=== PATIENT | male | born 1945 | race Caucasian/White ===

== ENCOUNTER 2021-05-13 10:54 | Outpatient (CLI) | payer MEDICARE, MEDICAID, SELFPAY ==
[2021-05-13 11:22] LABS: Absolute Lymphocyte Count 0.83 X10^3/uL (0.83-4.51); Absolute Neutrophil Count 7.2 X10^3/uL (2.0-7.7); Basophil# 0.13 X10^3/uL; Basophil% 1.4 % (0-1); Eosinophil# 0.44 X10^3/uL; Eosinophils% 4.8 % (0-5); Hematocrit 35.8 % (40-54); Hemoglobin 12.2 g/dL (13.0-16.5); Lymphocyte # 0.83 X10^3/ul (0.83-4.51); Lymphocyte % 9.1 % (19-41); Mean Corp Hgb Conc 34.1 g/dL (32-36); Mean Corpuscular Hgb 32.4 pg (27.0-32.0); Mean Corpuscular Volume 95.2 fL (80-94); Mean Platelet Vol. 9.3 fl (6.2-12.0); Monocyte# 0.55 X10^3/uL; NRBC Flagged by Analyzer 0 % (0-5); Neutrophil # 7.17 X10^3/uL (2.7-7.7); Neutrophil % 78.3 % (47-70); Platelet Count 393 K/mm3 (150-450); RBC Distribution Width CV 13.8 % (11.6-14.6); RBC Distribution Width SD 48.6 fl (35.1-43.9); Red Blood Count 3.76 M/mm3 (4.6-6.2); White Blood Count 9.2 K/mm3 (4.4-11.0)
[2021-05-13 11:25] LABS: Erythrocyte Sedimentation Rate 75 mm/hr (0-20)
[2021-05-13 11:39] LABS: ALB/GLOB Ratio 0.5 RATIO (0.9-2.4); AST(SGOT) 52 U/L (15-37); Alanine Aminotransfer ALT/SGPT 23 U/L (16-61); Albumin, Serum 2.3 g/dL (3.2-5.0); Alkaline Phosphatase 366 U/L (45-117); Anion Gap 6 (5-15); BUN 7 mg/dL (7-18); BUN/Creat Ratio 8.3 RATIO (10-20); Calcium,Total 8.5 mg/dL (8.5-10.1); Chloride 106 mmol/L (98-107); Creatinine, Serum 0.84 mg/dL (0.70-1.30); EST Glomerular Filtration Rate 94 mL/min (>60); Est Glom Filt Rate - Afr Amer 114 mL/min (>60); Globulin 5.1 g/dL (2.2-4.2); Glucose 119 mg/dL (74-106); LDH 198 U/L (87-241); Protein, Total 7.4 g/dL (6.4-8.2); Sodium Level 139 mmol/L (136-145)
[2021-05-13 11:52] LABS: D-Dimer Quantitative (DVT/PE) 0.65 FEU/ug/m (0.27-0.49)
[2021-05-13 12:13] LABS: Ammonia < 10.0 umol/L (11-32)
[2021-05-14 16:09] LABS: Anti-Centromere B Ab <0.2 AI (0.0-0.9); Anti-Chromatin <0.2 AI (0.0-0.9); Anti-Jo <0.2 AI (0.0-0.9); Anti-Scleroderma-70 AB <0.2 AI (0.0-0.9); RNP Ab 0.3 AI (0.0-0.9); SJOGREN'S Anti-SS-A test < 0.2 AI (0.0-0.9); SJOGREN'S Anti-SS-B test < 0.2 AI (0.0-0.9); Smith Ab <0.2 AI (0.0-0.9)
[2021-05-15 09:38] LABS: Anti-Mitochondrial AB <20.0 Units (0.0-20.0); Anti-dsDNA Ab <1 IU/mL (0-9)
[2021-05-19 10:09] LABS: Angiotensin Convert Enzyme 76 U/L (14-82); Ceruloplasmin 35.4 mg/dL (16.0-31.0); Endomysial Antibody IgA Negative (Negative); Immunoglobulin A 424 mg/dL (61-437); Immunoglobulin E 1362 IU/mL (6-495); Immunoglobulin G 1622 mg/dL (603-1613)
[2021-05-19 18:30] LABS: AFP, Tumor Marker 2.4 ng/mL (0.0-8.4); Anti-Smooth Muscle ABS 6 Units (0-19); Carbohydrate Ag 19-9 2261 40 U/mL (0-35); Immunoglobulin M 82 mg/dL (15-143); t-Transglutaminase IgA <2 U/mL (0-3)
== END 2021-05-13 23:59 | disposition home or self-care (01) ==
LOC: LAB 10:59
PROVIDERS: Visit Provider Internal Medicine Gastroenterology
DX: K76.0 Fatty (change of) liver, not elsewhere classified (principal); R06.02 Shortness of breath
CPT/HCPCS: 36415; 80053; 82105; 82140; 82164; 82390; 82784; 82785; 83516; 83615; 85025; 85379; 85652; 86140; 86225; 86235; 86255; 86301

== ENCOUNTER 2021-05-13 11:26 | Inpatient (IN) | payer MEDICARE, MEDICAID, SELFPAY ==
[2021-05-13] VITALS (13 sets, daily range): BP systolic 88–139; BP diastolic 56–84; PULSE 57–87; RESP 16–23; TEMP 36.5–36.9; O2SAT 94–100; BMI 26.7; BMI 27.4; BMI 25.0
--- NOTE | 2021-05-13 11:32 | EKG12_ITS ---
Test Reason : UNRESPONSIVE/SIZING SPRAYER Blood Pressure : / mmHG Vent. Rate : 070 BPM Atrial Rate : 070 BPM P-R Int : 192 ms QRS Dur : 120 ms QT Int : 424 ms P-R-T Axes : 000 -62 048 degrees QTc Int : 457 ms Normal sinus rhythm Left axis deviation Right bundle branch block Abnormal ECG Confirmed by RAMILA MONROY, ROSMERY ([id number]), scientific editor KRISH FRITZ ([id number]) on 05/17/2021 11:02:45 AM Referred By: ROBEL Confirmed By:ROSMERY MCGRATH MD
--- NOTE | 2021-05-13 11:37 | CT_ITS ---
STUDY: CT BRAIN WITHOUT CONTRAST REASON FOR EXAM: Male, 75 years old. Altered mental status RADIATION DOSAGE (If Supplied By Facility): CTDIvol = ( 44.99 ) mGy, DLP = ( 796.11 ) mGycm TECHNIQUE: Transaxial CT imaging of the brain was performed without administration of intravenous contrast material. Individualized dose optimization techniques were used for this CT. COMPARISON: No relevant priors. FINDINGS: Normal soft tissue structures. Normal calvarium. There is mild cerebral atrophy with widening of the extra-axial spaces and ventricular dilatation. There are areas of decreased attenuation within the white matter tracts of the supratentorial brain, consistent with microvascular disease changes. Normal basal ganglia and thalami. Normal brainstem. Normal cerebellum. There is no intracranial hemorrhage. There are no findings of an acute ischemic infarction. Atherosclerotic calcification of the cavernous portions of the internal carotid arteries. Normal visualized paranasal sinuses. CT/Brain/Head without Contrast IMPRESSION: Chronic involutional changes of the brain. Electronically Signed: Kong Nieves MD at 12:53 EDT ,
--- NOTE | 2021-05-13 11:38 | EDS_ITS ---
HPI History of Present Illness Chief Complaint: Neuro S/Sx Informant: family Onset/Context/Timing Onset: Today Context: Sudden Onset Timing: - (Improving) Quality: Weakness, aphasia Location: Generalized Worsened by: Nothing Relieved by: Nothing Narrative Narrative: Patient presents with unresponsive episode that occurred today. Patient was getting labs drawn when he became unresponsive. Family was with him and noted that he was unable to speak. Family noted the patient was drooling from his mouth as well. Patient was brought to the emergency department. Currently, patient is able to speak. Patient is able to handle secretions. Patient is confused still. Patient denies any pain or headaches. [facility] Medical History (Updated 05/13/21 @ 16:11 by Estella Simeon) Atherosclerotic heart disease of [place] coronary artery without angina pectoris BMI 29.0-29.9,adult Chronic kidney disease, stage 2 (mild) Exertional dyspnea Fatty liver Generalized pruritus Hypertension Hypokalemia Low vitamin B12 level Lymphoma Mixed hyperlipidemia Stroke/cerebrovascular accident Home Medications amlodipine 5 mg tablet 5 mg PO DAILY 05/11/21 [History Last Taken 05/13/21] omega-3 fatty acids 1,000 mg capsule 1,000 mg PO BID 05/11/21 [History Last Taken 05/13/21] cholecalciferol (vitamin D3) 1,250 mcg PO MO 05/13/21 [History Last Taken ] cyanocobalamin (vitamin B-12) 1,000 mcg IM QMONTH 05/13/21 [History Last Taken 04/28/21] hydroxyzine HCl 10 mg PO TID 05/13/21 [History Last Taken 05/13/21] Allergy/AdvReac Type Severity Reaction Status Date / Time allopurinol Allergy Intermediate UNK Verified 05/13/21 11:28 Family History (Updated 05/11/21 @ 09:41 by Henny Fried) Father Emphysema of lung Mother Cancer Surgical History History of cholecystectomy Social History Smoking Status: Never smoker alcohol intake: never substance use type: does not use ROS ROS ED Constitutional Constitutional ED: Denies chills or fever(s) Eyes Eyes: Denies blurry vision or change in vision ENT ENT ED: Denies rhinorrhea or sore throat Cardiovascular Cardiovascular: Denies chest pain or palpitations Respiratory/Chest Respiratory/Chest: Denies cough or dyspnea Gastrointestinal Gastrointestinal: Reports abdominal pain; Denies nausea or vomiting Genitourinary Genitourinary ED: Denies dysuria or hematuria Musculoskeletal Musculoskeletal: Denies back pain or neck pain Integumentary Denies abscess or rash Neurologic Neurologic: Denies headache(s) or weakness Allergic/Immunologic Allergic/Immunologic ED: Denies mouth swelling or urticaria EXAM Physical Exam Const Vital Signs: 05/13/21 11:28 05/13/21 11:50 05/13/21 12:40 Temperature 98.0 F Temperature Source Temporal Pulse Rate 69 64 57 L Respiratory Rate 17 18 23 H Blood Pressure 88/56 L 111/57 L 117/66 Blood Pressure Mean 66 75 83 Pulse Ox 97 100 95 Oxygen Delivery Method Room Air Room Air Room Air 05/13/21 13:48 Temperature Temperature Source Pulse Rate 64 Respiratory Rate 20 H Blood Pressure 139/84 H Blood Pressure Mean 102 Pulse Ox Oxygen Delivery Method Room Air Positive well nourished and well developed General Appearance ED: well developed and NAD HEENT Reports moist mucous membranes Eyes General Eye ED: Yes scleral icterus Neck supple and no JVD Resp normal respiratory effort and clear to auscultation bilaterally Cardio regular rate and regular rhythm GI non-tender Palpation: soft Neuro CN's II-XII intact bilaterally and no sensory deficits noted Sensorium / Orientation: alert Motor Exam: strength 5/5 throughout MDM MDM MDM Narrative Medical decision making narrative: Stroke alert was not called because the patient symptoms were resolving rapidly while in triage. CBC was within normal limits. PT was INR and PTT were within normal limits. Basic metabolic profile showed slightly elevated glucose of 146. High-sensitivity troponin was less than 3. Lactic acid was slightly elevated at 2.2. Liver profile was ordered and showed an elevated total bilirubin of 5.4 and a direct bilirubin of 4.44. Alk phos was elevated at 343. AST and ALT were basically within normal limits. CT scan of the brain was obtained. There is no acute intracranial abnormality. There are some chronic involutional changes. This was interpreted by the radiologist and reviewed by myself. Portable chest x-ray was obtained. There is 1 view. On my interpretation, there is a left lower lobe pulmonary nodule. There is no acute infiltrate. There is no cardiomegaly. Bony thorax is normal. Radiologist also interpreted the x-ray and measured it at 2.8 x 2.0 cm. He recommended obtaining a CT scan. CT scan of the chest abdomen pelvis was ordered. There is a 3 cm x 1.6 cm nodule in the medial segment of the left lower lobe. There are dilated intrahepatic biliary ducts and common bile duct suggestive of choledocholithiasis in the distal segment of the common bile duct. This was interpreted by the radiologist and reviewed by myself. On reevaluation, patient is now awake, alert, and oriented x3. Patient was advised of his findings. Case was discussed with the hospitalist. She will admit the patient to the hospital. Patient and family understood and were agreeable with the plan. All questions were answered. Lab Data Attestation: I reviewed the patient's lab results. Labs: Laboratory Results - last 24 hr 05/13/21 05/13/21 05/13/21 11:35 11:35 11:35 WBC 10.3 RBC 3.72 L Hgb 11.8 L Hct 36.4 L MCV 97.8 H MCH 31.7 MCHC 32.4 RDW Std Deviation 50.4 H RDW Coeff of Sekou 13.9 Plt Count 441 MPV 9.5 Immature Gran % (Auto) 0.500 Neut % (Auto) 77.5 H Lymph % (Auto) 10.2 L [place] % (Auto) 6.8 Eos % (Auto) 3.8 Baso % (Auto) 1.2 H Absolute Neuts (auto) 8.0 H Absolute Lymphs (auto) 1.05 Nucleated RBC % 0 PT 14.1 INR 1.2 APTT 30.5 Sodium 140 Potassium 3.2 L Chloride 107 Carbon Dioxide 28.0 Anion Gap 5 BUN 7 Creatinine 0.92 Estim Creat Clear Calc 66.09 Est GFR (MDRD) Af Amer 103 Est GFR (MDRD) Non-Af 85 BUN/Creatinine Ratio 7.6 L Glucose 146 H Lactic Acid Calcium 8.6 Total Bilirubin Direct Bilirubin AST ALT Alkaline Phosphatase Troponin I High Sens < 3 L Total Protein Albumin Globulin Urine Color Urine Clarity Urine pH Ur Specific [place] Urine Protein Urine Glucose (UA) Urine Ketones Urine Occult Blood Urine Nitrite Urine Bilirubin Urine Urobilinogen Ur Leukocyte Esterase Urine RBC Urine WBC Ur Squamous Epith Cells Urine Bacteria Urine Mucus 05/13/21 05/13/21 05/13/21 11:35 11:55 14:30 WBC RBC Hgb Hct MCV MCH MCHC RDW Std Deviation RDW Coeff of [place]kou Plt Count MPV Immature Gran % (Auto) Neut % (Auto) Lymph % (Auto) [place] % (Auto) Eos % (Auto) Baso % (Auto) Absolute Neuts (auto) Absolute Lymphs (auto) Nucleated RBC % PT INR APTT Sodium Potassium Chloride Carbon Dioxide Anion Gap BUN Creatinine Estim Creat Clear Calc Est GFR (MDRD) Af Amer Est GFR (MDRD) Non-Af BUN/Creatinine Ratio Glucose Lactic Acid 2.2 H* Calcium Total Bilirubin 5.40 H Direct Bilirubin 4.44 H AST 54 H ALT 23 Alkaline Phosphatase 343 H Troponin I High Sens Total Protein 7.0 Albumin 2.2 L Globulin 4.8 H Urine Color Yellow Urine Clarity Clear Urine pH 7.0 Ur Specific [place] 1.010 Urine Protein 15 H Urine Glucose (UA) Normal Urine Ketones Negative Urine Occult Blood 10 H Urine Nitrite Negative Urine Bilirubin 3 H Urine Urobilinogen 8 H Ur Leukocyte Esterase 25 H Urine RBC 0 SEEN Urine WBC 0-5 SEEN Ur Squamous Epith Cells 0-5 SEEN Urine Bacteria 1+ Urine Mucus 0 SEEN Radiography Diagnostic Testing: Clinical Impression(s) from Imaging Studies Brain CT 05/13/21 11:37 IMPRESSION: Chronic involutional changes of the brain. Electronically Signed: Kong Nieves MD at 12:53 EDT , Chest X-Ray 05/13/21 12:10 IMPRESSION: 2.8 cm x 2 cm nodule in the posterior medial segment of the left lower lobe. CT scan recommended. Electronically Signed: Kong Nieves MD at 12:57 EDT , Chest/Abdomen/Pelvis CT 05/13/21 13:14 IMPRESSION: 3 cm x 1.6 cm heterogeneous nodule in the posterior medial segment of the left lower lobe. Correlation with the biopsy or PET scan recommended. Dilated intrahepatic biliary ducts and common bile duct. Findings suggestive of choledocholithiasis in the distal portion of the common bile duct. The patient is status post cholecystectomy. Electronically Signed: Kong Nieves MD at 13:50 EDT , EKG Initial EKG: Interpretation: Sinus Rhythm (70), No Acute Injury Pattern, RBBB and - (Left axis deviation at -62) Prior EKG tracings: not available for review Discharge Plan Dx/Rx/DC Orders Clinical Impression: Brain TIA, Choledocholithiasis Disposition Disposition: Acute Care Hospital [facility] Discharge Date/Time: 05/13/21 16:11
[2021-05-13] MEDS: 0.9% Normal Saline 1,000 ML 50 ML IV (11:56)
[2021-05-13 11:59] LABS: Absolute Lymphocyte Count 1.05 X10^3/uL (0.83-4.51); Basophil# 0.12 X10^3/uL; Basophil% 1.2 % (0-1); Eosinophil# 0.39 X10^3/uL; Eosinophils% 3.8 % (0-5); Hematocrit 36.4 % (40-54); Hemoglobin 11.8 g/dL (13.0-16.5); Lymphocyte # 1.05 X10^3/ul (0.83-4.51); Lymphocyte % 10.2 % (19-41); Mean Corp Hgb Conc 32.4 g/dL (32-36); Mean Corpuscular Hgb 31.7 pg (27.0-32.0); Mean Corpuscular Volume 97.8 fL (80-94); Mean Platelet Vol. 9.5 fl (6.2-12.0); Monocyte% 6.8 % (0-10); NRBC Flagged by Analyzer 0 % (0-5); Neutrophil # 8.01 X10^3/uL (2.7-7.7); Neutrophil % 77.5 % (47-70); Platelet Count 441 K/mm3 (150-450); RBC Distribution Width CV 13.9 % (11.6-14.6); RBC Distribution Width SD 50.4 fl (35.1-43.9); Red Blood Count 3.72 M/mm3 (4.6-6.2); White Blood Count 10.3 K/mm3 (4.4-11.0)
[2021-05-13 12:04] LABS: International Normalized Ratio 1.2; Prothrombin Time (Protime)PT. 14.1 SECONDS (11.7-14.9)
[2021-05-13 12:05] LABS: Partial Thromboplast Time 30.5 Seconds (24.1-36.2)
[2021-05-13 12:08] LABS: Anion Gap 5 (5-15); BUN 7 mg/dL (7-18); BUN/Creat Ratio 7.6 RATIO (10-20); Calcium,Total 8.6 mg/dL (8.5-10.1); Chloride 107 mmol/L (98-107); Creatinine, Serum 0.92 mg/dL (0.70-1.30); EST Glomerular Filtration Rate 85 mL/min (>60); Est Glom Filt Rate - Afr Amer 103 mL/min (>60); Estimated Creatinine Clearance 66.09 ml/min; Glucose 146 mg/dL (74-106); Potassium 3.2 mmol/L (3.5-5.1); Sodium Level 140 mmol/L (136-145); Troponin-I HS < 3 pg/mL (3.0-78.0)
--- NOTE | 2021-05-13 12:10 | RAD_ITS ---
STUDY: X-RAY CHEST REASON FOR EXAM: Male, 75 years old. Stroke TECHNIQUE: Single AP portable view of the chest. COMPARISON: None. FINDINGS: EKG electrodes are seen. There is a 2 cm x 2.8 cm nodule in the posterior medial segment of the left lower lobe. There is no demonstrated pleural abnormality. Normal size heart. Normal mediastinum and hernandez. Normal visualized pulmonary arteries. There is atherosclerotic tortuosity of the aortic arch and descending thoracic aorta. There are diffuse degenerative changes of the visualized thoracic spine. Dextroscoliosis. Healed fracture of the right fifth rib. There is no demonstrated abnormality of the visualized soft tissue structures of the upper abdomen. RAD/Chest 1 View (Portable) IMPRESSION: 2.8 cm x 2 cm nodule in the posterior medial segment of the left lower lobe. CT scan recommended. Electronically Signed: Kong Nieves MD at 12:57 EDT ,
[2021-05-13 12:27] LABS: Lactic Acid 2.2 mmol/L (0.4-1.9)
--- NOTE | 2021-05-13 13:14 | CT_ITS ---
STUDY: CT CHEST, ABDOMEN T PELVIS WITH CONTRAST REASON FOR EXAM: Male, 75 years old. Pulmonary nodule and jaundice. RADIATION DOSAGE (If Supplied By Facility): CTDIvol = ( 14.69 ) mGy, DLP = ( 1343.65 ) mGycm TECHNIQUE: Transaxial imaging was performed following intravenous administration of IV 100mL [id number]-300. Individualized dose optimization techniques were used for this CT. COMPARISON: Comparison made with prior chest radiograph done earlier today. FINDINGS: CHEST There is a 3 cm x 1.6 cm nodular density in the posterior medial segment of the left lower lobe. This has a heterogeneous appearance. Correlation with a PET scan or possible tissue diagnosis is recommended. There is no demonstrated pleural abnormality. There are calcifications of the coronary arteries. Normal mediastinum. Normal hilar regions. Normal unenhanced pulmonary arteries. Normal aorta arch and descending thoracic aorta. There are multi-level degenerative changes of the thoracic spine. Moderate sized hiatal hernia. ABDOMEN There is evidence of central intrahepatic biliary ductal dilatation. Dilated common bile duct proximally measuring 2.2 cm. In its distal portion, there appears to be 3 stones. This is suggestive of choledocholithiasis. There are surgical clips in the gallbladder fossa consistent with a prior cholecystectomy. Normal spleen. There is diffuse atrophy of the pancreas. Normal bilateral adrenal glands. Normal right kidney. Normal left kidney. Normal visualized stomach. Normal small intestine. There are multiple colonic diverticula consistent with diverticulosis. The appendix is visualized and appears normal. There is diffuse atherosclerotic calcification of the abdominal aorta, without a demonstrated aneurysm. Normal inferior vena cava. Normal retroperitoneum. Normal abdominal wall. There are diffuse degenerative changes of the visualized lumbar spine. PELVIS Normal urinary bladder. Prostatic enlargement. Prostatic calcification. Normal visualized small intestine. Normal visualized colon. There is no pelvic fluid. There is no pelvic lymphadenopathy or mass lesion. There is diffuse atherosclerotic calcification of the pelvic arteries. CT/CT Chest, Abd, Pel w/Contrast IMPRESSION: 3 cm x 1.6 cm heterogeneous nodule in the posterior medial segment of the left lower lobe. Correlation with the biopsy or PET scan recommended. Dilated intrahepatic biliary ducts and common bile duct. Findings suggestive of choledocholithiasis in the distal portion of the common bile duct. The patient is status post cholecystectomy. Electronically Signed: Kong Nieves MD at 13:50 EDT ,
[2021-05-13 14:15] LABS: AST(SGOT) 54 U/L (15-37); Alanine Aminotransfer ALT/SGPT 23 U/L (16-61); Albumin, Serum 2.2 g/dL (3.2-5.0); Alkaline Phosphatase 343 U/L (45-117); Bilirubin, Direct 4.44 mg/dL (0.00-0.30); Globulin 4.8 g/dL (2.2-4.2)
--- NOTE | 2021-05-13 14:33 | HP.PCM.HOS_ITS ---
HPI - General General Date of Admission: 05/13/21 HPI Narrative JERRICA ARGUTEA, is a 75 M with a PMH as outlined who presents via the ED after there was a rapid response called when he was getting outpatient blood work. He was noted to have a brief episode of inability to speak and drooling also. Symptoms had resolved by the time he got to the ED. He had been scheduled to have the labs done on outpatient basis for abnormal liver enzymes. Vitals in the ED were 139/84, VA of 64, RR of 20 and he was saturating at 95% on room air. CBC showed hemoglobin of 11.8 with WBC of 10.3 and platelets of 441. D-dimer was 0.65 which corrected for his age of 75, was actually within normal limits. INR was 1.2. Chemistry was significant for sodium of 140 and potassium of 3.2 as well as lactic acid of 2.2. Total bilirubin was 5.4 indirect globin was 4.44 with AST of 54 and ALP of 343. Ammonia level was less than 10. CT of the chest, abdomen and pelvis with contrast showed a 3 cm x 1.6 cm heterogeneous nodule in the posterior medial segment of the left lower lobe and dilated intrahepatic biliary ducts and common bile duct suggestive of choledocholithiasis in the distal portion of the common bile duct. Patient is s/p cholecystectomy. He has been admitted to be managed for syncope, concerning for TIA and abnormal liver enzymes. [facility] Medical History (Updated 05/13/21 @ 16:11 by Estella Simeon) Atherosclerotic heart disease of [place] coronary artery without angina pectoris BMI 29.0-29.9,adult Chronic kidney disease, stage 2 (mild) Exertional dyspnea Fatty liver Generalized pruritus Hypertension Hypokalemia Low vitamin B12 level Lymphoma Mixed hyperlipidemia Stroke/cerebrovascular accident Home Medications amlodipine 5 mg tablet 5 mg PO DAILY 05/11/21 [History Last Taken 05/13/21] omega-3 fatty acids 1,000 mg capsule 1,000 mg PO BID 05/11/21 [History Last Taken 05/13/21] cholecalciferol (vitamin D3) 1,250 mcg PO MO 05/13/21 [History Last Taken 05/09/21] cyanocobalamin (vitamin B-12) 1,000 mcg IM QMONTH 05/13/21 [History Last Taken 04/28/21] hydroxyzine HCl 10 mg PO TID 05/13/21 [History Last Taken 05/13/21] Allergy/AdvReac Type Severity Reaction Status Date / Time allopurinol Allergy Intermediate UNK Verified 05/13/21 11:28 Family History (Updated 05/11/21 @ 09:41 by Henny Fried) Father Emphysema of lung Mother Cancer Surgical History History of cholecystectomy Social History Smoking Status: Never smoker alcohol intake: never substance use type: does not use ROS Constitutional Constitutional: Denies fatigue, fever(s), malaise or weakness Eyes Eyes: Denies change in vision ENT HEENT: Reports nasal congestion; Denies dysphagia or headache(s) Cardiovascular Cardiovascular: Reports syncope; Denies chest pain, dyspnea on exertion, edema, lightheadedness, orthopnea, palpitations, paroxysmal nocturnal dyspnea or rapid heart rate Respiratory/Chest Respiratory/Chest: Denies cough, dyspnea, productive cough, shortness of breath at rest or shortness of breath with exertion Gastrointestinal Gastrointestinal: Denies abdominal pain, diarrhea, dyspepsia, nausea or vomiting Genitourinary Genitourinary: Denies burning urination, dysuria, hematuria, nocturia or urinary frequency Musculoskeletal Musculoskeletal: Denies back pain or joint pain Neurologic Neurologic: Denies confusion, dizziness, focal weakness, headache(s), seizures or syncope Psychiatric Psychiatric: Reports anxiety Hematologic/Lymphatic Hematologic/Lymphatic: Denies anemia Vital Signs Vital Signs Vital Signs: 05/13/21 11:28 05/13/21 11:50 05/13/21 12:40 Temperature 98.0 F Temperature Source Temporal Pulse Rate 69 64 57 L Respiratory Rate 17 18 23 H Blood Pressure 88/56 L 111/57 L 117/66 Blood Pressure Mean 66 75 83 Pulse Ox 97 100 95 Oxygen Delivery Method Room Air Room Air Room Air 05/13/21 13:48 Temperature Temperature Source Pulse Rate 64 Respiratory Rate 20 H Blood Pressure 139/84 H Blood Pressure Mean 102 Pulse Ox Oxygen Delivery Method Room Air Weight Weight: 176 lb Body Mass Index (BMI) 26.7 Physical Exam Const alert, oriented x3 and no apparent distress General Appearance: cooperative HEENT normocephalic, head/scalp atraumatic, hearing grossly normal bilaterally and moist oral mucous membranes Eyes PERRL, EOMs intact bilaterally and conjunctivae normal Neck no lymphadenopathy and supple Resp normal respiratory effort, no retractions, no use of accessory muscles and clear to auscultation bilaterally Cardio regular rate, regular rhythm, S1 normal heart sound, S2 normal heart sound and no murmurs GI normal to inspection, nondistended, normoactive bowel sounds, soft to palpation, non-tender and non-distended Extremity normal to inspection, full ROM and no clubbing, cyanosis or edema Peripheral Pulses: Yes pulses 2+ throughout Skin no rashes or lesions noted Neuro oriented x3 and CN's II-XII intact bilaterally Sensorium / Orientation: awake and alert Psych Psych Narrative: flat affect Results Lab / Micro Data Result Diagrams: 05/13/21 11:35 05/13/21 11:35 Labs: Laboratory Results - last 24 hr 05/13/21 11:35: WBC 10.3, RBC 3.72 L, Hgb 11.8 L, Hct 36.4 L, MCV 97.8 H, MCH 31.7, MCHC 32.4, RDW Std Deviation 50.4 H, RDW Coeff of Sekou 13.9, Plt Count 441, MPV 9.5, Immature Gran % (Auto) 0.500, Neut % (Auto) 77.5 H, Lymph % (Auto) 10.2 L, [place] % (Auto) 6.8, Eos % (Auto) 3.8, Baso % (Auto) 1.2 H, Absolute Neuts (auto) 8.0 H, Absolute Lymphs (auto) 1.05, Nucleated RBC % 0 05/13/21 11:35: PT 14.1, INR 1.2, APTT 30.5 05/13/21 11:35: Sodium 140, Potassium 3.2 L, Chloride 107, Carbon Dioxide 28.0, Anion Gap 5, BUN 7, Creatinine 0.92, Estim Creat Clear Calc 66.09, Est GFR (MDRD) Af Amer 103, Est GFR (MDRD) Non-Af 85, BUN/Creatinine Ratio 7.6 L, Glucose 146 H, Calcium 8.6, Troponin I High Sens < 3 L 05/13/21 11:35: Total Bilirubin 5.40 H, Direct Bilirubin 4.44 H, AST 54 H, ALT 23, Alkaline Phosphatase 343 H, Total Protein 7.0, Albumin 2.2 L, Globulin 4.8 H 05/13/21 11:55: Lactic Acid 2.2 H* Radiology Impression Brain CT 05/13/21 11:37 IMPRESSION: Chronic involutional changes of the brain. Electronically Signed: Kong Nieves MD at 12:53 EDT , Chest X-Ray 05/13/21 12:10 IMPRESSION: 2.8 cm x 2 cm nodule in the posterior medial segment of the left lower lobe. CT scan recommended. Electronically Signed: Kong Nieves MD at 12:57 EDT , Chest/Abdomen/Pelvis CT 05/13/21 13:14 IMPRESSION: 3 cm x 1.6 cm heterogeneous nodule in the posterior medial segment of the left lower lobe. Correlation with the biopsy or PET scan recommended. Dilated intrahepatic biliary ducts and common bile duct. Findings suggestive of choledocholithiasis in the distal portion of the common bile duct. The patient is status post cholecystectomy. Electronically Signed: Kong Nieves MD at 13:50 EDT , Assessment & Plan Assessment/Plan (1) Brain TIA: (2) Choledocholithiasis: PLAN: #Syncope, concerning for TIA * admit to pcu with telemetry * CT of the brain showed no acute intracranial pathology. * Check MRI of the brain. Patient states he is very claustrophobic so would want a medication to help calm him down before he has the MRI. * 2D echo. P.o. aspirin 81 mg daily. * Check orthostatics. PT OT consult. Fall precautions. * Hold off on giving statins for now on account of impaired liver enzymes. * #Hyperbilirubinemia * Bilirubin is elevated at 5.44. * Had CT of the abdomen done which showed dilated intrahepatic biliary ducts and common bile duct suggestive of possible choledocholithiasis in the distal portion of the common bile duct. Patient is s/p cholecystectomy. He also had a 3 cm x 1.6 cm heterogeneous nodule in the posterior medial segment of the left lower lobe of the lung. * Follows with gastroenterology. Per GI, will need ERCP while stroke has been ruled out. * #Hypertension: On amlodipine. DVT prophylaxis: SCDs. CODE STATUS: Full code * Patient and daughter counseled extensively about different types of CODE STATUS including full code, DNR CCA and DNR CCA. Patient elects to be full code. * Total [id number] time 16 minutes. Charges/Coding Visit Charges OBSV E&M: 36611 Initial observation care L3 Procedures Hospitalists Procedures: 12314 Advncd Care Plan 30 Min
[2021-05-13 14:36] LABS: Mucous, Urine 0 SEEN /hpf (<or=2+); Red Blood Cells-Urine 0 SEEN /hpf (0-5)
[2021-05-13 14:43] LABS: Color, Urine Yellow (Yellow); Glucose, Dipstick Normal (Normal); Ketone-Dipstick Negative (Negative); Leukocyte Esterase-Dipstick 25 /ul (Negative); Nitrite-Dipstick Negative (Negative); Occult Blood-Urine 10 /ul (Negative); Protein-Dipstick 15 mg/dl (Negative); Urine Clarity Clear (Clear); Urine Urobilinogen 8 mg/dl (Normal)
[2021-05-13 14:48] LABS: Urine Bilirubin Dipstick 3 mg/dL (Negative)
[2021-05-13 15:09] LABS: Bacteria 1+ /hpf (None Seen); Squamous Epithelial Cells - UA 0-5 SEEN /hpf (0-5); White Blood Cells 0-5 SEEN /hpf (0-5)
[2021-05-13 15:59] LABS: Reflex Lactate? Y
[2021-05-13 16:56] LABS: Lactic Acid 1.9 mmol/L (0.4-1.9)
[2021-05-13 17:14] LABS: Troponin-I HS < 3 pg/mL (3.0-78.0)
--- NOTE | 2021-05-13 18:15 | CON.PCM.GI_ITS ---
HPI Consult Data Date of Consult: 05/13/21 HPI Narrative HPI Narrative: JERRICA ARGUETA, is a 75 M who presented to the office today for Initial consultation for fatty liver disease. He is a resident of [facility]. He was noted to be jaundice during his admission with daughter reporting that he was previously diagnosed with fatty liver during hospit alization with [facility]. He was admitted to [facility] 11.. for in acute rhabdomyolysis without renal failure as a result of being on the ground for approximately three days secondary to weakness and fever. He was also found to have MRSA in his blood likely secondary to severe BLE cellulitis infection r/t scratching and bedbug infection and a complicated UTI. Reports SOB with exertion since discharge. 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 He presents here for evaluation of an fatty liver. His daughter who is with him has noticed he become more yellow. He denies any history of alcohol abuse or even usage in the past. He has no previous history of hepatitis C. He has no tattoos. He has not received any blood transfusions. As previously ordered, she thinks that his father of liver disease that was likely from alcoholism. He has been complaining of some itching on his extremities. He does not sleep very well. Says he usually falls asleep around 1:00 in the morning and wakes up in the afternoon the next day. He knows who the president is at this time. He knows what year it is at this time. He knows his name and his date of . He denies any history of ascites or GI bleeding. We will send him from the clinic over for biochemical evaluation. Patient was getting labs drawn when he became unresponsive. Family was with him and noted that he was unable to speak. Family noted the patient was drooling from his mouth as well. Patient was brought to the emergency department. Currently, patient is able to speak. Patient is able to handle secretions. Patient is confused still. Patient denies any pain or headaches. His initial CT is pending to see if he had an acute stroke. His biochemical profile did show elevated liver enzymes consistent with cholestatic hepatitis and jaundice. His CT scan of the chest abdomen pelvis had shown a suspicious mass in his lungs and multiple stones in his common bile duct. [facility] Medical History (Updated 05/13/21 @ 16:11 by Estella Simeon) Atherosclerotic heart disease of [place] coronary artery without angina pectoris BMI 29.0-29.9,adult Chronic kidney disease, stage 2 (mild) Exertional dyspnea Fatty liver Generalized pruritus Hypertension Hypokalemia Low vitamin B12 level Lymphoma Mixed hyperlipidemia Stroke/cerebrovascular accident Home Medications amlodipine 5 mg tablet 5 mg PO DAILY 05/11/21 [History Last Taken 05/13/21] omega-3 fatty acids 1,000 mg capsule 1,000 mg PO BID 05/11/21 [History Last Taken 05/13/21] cholecalciferol (vitamin D3) 1,250 mcg PO MO 05/13/21 [History Last Taken 05/09/21] cyanocobalamin (vitamin B-12) 1,000 mcg IM QMONTH 05/13/21 [History Last Taken 04/28/21] hydroxyzine HCl 10 mg PO TID 05/13/21 [History Last Taken 05/13/21] Allergy/AdvReac Type Severity Reaction Status Date / Time allopurinol Allergy Intermediate UNK Verified 05/13/21 11:28 Family History (Updated 05/11/21 @ 09:41 by Henny Fried) Father Emphysema of lung Mother Cancer Surgical History History of cholecystectomy Social History Smoking Status: Never smoker alcohol intake: never substance use type: does not use ROS Review of Systems ROS Unobtainable: other Constitutional Constitutional: Denies fatigue, fever(s), poor appetite, weight gain or weight loss ENT HEENT: Denies mouth lesions Cardiovascular Cardiovascular: Denies abdominal bloating, abdominal edema or abdominal pain Respiratory/Chest Respiratory/Chest: Denies change in mental status, change in phlegm color, chest congestion or chest tightness Gastrointestinal Gastrointestinal: Denies belching, bloating, change in bowel habits, change in stool character, chewing difficulty, coffee ground emesis, constipation, 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, diarrhea, dyspepsia, dysphagia, early satiety, excessive flatus, fecal incontinence, heartburn, hematemesis, hematochezia, hemorrhoids, loose stools, melena, nausea, odynophagia, rectal bleeding, tenesmus, vomiting or weight changes Genitourinary Genitourinary: Denies abdominal discomfort, burning urination or itching Musculoskeletal Musculoskeletal: Reports as per HPI; Denies muscle weakness or myalgias Integumentary Integumentary: Denies jaundice Neurologic Neurologic: Denies lack of coordination or weakness Psychiatric Psychiatric: Denies confusion, depression, memory loss, mood swings, paranoia or suicidal ideation Endocrine Endocrinology: Denies systems reviewed and no addt'l complaints, except as documented Hematologic/Lymphatic Hematologic/Lymphatic: Denies anemia, easy bleeding, easy bruising or lymphadenopathy Allergic/Immunologic Allergic/Immunologic: Denies systems reviewed and no addt'l complaints, except as documented Physical Exam Const alert General Appearance: cooperative Orientation / Consciousness: oriented to person HEENT hearing grossly normal bilaterally Head and Scalp: normal to inspection Face and Sinus: face symmetric Nose: external nose normal Mouth: oral and palatal mucosa normal Eyes conjunctivae normal General Eye: normal appearance of both eyes Neck full ROM General: normal visual inspection Lymph Lymphatic: no lymphadenopathy noted Chest inspection of chest normal and palpation of chest normal Chest: symmetrical chest wall rise Resp normal respiratory effort Effort and Inspection: able to speak in complete sentences Cardio regular rate GI non-distended Percussion: normal to percussion Rectal Exam: deferred Neuro Speech: speech normal Gait (Neuro): normal gait Lab / Micro Data Result Diagrams: 05/13/21 11:35 05/13/21 11:35 Labs: Laboratory Results - last 24 hr 05/13/21 11:35: WBC 10.3, RBC 3.72 L, Hgb 11.8 L, Hct 36.4 L, MCV 97.8 H, MCH 31.7, MCHC 32.4, RDW Std Deviation 50.4 H, RDW Coeff of [place] 13.9, Plt Count 441, MPV 9.5, Immature Gran % (Auto) 0.500, Neut % (Auto) 77.5 H, Lymph % (Auto) 10.2 L, [place] % (Auto) 6.8, Eos % (Auto) 3.8, Baso % (Auto) 1.2 H, Absolute Neuts (auto) 8.0 H, Absolute Lymphs (auto) 1.05, Nucleated RBC % 0 05/13/21 11:35: PT 14.1, INR 1.2, APTT 30.5 05/13/21 11:35: Sodium 140, Potassium 3.2 L, Chloride 107, Carbon Dioxide 28.0, Anion Gap 5, BUN 7, Creatinine 0.92, Estim Creat Clear Calc 66.09, Est GFR (MDRD) Af Amer 103, Est GFR (MDRD) Non-Af 85, BUN/Creatinine Ratio 7.6 L, Glucose 146 H, Calcium 8.6, Troponin I High Sens < 3 L 05/13/21 11:35: Total Bilirubin 5.40 H, Direct Bilirubin 4.44 H, AST 54 H, ALT 23, Alkaline Phosphatase 343 H, Total Protein 7.0, Albumin 2.2 L, Globulin 4.8 H 05/13/21 11:55: Lactic Acid 2.2 H* 05/13/21 14:30: Urine Color Yellow, Urine Clarity Clear, Urine pH 7.0, Ur Specific [place] 1.010, Urine Protein 15 H, Urine Glucose (UA) Normal, Urine Ketones Negative, Urine Occult Blood 10 H, Urine Nitrite Negative, Urine Bilirubin 3 H, Urine Urobilinogen 8 H, Ur Leukocyte Esterase 25 H, Urine RBC 0 SEEN, Urine WBC 0-5 SEEN, Ur Squamous Epith Cells 0-5 SEEN, Urine Bacteria 1+, Urine Mucus 0 SEEN 05/13/21 16:16: Lactic Acid 1.9 05/13/21 16:16: Troponin I High Sens < 3 L Radiology Impression Brain CT 05/13/21 11:37 IMPRESSION: Chronic involutional changes of the brain. Electronically Signed: Kong Nieves MD at 12:53 EDT , Chest X-Ray 05/13/21 12:10 IMPRESSION: 2.8 cm x 2 cm nodule in the posterior medial segment of the left lower lobe. CT scan recommended. Electronically Signed: Kong Nieves MD at 12:57 EDT , Chest/Abdomen/Pelvis CT 05/13/21 13:14 IMPRESSION: 3 cm x 1.6 cm heterogeneous nodule in the posterior medial segment of the left lower lobe. Correlation with the biopsy or PET scan recommended. Dilated intrahepatic biliary ducts and common bile duct. Findings suggestive of choledocholithiasis in the distal portion of the common bile duct. The patient is status post cholecystectomy. Electronically Signed: Kong Nieves MD at 13:50 EDT , Assessment & Plan Assessment/Plan (1) Choledocholithiasis: PLAN: Patient will need a ERCP. I will put him on antibiotics to help prevent cholangitis. At this time he is stable and getting worked up for an acute CVA. Once he is cleared from a medical standpoint we can take him for ERCP with stone removal. Charges/Coding Visit Charges Inpatient E&M: 16546 Init Hosp L3
[2021-05-13] MEDS: Potassium Chloride Oral Tablet 20 MEQ 60 MEQ PO (20:06)
[2021-05-13] MEDS: hydrOXYzine 10 MG Tablet PO (20:07)
[2021-05-13] MEDS: Omega-3 Acid Ethyl Esters 1 GM Capsule PO (20:07)
[2021-05-14] VITALS (12 sets, daily range): BP systolic 121–136; BP diastolic 52–76; PULSE 57–74; RESP 18; TEMP 36.7–36.8; O2SAT 95–100; BMI 25.0
[2021-05-14] MEDS: 0.9% Normal Saline 1,000 ML 50 ML IV (05:38)
[2021-05-14] MEDS: hydrOXYzine 10 MG Tablet PO ×3 (05:38→20:50)
--- NOTE | 2021-05-14 05:55 | ECHOD_ITS ---
Reason For Study: tia/cva Procedure This was a 2D Doppler, Color Flow transthoracic echocardiogram. Exam performed portable in patient room. Left Ventricle Normal left ventricle. The estimated ejection fraction is 55-60 %. Right Ventricle Normal right ventricle. Normal systolic function. Atria Normal left atrium. Normal right atrium. Intact atrial septum. Mitral Valve The mitral valve is structurally normal. No prolapse or stenosis seen. Trivial mitral valve insufficiency. Tricuspid Valve Normal tricuspid valve. No tricuspid valve insufficiency. Aortic Valve Normal aortic valve. Pulmonic Valve The pulmonic valve is not well visualized. Great Vessels Normal aortic root. Pericardium/Pleural No pericardial effusion. Medication Performed a rapid injection of agitated mix of 9 cc saline and 1cc air to assess for atrial septal defect. MMode/2D Measurements & Calculations LVIDd: 3.7 cm IVSd: 1.1 cm Ao root diam: 3.6 cm LVIDs: 2.6 cm LVPWd: 1.1 cm RVDd: 3.5 cm FS: 28.8 % LAV(MOD-sp4): 56.1 ml LVAd ap4: 31.0 cm2 LVAd ap2: 26.7 cm2 LVLd ap4: 8.1 cm LVLd ap2: 8.7 cm EDV(MOD-sp4): 97.6 ml EDV(MOD-sp2): 67.2 ml EDV(sp4-el): 100.8 ml EDV(sp2-el): 69.0 ml LVAs ap4: 17.3 cm2 LVAs ap2: 14.3 cm2 LVLs ap4: 6.7 cm LVLs ap2: 6.8 cm ESV(MOD-sp4): 38.1 ml ESV(MOD-sp2): 25.1 ml ESV(sp4-el): 38.0 ml ESV(sp2-el): 25.2 ml EF(MOD-sp4): 61.0 % EF(MOD-sp2): 62.6 % EF(sp4-el): 62.3 % SV(MOD-sp4): 59.5 ml SV(MOD-sp2): 42.1 ml SV(sp4-el): 62.8 ml LA A4 area: 21.5 cm2 LA dimension(2D): 3.8 cm RA A4 area: 13.9 cm2 Time Measurements MV dec time: 0.37 sec Doppler Measurements & Calculations MV E max michael: 73.3 cm/sec Lat Peak E' Michael: 10.2 cm/sec Med Peak E' Michael: 7.3 cm/sec MV A max michael: 110.3 cm/sec E/E' lat: 7.2 E/E' med: 10.1 MV E/A: 0.66 Ao V2 max: 160.2 cm/sec LV V1 max: 144.1 cm/sec TR max michael: 270.4 cm/sec Ao max P.3 mmHg LV V1 max P.3 mmHg TR max P.3 mmHg ECHO/Echo Complete Interpretation Summary The estimated ejection fraction is 55-60 %. Normal LV systolic function Negative Buble study No previous study to compare Ordering Physician: Natasha Arguelles Performed By: Christina Wesley RDCS, RVT
[2021-05-14 05:59] LABS: Absolute Lymphocyte Count 1.08 X10^3/uL (0.83-4.51); Absolute Neutrophil Count 5.8 X10^3/uL (2.0-7.7); Basophil# 0.07 X10^3/uL; Basophil% 0.9 % (0-1); Eosinophil# 0.55 X10^3/uL; Eosinophils% 6.8 % (0-5); Hematocrit 29.5 % (40-54); Lymphocyte # 1.08 X10^3/ul (0.83-4.51); Lymphocyte % 13.4 % (19-41); Mean Corp Hgb Conc 33.9 g/dL (32-36); Mean Corpuscular Hgb 32.2 pg (27.0-32.0); Mean Corpuscular Volume 94.9 fL (80-94); Mean Platelet Vol. 9.6 fl (6.2-12.0); Monocyte# 0.54 X10^3/uL; Monocyte% 6.7 % (0-10); NRBC Flagged by Analyzer 0 % (0-5); Neutrophil # 5.78 X10^3/uL (2.7-7.7); Neutrophil % 71.8 % (47-70); Platelet Count 292 K/mm3 (150-450); RBC Distribution Width CV 13.8 % (11.6-14.6); RBC Distribution Width SD 47.7 fl (35.1-43.9); Red Blood Count 3.11 M/mm3 (4.6-6.2); White Blood Count 8.1 K/mm3 (4.4-11.0)
[2021-05-14 06:49] LABS: Anion Gap 6 (5-15); BUN 7 mg/dL (7-18); Chloride 110 mmol/L (98-107); Cholesterol 185 mg/dL (200); EST Glomerular Filtration Rate 116 mL/min (>60); Est Glom Filt Rate - Afr Amer 140 mL/min (>60); Estimated Creatinine Clearance 64.89 ml/min; Glucose 89 mg/dL (74-106); High Density Lipoprotein 16 mg/dL; Potassium 3.4 mmol/L (3.5-5.1); Sodium Level 141 mmol/L (136-145); Triglycerides 188 mg/dL; Very Low Density Lipoprotein 38 mg/dL (5-40)
[2021-05-14] MEDS: Omega-3 Acid Ethyl Esters 1 GM Capsule PO ×2 (08:08→20:50)
[2021-05-14] MEDS: Potassium Chloride Oral Tablet 20 MEQ 40 MEQ PO (08:09)
[2021-05-14] MEDS: Aspirin 81 MG TAB.CHEW PO (08:12)
[2021-05-14] MEDS: amLODIPine 5 MG Tablet PO (08:12)
[2021-05-14] MEDS: LORazepam 2 MG/ML Syringe IV (11:17)
[2021-05-14] MEDS: 0.9% Saline Lock 10 ML Syringe IV (11:18)
--- NOTE | 2021-05-14 11:45 | MRI_ITS ---
EXAM: MR HEAD WITHOUT INTRAVENOUS CONTRAST CLINICAL INDICATION: Expressive aphasia. TECHNIQUE: Multiplanar and multisequence MR images of the brain were obtained without intravenous contrast. This report was created using [employer] report generation technology. COMPARISON: CT head without contrast 05/13/2021. FINDINGS: BRAIN AND EXTRA-AXIAL SPACES: No diffusion restriction to suspect acute or subacute ischemic infarct. T2 FLAIR hyperintensity foci in the periventricular white matter more than subcortical white matter are chronic white matter ischemic changes. No intra- or extra-axial hemorrhage. No intracranial mass or mass effect. Posterior fossa structures are unremarkable. No hydrocephalus. Basal cisterns are patent. SELLA: Unremarkable. Normal sella turcica, pituitary gland, infundibular stalk, optic chiasm and hypothalamus. AUDITORY SYSTEM: Unremarkable. The internal auditory canals are patent. BONES/JOINTS: Unremarkable. No discrete lytic or blastic abnormalities. SINUSES: Unremarkable as visualized. Clear. MASTOID AIR CELLS: Unremarkable as visualized. Clear. ORBITS: Unremarkable as visualized. Both globes, extraocular muscles, optic nerves and retrobulbar fat appear unremarkable. VASCULATURE: Unremarkable as visualized. Normal flow voids in the major intracranial circulation. MRI/Brain without Contrast IMPRESSION: 1. No MRI evidence of acute or subacute ischemic infarct or acute intracranial abnormality. 2. Chronic white matter ischemic changes in both cerebral hemispheres. Electronically Signed: Oneil Rodríguez MD at 14:10 EDT ,
--- NOTE | 2021-05-14 13:50 | PN.HOSP_ITS ---
Subjective Subjective Patient seen and examined. He said he felt better and had no active complaints overnight. Review of systems is otherwise negative. He had MRI of the brain today and report is pending. Objective Data Objective Data Vital Signs: Vital Signs Temp Pulse Resp BP Pulse Ox 98.1 F 60 18 121/61 H 99 05/14/21 12:00 05/14/21 12:00 05/14/21 12:00 05/14/21 12:00 05/14/21 12:00 Oxygen Delivery Method Room Air Weight: 174 lb 8 oz Body Mass Index (BMI) 25.0 Intake & Output: Intake and Output for Last 24 Hours 05/12/21 05/13/21 05/14/21 23:59 23:59 23:59 Intake Total 480 / 780 1425 / 1425 Output Total 200 / 200 Balance 480 / 780 1225 / 1225 Lab / Micro Data Result Diagrams: 05/14/21 05:46 05/14/21 05:46 Labs: Laboratory Results - last 24 hr 05/13/21 11:35: Total Bilirubin 5.40 H, Direct Bilirubin 4.44 H, AST 54 H, ALT 23, Alkaline Phosphatase 343 H, Total Protein 7.0, Albumin 2.2 L, Globulin 4.8 H 05/13/21 14:30: Urine Color Yellow, Urine Clarity Clear, Urine pH 7.0, Ur Specific [place] 1.010, Urine Protein 15 H, Urine Glucose (UA) Normal, Urine Ketones Negative, Urine Occult Blood 10 H, Urine Nitrite Negative, Urine Bilirubin 3 H, Urine Urobilinogen 8 H, Ur Leukocyte Esterase 25 H, Urine RBC 0 SEEN, Urine WBC 0-5 SEEN, Ur Squamous Epith Cells 0-5 SEEN, Urine Bacteria 1+, Urine Mucus 0 SEEN 05/13/21 16:16: Lactic Acid 1.9 05/13/21 16:16: Troponin I High Sens < 3 L 05/14/21 05:46: WBC 8.1, RBC 3.11 L, Hgb 10.0 L, Hct 29.5 L, MCV 94.9 H, MCH 32.2 H, MCHC 33.9, RDW Std Deviation 47.7 H, RDW Coeff of [place] 13.8, Plt Count 292, MPV 9.6, Immature Gran % (Auto) 0.400, Neut % (Auto) 71.8 H, Lymph % (Auto) 13.4 L, [place] % (Auto) 6.7, Eos % (Auto) 6.8 H, Baso % (Auto) 0.9, Absolute Neuts (auto) 5.8, Absolute Lymphs (auto) 1.08, Nucleated RBC % 0 05/14/21 05:46: Sodium 141, Potassium 3.4 L, Chloride 110 H, Carbon Dioxide 25.0, Anion Gap 6, BUN 7, Creatinine 0.70, Estim Creat Clear Calc 64.89, Est GFR (MDRD) Af Amer 140, Est GFR (MDRD) Non-Af 116, BUN/Creatinine Ratio 10.0, Glucose 89, Calcium 8.0 L, Triglycerides 188, Cholesterol 185, LDL Cholesterol 131 H, VLDL Cholesterol 38, HDL Cholesterol 16 L Radiography Diagnostic Testing: Radiology Impression Chest/Abdomen/Pelvis CT 05/13/21 13:14 IMPRESSION: 3 cm x 1.6 cm heterogeneous nodule in the posterior medial segment of the left lower lobe. Correlation with the biopsy or PET scan recommended. Dilated intrahepatic biliary ducts and common bile duct. Findings suggestive of choledocholithiasis in the distal portion of the common bile duct. The patient is status post cholecystectomy. Electronically Signed: Kong Nieves MD at 13:50 EDT , Echocardiogram 05/14/21 05:55 Interpretation Summary The estimated ejection fraction is 55-60 %. Normal LV systolic function Negative Buble study No previous study to compare Ordering Physician: Natasha Arguelles Performed By: Christina Wesley, RDCS, RVT Physical Exam Const alert, oriented x3 and no apparent distress General Appearance: cooperative Exam Limitations: no limitations HEENT normocephalic, head/scalp atraumatic, hearing grossly normal bilaterally and moist oral mucous membranes Head and Scalp: normocephalic Eyes PERRL, EOMs intact bilaterally and conjunctivae normal Neck no lymphadenopathy and supple Resp normal respiratory effort, no retractions, no use of accessory muscles and clear to auscultation bilaterally Cardio regular rate, regular rhythm, S1 normal heart sound, S2 normal heart sound and no murmurs GI normal to inspection, nondistended, normoactive bowel sounds, soft to palpation, non-tender and non-distended Extremity normal to inspection, full ROM and no clubbing, cyanosis or edema Peripheral Pulses: Yes pulses 2+ throughout Skin no rashes or lesions noted Neuro oriented x3 and CN's II-XII intact bilaterally Sensorium / Orientation: awake and alert Psych affect normal Assessment & Plan Assessment/Plan (1) Brain TIA: (2) Choledocholithiasis: PLAN: #Syncope, concerning for TIA * CT of the brain showed no acute intracranial pathology. * MRI of the brain done; report pending * 2D echo. P.o. aspirin 81 mg daily. * Orthostatics were negative. PT OT consult. Fall precautions. * Hold off on giving statins for now on account of impaired liver enzymes. * #Hyperbilirubinemia * Bilirubin is elevated at 5.44. * Had CT of the abdomen done which showed dilated intrahepatic biliary ducts and common bile duct suggestive of possible choledocholithiasis in the distal portion of the common bile duct. Patient is s/p cholecystectomy. He also had a 3 cm x 1.6 cm heterogeneous nodule in the posterior medial segment of the left lower lobe of the lung. * Follows with gastroenterology. Per GI, will need ERCP while stroke has been ruled out. * #Hypertension: On amlodipine. DVT prophylaxis: SCDs. CODE STATUS: Full code * Charges/Coding Visit Charges Inpatient E&M: 82092 Subs Hosp L2
--- NOTE | 2021-05-14 15:40 | CASEMGMT ---
Social Work Consult: Discharge planning. Referral source: NICOLE AMBROSE This addiction social worker reviewed chart, patient appears to be from [facility]. This addiction social worker attempted to see patient in room. Patient sleeping and was not able to be woken by this addiction social worker. Per nursing staff patient was given Ativan in order to be able to complete MRI today. Telephone call to patient daughter, Yasmin. Introduced self and addiction social worker role. Yasmin agreeable to speak with this addiction social worker. This addiction social worker inquired if plan is for patient to return to [facility] at discharge. Yasmin reports that patient is under medicaid waiver for the assisted living at [facility] and plan would be for patient to return if patient is physically able to be managed at assisted living level. Therapy has not seen patient yet due to patient sleeping and having test. Yasmin aware that therapy has not assessed patient yet. Yasmin agreeable with patient returning to [facility] if patient is physically and medically cleared to do so over the weekend. Green Sheet placed on patient chart. PLAN: [facility] assisted living. Surinder BALLARD, AIYANA
--- NOTE | 2021-05-14 16:00 | CASEMGMT ---
NICOLE AMBROSE NOTE: Pt groggy at this time after being medicated for MRI. NICOLE AMBROSE spoke w/dtr, Yasmin, on the phone. MCDERMOTT form explained re: Observation status for treatment of syncope and elevated liver enzymes. Explained hospitalization will be paid per his insurance policy for Outpatient billing and condition will continue to be evaluated for Inpt necessity. Also let pt know that [facility] sends paper in the billing packet with their phone number if questions arise. Yasmin verbalizes understanding and does not have further questions. Form signed via telephone signature, copy made and placed in chart, and original placed in pt's room. Adelaide VIVAR RN, CM
[2021-05-15] VITALS (11 sets, daily range): BP systolic 113–138; BP diastolic 60–79; PULSE 58–89; RESP 16–18; TEMP 36.6–37; O2SAT 94–99
[2021-05-15 05:27] LABS: Absolute Lymphocyte Count 0.97 X10^3/uL (0.83-4.51); Absolute Neutrophil Count 5.4 X10^3/uL (2.0-7.7); Basophil% 1.3 % (0-1); Eosinophil# 0.63 X10^3/uL; Eosinophils% 8.3 % (0-5); Hematocrit 31.5 % (40-54); Hemoglobin 10.5 g/dL (13.0-16.5); Lymphocyte # 0.97 X10^3/ul (0.83-4.51); Lymphocyte % 12.7 % (19-41); Mean Corp Hgb Conc 33.3 g/dL (32-36); Mean Corpuscular Hgb 31.3 pg (27.0-32.0); Mean Platelet Vol. 9.3 fl (6.2-12.0); Monocyte# 0.45 X10^3/uL; Monocyte% 5.9 % (0-10); NRBC Flagged by Analyzer 0 % (0-5); Neutrophil # 5.43 X10^3/uL (2.7-7.7); Neutrophil % 71.4 % (47-70); Platelet Count 289 K/mm3 (150-450); RBC Distribution Width CV 13.8 % (11.6-14.6); RBC Distribution Width SD 47.5 fl (35.1-43.9); Red Blood Count 3.35 M/mm3 (4.6-6.2); White Blood Count 7.6 K/mm3 (4.4-11.0)
[2021-05-15] MEDS: hydrOXYzine 10 MG Tablet PO ×3 (05:40→20:43)
[2021-05-15] MEDS: 0.9% Normal Saline 1,000 ML 50 ML IV (05:43)
[2021-05-15 05:48] LABS: Anion Gap 2 (5-15); BUN 7 mg/dL (7-18); Calcium,Total 7.9 mg/dL (8.5-10.1); Chloride 108 mmol/L (98-107); EST Glomerular Filtration Rate 116 mL/min (>60); Est Glom Filt Rate - Afr Amer 141 mL/min (>60); Estimated Creatinine Clearance 64.89 ml/min; Glucose 92 mg/dL (74-106); Potassium 3.6 mmol/L (3.5-5.1); Sodium Level 139 mmol/L (136-145)
[2021-05-15] MEDS: Omega-3 Acid Ethyl Esters 1 GM Capsule PO ×2 (10:07→20:43)
[2021-05-15] MEDS: amLODIPine 5 MG Tablet PO (10:07)
[2021-05-15] MEDS: Aspirin 81 MG TAB.CHEW PO (10:07)
--- NOTE | 2021-05-15 11:33 | PN_ITS ---
Subjective Subjective Patient ate this morning without any problems. He is complaining of some right upper quadrant pain and mild nausea. Objective Data Objective Data Vital Signs: Vital Signs Temp Pulse Resp BP Pulse Ox 97.9 F 79 16 124/79 H 96 05/15/21 09:55 05/15/21 09:55 05/15/21 09:55 05/15/21 09:55 05/15/21 09:55 Oxygen Delivery Method Room Air Weight: 174 lb 8 oz Body Mass Index (BMI) 25.0 Intake & Output: Intake and Output for Last 24 Hours 05/13/21 05/14/21 05/15/21 23:59 23:59 23:59 Intake Total 480 / 780 1425 / 1425 1820 / 1820 Output Total 200 / 200 200 / 200 Balance 480 / 780 1225 / 1225 1620 / 1620 Lab / Micro Data Result Diagrams: 05/15/21 05:17 05/15/21 05:17 Labs: Laboratory Results - last 24 hr 05/15/21 05:17: WBC 7.6, RBC 3.35 L, Hgb 10.5 L, Hct 31.5 L, MCV 94.0, MCH 31.3, MCHC 33.3, RDW Std Deviation 47.5 H, RDW Coeff of [place] 13.8, Plt Count 289, MPV 9.3, Immature Gran % (Auto) 0.400, Neut % (Auto) 71.4 H, Lymph % (Auto) 12.7 L, [place] % (Auto) 5.9, Eos % (Auto) 8.3 H, Baso % (Auto) 1.3 H, Absolute Neuts (auto) 5.4, Absolute Lymphs (auto) 0.97, Nucleated RBC % 0 05/15/21 05:17: Sodium 139, Potassium 3.6, Chloride 108 H, Carbon Dioxide 29.0, Anion Gap 2 L, BUN 7, Creatinine 0.70, Estim Creat Clear Calc 64.89, Est GFR (MDRD) Af Amer 141, Est GFR (MDRD) Non-Af 116, BUN/Creatinine Ratio 10.0, Glucose 92, Calcium 7.9 L Radiography Diagnostic Testing: Radiology Impression Echocardiogram 05/14/21 05:55 Interpretation Summary The estimated ejection fraction is 55-60 %. Normal LV systolic function Negative Buble study No previous study to compare Ordering Physician: Natasha Arguelles Performed By: Christina Wesley, LUCÍACS, RVT Brain MRI 05/14/21 11:45 IMPRESSION: 1. No MRI evidence of acute or subacute ischemic infarct or acute intracranial abnormality. 2. Chronic white matter ischemic changes in both cerebral hemispheres. Electronically Signed: Oneil Rodríguez MD at 14:10 EDT , Physical Exam Const alert General Appearance: cooperative Orientation / Consciousness: oriented to person HEENT hearing grossly normal bilaterally Head and Scalp: normal to inspection Face and Sinus: face symmetric Nose: external nose normal Mouth: oral and palatal mucosa normal Eyes conjunctivae normal General Eye: normal appearance of both eyes Neck full ROM General: normal visual inspection Lymph Lymphatic: no lymphadenopathy noted Chest inspection of chest normal and palpation of chest normal Chest: symmetrical chest wall rise Resp normal respiratory effort Effort and Inspection: able to speak in complete sentences Cardio regular rate GI non-distended Percussion: normal to percussion Rectal Exam: deferred Neuro Speech: speech normal Gait (Neuro): normal gait Assessment & Plan Assessment/Plan (1) Choledocholithiasis: PLAN: Plan is for ERCP tomorrow. N.p.o. after midnight. I will start him on Levaquin 500 mg once a day. Charges/Coding Visit Charges Inpatient E&M: 01549 Subs Hosp L2
[2021-05-15] MEDS: levoFLOXacin IV 500 MG/100 ML BAG 100 MG IV (12:56)
--- NOTE | 2021-05-15 14:16 | PN.HOSP_ITS ---
Subjective Subjective Patient seen and examined. He has no active complaints today and felt well. He asked why he felt short of breath. He was not in respiratory distress at time I reivewed him, and was on room air and breathing comfortably. He then said he sometimes felt short of breath with walking. Review of systems is otherwise nega tive. Objective Data Objective Data Vital Signs: Vital Signs Temp Pulse Resp BP Pulse Ox 97.9 F 79 16 124/79 H 96 05/15/21 09:55 05/15/21 09:55 05/15/21 09:55 05/15/21 09:55 05/15/21 09:55 Oxygen Delivery Method Room Air Weight: 174 lb 8 oz Body Mass Index (BMI) 25.0 Intake & Output: Intake and Output for Last 24 Hours 05/13/21 05/14/21 05/15/21 23:59 23:59 23:59 Intake Total 480 / 780 1425 / 1425 1820 / 1820 Output Total 200 / 200 200 / 200 Balance 480 / 780 1225 / 1225 1620 / 1620 Lab / Micro Data Result Diagrams: 05/15/21 05:17 05/15/21 05:17 Labs: Laboratory Results - last 24 hr 05/15/21 05:17: WBC 7.6, RBC 3.35 L, Hgb 10.5 L, Hct 31.5 L, MCV 94.0, MCH 31.3, MCHC 33.3, RDW Std Deviation 47.5 H, RDW Coeff of Sekou 13.8, Plt Count 289, MPV 9.3, Immature Gran % (Auto) 0.400, Neut % (Auto) 71.4 H, Lymph % (Auto) 12.7 L, [place] % (Auto) 5.9, Eos % (Auto) 8.3 H, Baso % (Auto) 1.3 H, Absolute Neuts (auto) 5.4, Absolute Lymphs (auto) 0.97, Nucleated RBC % 0 05/15/21 05:17: Sodium 139, Potassium 3.6, Chloride 108 H, Carbon Dioxide 29.0, Anion Gap 2 L, BUN 7, Creatinine 0.70, Estim Creat Clear Calc 64.89, Est GFR (MDRD) Af Amer 141, Est GFR (MDRD) Non-Af 116, BUN/Creatinine Ratio 10.0, Glucose 92, Calcium 7.9 L Physical Exam Const alert, oriented x3 and no apparent distress General Appearance: cooperative Exam Limitations: no limitations HEENT normocephalic, head/scalp atraumatic, hearing grossly normal bilaterally and moist oral mucous membranes Head and Scalp: normocephalic Eyes PERRL, EOMs intact bilaterally and conjunctivae normal Neck no lymphadenopathy and supple Resp normal respiratory effort, no retractions, no use of accessory muscles and clear to auscultation bilaterally Cardio regular rate, regular rhythm, S1 normal heart sound, S2 normal heart sound and no murmurs GI normal to inspection, nondistended, normoactive bowel sounds, soft to palpation, non-tender and non-distended Extremity normal to inspection, full ROM and no clubbing, cyanosis or edema Peripheral Pulses: Yes pulses 2+ throughout Skin no rashes or lesions noted Skin Narrative: jaundiced skin Neuro oriented x3 and CN's II-XII intact bilaterally Sensorium / Orientation: awake and alert Psych affect normal Assessment & Plan Assessment/Plan (1) Brain TIA: (2) Choledocholithiasis: PLAN: #Syncope, concerning for TIA * CT of the brain showed no acute intracranial pathology. * MRI of the brain done was also negative. * 2D echo. P.o. aspirin 81 mg daily. * Orthostatics were negative. PT OT consult. Fall precautions. * Hold off on giving statins for now on account of impaired liver enzymes. * #Hyperbilirubinemia * Bilirubin was elevated * Had CT of the abdomen done which showed dilated intrahepatic biliary ducts and common bile duct suggestive of possible choledocholithiasis in the distal portion of the common bile duct. Patient is s/p cholecystectomy. He also had a 3 cm x 1.6 cm heterogeneous nodule in the posterior medial segment of the left lower lobe of the lung. * Follows with gastroenterology. * for ERCP tomorrow * GI on board * #Hypertension: On amlodipine. DVT prophylaxis: SCDs. CODE STATUS: Full code * Charges/Coding Visit Charges Inpatient E&M: 75744 Subs Hosp L2
[2021-05-16] VITALS (17 sets, daily range): BP systolic 105–137; BP diastolic 62–83; PULSE 53–80; RESP 16–18; TEMP 36.5–37.3; O2SAT 95–100; BMI 25.0
--- NOTE | 2021-05-16 00:58 | EKG12_ITS ---
Test Reason : PRE OP Blood Pressure : / mmHG Vent. Rate : 069 BPM Atrial Rate : 069 BPM P-R Int : 242 ms QRS Dur : 122 ms QT Int : 416 ms P-R-T Axes : 005 -68 004 degrees QTc Int : 445 ms Sinus rhythm with 1st degree A-V block Left axis deviation Abnormal ECG When compared with ECG of 13-MAY-2021 11:37, MANUAL COMPARISON REQUIRED, DATA IS UNCONFIRMED Confirmed by RAMILA MONROY, ROSMERY ([id number]), industrial editor KRISH FRITZ ([id number]) on 05/17/2021 11:12:00 AM Referred By: JOAQUIN Confirmed By:ROSMERY MCGRATH MD
[2021-05-16] MEDS: 0.9% Normal Saline 1,000 ML 50 ML IV ×2 (05:23→10:34)
[2021-05-16 05:44] LABS: Absolute Lymphocyte Count 1.02 X10^3/uL (0.83-4.51); Absolute Neutrophil Count 5.8 X10^3/uL (2.0-7.7); Basophil# 0.08 X10^3/uL; Eosinophil# 0.62 X10^3/uL; Eosinophils% 7.6 % (0-5); Hemoglobin 10.1 g/dL (13.0-16.5); Lymphocyte # 1.02 X10^3/ul (0.83-4.51); Lymphocyte % 12.6 % (19-41); Mean Corp Hgb Conc 32.6 g/dL (32-36); Mean Corpuscular Volume 95.1 fL (80-94); Mean Platelet Vol. 9.5 fl (6.2-12.0); Monocyte# 0.59 X10^3/uL; Monocyte% 7.3 % (0-10); NRBC Flagged by Analyzer 0 % (0-5); Neutrophil # 5.75 X10^3/uL (2.7-7.7); Neutrophil % 70.9 % (47-70); Platelet Count 290 K/mm3 (150-450); RBC Distribution Width CV 13.8 % (11.6-14.6); RBC Distribution Width SD 48.2 fl (35.1-43.9); Red Blood Count 3.26 M/mm3 (4.6-6.2); White Blood Count 8.1 K/mm3 (4.4-11.0)
[2021-05-16 06:26] LABS: Anion Gap 4 (5-15); BUN 9 mg/dL (7-18); BUN/Creat Ratio 12.6 RATIO (10-20); Calcium,Total 8.2 mg/dL (8.5-10.1); Chloride 110 mmol/L (98-107); Creatinine, Serum 0.72 mg/dL (0.70-1.30); EST Glomerular Filtration Rate 113 mL/min (>60); Est Glom Filt Rate - Afr Amer 137 mL/min (>60); Estimated Creatinine Clearance 64.89 ml/min; Glucose 98 mg/dL (74-106); Potassium 3.6 mmol/L (3.5-5.1); Sodium Level 138 mmol/L (136-145)
--- NOTE | 2021-05-16 09:45 | RAD_ITS ---
STUDY: ERCP. REASON FOR EXAM: Male, 75 years old. ABD PAIN FLUOROSCOPY TIME (if supplied): ( 1 minute and 53 seconds ) minutes/seconds. 7 intraoperative images were obtained. TECHNIQUE: An ERCP was performed by the pediatric np. Imaging was provided. COMPARISON: None. FINDINGS: There is evidence of a dilated common bile duct as well as the central intrahepatic biliary ducts. Multiple filling defects are seen in the common bile duct. The patient is status post cholecystectomy. There was successful removal of the choledocholithiasis with placement of the stent. RAD/ERCP Biliary/Pancreas IMPRESSION: Dilated intra and extra hepatic biliary ducts with the stones in the common bile duct. Successful removal with placement of a biliary stent. Electronically Signed: Kong Nieves MD at 13:41 EDT ,
--- NOTE | 2021-05-16 10:19 | OP.ERCP_ITS ---
Patient Name: Kris Mcgill Procedure Date: 05/16/2021 9:06 AM Date of : 1945 Age: 75 Procedure: ERCP Indications: Bile duct stone(s), Jaundice Providers: Chay Cornelius DO Patient Profile: This is a 75 year old male. Refer to note in patient chart for documentation of history and physical. Patient has symptoms. Complications: No immediate complications. Procedure: Pre-Anesthesia Assessment: - Prior to the procedure, a History and Physical was performed, and patient medications and allergies were reviewed. The patient is competent. The risks and benefits of the procedure and the sedation options and risks were discussed with the patient. All questions were answered and informed consent was obtained. Patient identification and proposed procedure were verified by the physician in the pre-procedure area. Mental Status Examination: alert and oriented. Airway Examination: normal oropharyngeal airway and neck mobility. Respiratory Examination: clear to auscultation. CV Examination: normal. Prophylactic Antibiotics: The patient does not require prophylactic antibiotics. Prior Anticoagulants: The patient has taken no previous anticoagulant or antiplatelet agents. ASA Grade Assessment: II - A patient with mild systemic disease. After reviewing the risks and benefits, the patient was deemed in satisfactory condition to undergo the procedure. The anesthesia plan was to use moderate sedation / analgesia (conscious sedation). Immediately prior to administration of medications, the patient was re-assessed for adequacy to receive sedatives. The heart rate, respiratory rate, oxygen saturations, blood pressure, adequacy of pulmonary ventilation, and response to care were monitored throughout the procedure. The physical status of the patient was re-assessed after the procedure. After obtaining informed consent, the scope was passed under direct vision. Throughout the procedure, the patient's blood pressure, pulse, and oxygen saturations were monitored continuously. The [id number] endoscope was introduced through the mouth, and advanced to the duodenum and used to inject contrast into the bile duct. The ERCP was accomplished without difficulty. The patient tolerated the procedure well. Moderate Sedation: Moderate (conscious) sedation was administered by the endoscopy nurse and supervised by the endoscopist. The patient's oxygen saturation, heart rate, blood pressure and response to care were monitored. Total physician intraservice time was 15 minutes. Scope In: 9:48:53 AM Scope Out: 10:08:23 AM Total Procedure Duration Time 0 hours 19 minutes 30 seconds Findings: The tar chaser film was normal. The esophagus was successfully intubated under direct vision. The scope was advanced to a normal major papilla in the descending duodenum without detailed examination of the pharynx, larynx and associated structures, and upper GI tract. The upper GI tract was grossly normal. The bile duct was deeply cannulated. Contrast was injected. Opacification of the main bile duct was successful. The maximum diameter of the ducts was 8 mm. The upper third of the main bile duct contained three stones, the largest of which was 10 mm in diameter. The entire biliary tree except for the cystic duct and gallbladder and main bile duct were diffusely dilated, with a stone causing an obstruction. The largest diameter was 20 mm. A cholecystectomy had been performed. A straight Roadrunner wire was passed into the biliary tree. A 5 mm biliary sphincterotomy was made with a traction (standard) sphincterotome using ERBE electrocautery. Moderate bleeding from the sphincterotomy stopped within 5 minutes. The biliary tree was swept with a 15 mm balloon starting at the bifurcation. Sludge was swept from the duct. All stones were removed. One 10 Fr by 9 cm transpapillary temporary stent was placed 5 cm into the left hepatic duct. Bile flowed through the stent. The stent was in good position. Impression: - The entire main bile duct was dilated, with a stone causing an obstruction. - The patient has had a cholecystectomy. - Choledocholithiasis was found. Complete removal was accomplished by biliary sphincterotomy and balloon extraction. - A biliary sphincterotomy was performed. - The biliary tree was swept. Procedure Code(s): --- Professional --- 61132, Endoscopic retrograde cholangiopancreatography (ERCP); with placement of endoscopic stent into biliary or pancreatic duct, including pre- and post-dilation and guide wire passage, when performed, including sphincterotomy, when performed, each stent [id number], Endoscopic retrograde cholangiopancreatography (ERCP); with removal of calculi/debris from biliary/pancreatic duct(s) 01754, 59, Endoscopic retrograde cholangiopancreatography (ERCP); with sphincterotomy/papillotomy G0500, Moderate sedation services provided by the same physician or other qualified health home care nurse performing a gastrointestinal endoscopic service that sedation supports, requiring the presence of an independent trained observer to assist in the monitoring of the patient's level of consciousness and physiological status; initial 15 minutes of intra-service time; patient age 5 years or older (additional time may be reported with 05677, as appropriate) CPT copyright 2017 [employer]. All rights reserved. The codes documented in this report are preliminary and upon insurance coder review may be revised to meet current compliance requirements. Chay Cornelius DO 05/16/2021 10:19:16 AM This report has been signed electronically. Number of Addenda: 0 Note Initiated On: 05/16/2021 9:06 AM
--- NOTE | 2021-05-16 10:20 | OP.CCLET_ITS ---
05/16/2021 No Primary Care Physician Re : ERCP procedure for Kris Mcgill [facility] Physician This procedure was performed on Sunday, May 16, 2021. My impressions and recommendations are as follows: Impressions : - The entire main bile duct was dilated, with a stone causing an obstruction. - The patient has had a cholecystectomy. - Choledocholithiasis was found. Complete removal was accomplished by biliary sphincterotomy and balloon extraction. - A biliary sphincterotomy was performed. - The biliary tree was swept. Recommendations : My findings are described in the full procedure note, which is enclosed. If I can be of further assistance, please feel free to contact me at . Sincerely, Chay Cornelius DO 05/16/2021 10:19:16 AM This report has been signed electronically.
--- NOTE | 2021-05-16 11:40 | CASEMGMT ---
ROBERTA faxed updates to [facility]. ROBERTA will fax PT/OT evaluations once completed. Shira Javier ONLINE COMMUNICATIONS MANAGER [employer]ER
[2021-05-16] MEDS: Aspirin 81 MG TAB.CHEW PO (13:38)
[2021-05-16] MEDS: Omega-3 Acid Ethyl Esters 1 GM Capsule PO ×2 (13:39→20:14)
[2021-05-16] MEDS: levoFLOXacin IV 500 MG/100 ML BAG 100 MG IV (13:39)
[2021-05-16] MEDS: amLODIPine 5 MG Tablet PO (13:39)
[2021-05-16] MEDS: Ergocalciferol 1.25 MG (50, 000 UNIT) Capsule PO (13:39)
[2021-05-16] MEDS: hydrOXYzine 10 MG Tablet PO ×2 (13:39→20:13)
--- NOTE | 2021-05-16 15:19 | PN.HOSP_ITS ---
Subjective Subjective s/p ERCP. No current abdominal pain. Objective Data Objective Data Vital Signs: Vital Signs Temp Pulse Resp BP Pulse Ox 36.6 C 76 16 122/75 H 100 05/16/21 14:52 05/16/21 14:52 05/16/21 14:52 05/16/21 14:52 05/16/21 14:52 Oxygen Delivery Method Room Air Weight: 79.2 kg Body Mass Index (BMI) 25.0 Intake & Output: Intake and Output for Last 24 Hours 05/14/21 05/15/21 05/16/21 23:59 23:59 23:59 Intake Total 1425 / 1425 1920 / 2460 1899.17 / 1899.17 Output Total 200 / 200 200 / 200 Balance 1225 / 1225 1720 / 2260 1899.17 / 1899.17 Lab / Micro Data Result Diagrams: 05/16/21 05:20 05/16/21 05:20 Labs: Laboratory Results - last 24 hr 05/16/21 05:20: WBC 8.1, RBC 3.26 L, Hgb 10.1 L, Hct 31.0 L, MCV 95.1 H, MCH 31.0, MCHC 32.6, RDW Std Deviation 48.2 H, RDW Coeff of Sekou 13.8, Plt Count 290, MPV 9.5, Immature Gran % (Auto) 0.600, Neut % (Auto) 70.9 H, Lymph % (Auto) 12.6 L, [place] % (Auto) 7.3, Eos % (Auto) 7.6 H, Baso % (Auto) 1.0, Absolute Neuts (auto) 5.8, Absolute Lymphs (auto) 1.02, Nucleated RBC % 0 05/16/21 05:20: Sodium 138, Potassium 3.6, Chloride 110 H, Carbon Dioxide 24.0, Anion Gap 4 L, BUN 9, Creatinine 0.72, Estim Creat Clear Calc 64.89, Est GFR (MDRD) Af Amer 137, Est GFR (MDRD) Non-Af 113, BUN/Creatinine Ratio 12.6, Glucose 98, Calcium 8.2 L Micro: Microbiology 05/16/21 08:15 Nasal Secretion SARS-CoV-2 Antigen (Rapid) - Final Radiography Diagnostic Testing: Radiology Impression Endo Retro Cholangiopancreatogram 05/16/21 09:45 IMPRESSION: Dilated intra and extra hepatic biliary ducts with the stones in the common bile duct. Successful removal with placement of a biliary stent. Electronically Signed: Kong Nieves MD at 13:41 EDT , Physical Exam Const alert and no apparent distress Resp normal respiratory effort, no retractions, no use of accessory muscles and clear to auscultation bilaterally Cardio regular rate, regular rhythm, S1 normal heart sound and S2 normal heart sound GI normal to inspection, nondistended, normoactive bowel sounds, soft to palpation, non-tender and non-distended; Negative for hepatosplenomegaly Extremity normal to inspection Assessment & Plan Assessment/Plan (1) Brain TIA: (2) Choledocholithiasis: PLAN: 1. Syncope, * TIA/CVA ruled out * suspect vasovagal * CT of the brain showed no acute intracranial pathology. * MRI of the brain done was also negative. * 2D echo. P.o. aspirin 81 mg daily. * Orthostatics were negative. PT OT consult. Fall precautions. * Hold off on giving statins for now on account of impaired liver enzymes. 2. choledocholithiasis * ERCP performed 05/16 with sphincterotomy and balloon extraction * s/p cholecystectomy 3. Lung nodule * incidental finding * 3x1.6cm LLL * h/o lung cancer that was managed at [facility] * he will need Bx (if amenable) as outpt, 4. Hypertension: On amlodipine. 5. DVT prophylaxis: SCDs. 6. CODE STATUS: Full code 7. Disposition: plan for return to [facility] when medically ready. Discussed with the patient's daughter over the phone. She excess 6 extensively about this being likely a vasovagal event regards to him passing out. No evidence of a stroke and being that he came to quickly rules out a seizure in particular since he is never had seizures before. Explained to her in detail what syncope is and how people can develop syncope. Did discuss the choledocholithiasis that he had and that he had the stone removed today. Also discussed his lung nodule that that would need further follow-up but he would not have any biopsy performed while he was in the hospital as it was incidental finding while here in the hospital. But this will certainly warrant follow-up. He previously been seeing physicians at [facility] but now lives in this area and would likely be following up with the [facility] physicians. Will need to arrange outpatient biopsy. Greater than 40 minutes of which greater than 50% of time was evaluating the patient, reviewing the data as well as discussing with the patient's daughter over the phone. Charges/Coding Visit Charges Inpatient E&M: 02848 [facility] Hosp L3
--- NOTE | 2021-05-16 20:37 | NURSING ---
pt disconnected from IV fluid to wash up. pt refused IV fluids at this time.
[2021-05-17] VITALS (7 sets, daily range): BP systolic 132–155; BP diastolic 72–77; PULSE 62–79; RESP 15–18; TEMP 36.2–36.6; O2SAT 95–97; BMI 25.0
[2021-05-17 06:42] LABS: Absolute Neutrophil Count 10.7 X10^3/uL (2.0-7.7); Basophil# 0.07 X10^3/uL; Basophil% 0.6 % (0-1); Eosinophil# 0.22 X10^3/uL; Eosinophils% 1.8 % (0-5); Hematocrit 36.5 % (40-54); Hemoglobin 12.2 g/dL (13.0-16.5); Lymphocyte % 5.6 % (19-41); Mean Corp Hgb Conc 33.4 g/dL (32-36); Mean Corpuscular Hgb 31.4 pg (27.0-32.0); Mean Corpuscular Volume 94.1 fL (80-94); Mean Platelet Vol. 9.4 fl (6.2-12.0); Monocyte# 0.69 X10^3/uL; Monocyte% 5.5 % (0-10); NRBC Flagged by Analyzer 0 % (0-5); Neutrophil # 10.72 X10^3/uL (2.7-7.7); Neutrophil % 85.9 % (47-70); Platelet Count 390 K/mm3 (150-450); RBC Distribution Width CV 13.6 % (11.6-14.6); Red Blood Count 3.88 M/mm3 (4.6-6.2); White Blood Count 12.5 K/mm3 (4.4-11.0)
[2021-05-17] MEDS: hydrOXYzine 10 MG Tablet PO (06:48)
[2021-05-17 07:08] LABS: ALB/GLOB Ratio 0.4 RATIO (0.9-2.4); AST(SGOT) 49 U/L (15-37); Alanine Aminotransfer ALT/SGPT 24 U/L (16-61); Albumin, Serum 2.2 g/dL (3.2-5.0); Alkaline Phosphatase 326 U/L (45-117); Anion Gap 7 (5-15); BUN 9 mg/dL (7-18); BUN/Creat Ratio 12.4 RATIO (10-20); Chloride 108 mmol/L (98-107); Creatinine, Serum 0.72 mg/dL (0.70-1.30); EST Glomerular Filtration Rate 112 mL/min (>60); Est Glom Filt Rate - Afr Amer 135 mL/min (>60); Estimated Creatinine Clearance 64.89 ml/min; Globulin 4.9 g/dL (2.2-4.2); Glucose 136 mg/dL (74-106); Potassium 3.6 mmol/L (3.5-5.1); Protein, Total 7.1 g/dL (6.4-8.2); Sodium Level 137 mmol/L (136-145)
[2021-05-17] MEDS: levoFLOXacin IV 500 MG/100 ML BAG 100 MG IV (08:38)
[2021-05-17] MEDS: Aspirin 81 MG TAB.CHEW PO (09:58)
[2021-05-17] MEDS: amLODIPine 5 MG Tablet PO (09:58)
[2021-05-17] MEDS: Omega-3 Acid Ethyl Esters 1 GM Capsule PO (09:58)
--- NOTE | 2021-05-17 10:09 | NURSING ---
patient refused vitals and meds to be given at 0840, this RN stated I will be back in at 1000 to obtain vitals and give meds. Patient in agreeance. This RN and speech therapy at bedside at 1000, pt refusing speech therapy, refusing breakfast. Able to obtain vitals and give meds, LFA IV infiltrated and D/C'd, pt refusing another IV attempt, pt stated I am supposed to be leaving today, I am going back to sleep, just leave my room. Re made aware.
--- NOTE | 2021-05-17 13:34 | CASEMGMT ---
ROBERTA spoke with Nahed at [facility] and let her know patient may be returning today. ROBERTA told Nahed patient is refusing therapy. ROBERTA faxed clinicals to Nahed. Nahed called ROBERTA back and said patient can return to [facility] when ready. Shira Javier MSW RORY
--- NOTE | 2021-05-17 14:24 | PCM.DC ---
Discharge Instructions Diet Discharge Diet: No restrictions Activity Discharge Activity: Return to Normal Activity Dressing / Incision Call your doctor if you observe: - (abdominal pain) Follow Up Care Test Results: Test results from this visit will be discussed in further detail at your follow-up appointment, if applicable. Discharge Plan Admission Admit Date/Time: 05/14/21 17:55 Primary Reason for Your Visit: choledocholithiasis Attending Provider: Ramesh Grimaldo Primary Care Provider: Care Physician,No Primary Discharge Orders/Prescriptions Prescriptions: Continued omega-3 fatty acids 1,000 mg capsule 1,000 mg PO BID RF: 0 amlodipine 5 mg tablet 5 mg PO DAILY RF: 0 hydroxyzine HCl 10 mg Tablet 10 mg PO TID RF: 0 cholecalciferol (vitamin D3) 1,250 mcg (50,000 unit) Capsule 1,250 mcg PO MO RF: 0 cyanocobalamin (vitamin B-12) 1,000 mcg/mL solution 1,000 mcg IM QMONTH RF: 0 Referrals / Follow Up: Chay Cornelius DO [STAFF PHYSICIAN] - Care Physician,No Primary [Primary Care Provider] - Disposition Disposition (needs filled in before D/C Order can be placed): Home, Self Care
--- NOTE | 2021-05-17 14:34 | PCM.DC.SUM ---
Providers Date of Admission: 05/14/21 Primary Care Physician: No Primary Care Phys Reason For Visit: SYNCOPE, ELEVATED LIVER ENZYMES Diagnosis Discharge Diagnosis (1) Brain TIA: Status: Ruled-out Code(s): G45.9 - Transient cerebral ischemic attack, unspecified (2) Choledocholithiasis: Status: Acute Code(s): K80.50 - Calculus of bile duct without cholangitis or cholecystitis without obstruction Medications at Discharge Home Medications amlodipine 5 mg tablet 5 mg PO DAILY 05/11/21 omega-3 fatty acids 1,000 mg capsule 1,000 mg PO BID 05/11/21 cholecalciferol (vitamin D3) 1,250 mcg PO MO 05/13/21 cyanocobalamin (vitamin B-12) 1,000 mcg IM QMONTH 05/13/21 hydroxyzine HCl 10 mg PO TID 05/13/21 Hospital Course Operations None Procedures - (ERCP) Summary of Care Provided Minutes Spent on Discharge: 32 Hospital Course: 1. Syncope, TIA/CVA ruled out suspect vasovagal CT of the brain showed no acute intracranial pathology. MRI of the brain done was also negative. 2D echo. P.o. aspirin 81 mg daily. Orthostatics were negative. PT OT consult. Fall precautions. Hold off on giving statins for now on account of impaired liver enzymes. 2. choledocholithiasis ERCP performed 05/16 with sphincterotomy and balloon extraction s/p cholecystectomy follow up with GI 3. Lung nodule incidental finding 3x1.6cm LLL h/o lung cancer that was managed at [facility] he will need Bx (if amenable) as outpt, follow up with pulmonology 05/17: Discussed with the patient's daughter over the phone. She excess 6 extensively about this being likely a vasovagal event regards to him passing out. No evidence of a stroke and being that he came to quickly rules out a seizure in particular since he is never had seizures before. Explained to her in detail what syncope is and how people can develop syncope. Did discuss the choledocholithiasis that he had and that he had the stone removed today. Also discussed his lung nodule that that would need further follow-up but he would not have any biopsy performed while he was in the hospital as it was incidental finding while here in the hospital. But this will certainly warrant follow-up. He previously been seeing physicians at [facility] but now lives in this area and would likely be following up with the [facility] physicians. Will need to arrange outpatient biopsy. Physical Exam Const alert and no apparent distress Resp normal respiratory effort, no retractions, no use of accessory muscles and clear to auscultation bilaterally Cardio regular rate, regular rhythm, S1 normal heart sound and S2 normal heart sound GI normal to inspection, nondistended, normoactive bowel sounds, soft to palpation, non-tender and non-distended Extremity normal to inspection and full ROM Weight / BMI Weight Weight: 79.2 kg Body Mass Index (BMI) 25.0 ABG / Lab / Microbiology Data Result Diagrams: 05/17/21 06:12 05/17/21 06:12 Laboratory: Laboratory Results - last 24 hr 05/17/21 06:12: WBC 12.5 H, RBC 3.88 L, Hgb 12.2 L, Hct 36.5 L, MCV 94.1 H, MCH 31.4, MCHC 33.4, RDW Std Deviation 47.0 H, RDW Coeff of Sekou 13.6, Plt Count 390, MPV 9.4, Immature Gran % (Auto) 0.600, Neut % (Auto) 85.9 H, Lymph % (Auto) 5.6 L, [place] % (Auto) 5.5, Eos % (Auto) 1.8, Baso % (Auto) 0.6, Absolute Neuts (auto) 10.7 H, Absolute Lymphs (auto) 0.70 L, Nucleated RBC % 0 05/17/21 06:12: Sodium 137, Potassium 3.6, Chloride 108 H, Carbon Dioxide 22.0, Anion Gap 7, BUN 9, Creatinine 0.72, Estim Creat Clear Calc 64.89, Est GFR (MDRD) Af Amer 135, Est GFR (MDRD) Non-Af 112, BUN/Creatinine Ratio 12.4, Glucose 136 H, Calcium 9.0, Total Bilirubin 4.30 H, AST 49 H, ALT 24, Alkaline Phosphatase 326 H, Total Protein 7.1, Albumin 2.2 L, Globulin 4.9 H, Albumin/Globulin Ratio 0.4 L Microbiology: Microbiology 05/16/21 08:15 Nasal Secretion SARS-CoV-2 Antigen (Rapid) - Final D/C Instructions Discharge Diet: No restrictions Call your doctor if you observe: - (abdominal pain) Meaningful Use Info Meaningful Use Diagnoses (Choose all that apply): None applicable Discharge Plan Admission Admit Date/Time: 05/14/21 17:55 Primary Reason for Your Visit: choledocholithiasis Attending Provider: Ramesh Grimaldo Primary Care Provider: Care Physician,No Primary Discharge Orders/Prescriptions Prescriptions: Continued omega-3 fatty acids 1,000 mg capsule 1,000 mg PO BID RF: 0 amlodipine 5 mg tablet 5 mg PO DAILY RF: 0 hydroxyzine HCl 10 mg Tablet 10 mg PO TID RF: 0 cholecalciferol (vitamin D3) 1,250 mcg (50,000 unit) Capsule 1,250 mcg PO MO RF: 0 cyanocobalamin (vitamin B-12) 1,000 mcg/mL solution 1,000 mcg IM QMONTH RF: 0 Referrals / Follow Up: Chay Cornelius DO [STAFF PHYSICIAN] - Care Physician,No Primary [Primary Care Provider] - Ishan Rutherford MD [STAFF PHYSICIAN] - Within 1 Month (Pulmonary nodule) Disposition Disposition (needs filled in before D/C Order can be placed): Home, Self Care Charges/Coding Visit Charges Inpatient E&M: 49319 Disch Hosp
--- NOTE | 2021-05-17 15:52 | CASEMGMT ---
ROBERTA called [facility] and notified them patient will be returning today. [facility] RN told SW patient will have to go with a catheter. ROBERTA called [facility] back and spoke with Ruthy one of the nurses asking if it is okay for patient to return with a catheter. Ruthy said he will have to manage it himself. [facility] RN thinks this would be okay. ROBERTA let Ruthy know patient will come with a catheter and his daughter will pick him up around 5/6. Shira Javier DIVINITY PROFESSOR RORY
--- NOTE | 2021-05-17 15:53 | PCM.PROGNOTE ---
Subjective Subjective Patient underwent ERCP yesterday with stone removal. He is not have any abdominal pain is tolerating a diet. Objective Data Objective Data Vital Signs: Vital Signs Temp Pulse Resp BP Pulse Ox 97.2 F L 66 15 138/72 H 96 05/17/21 10:00 05/17/21 15:06 05/17/21 10:00 05/17/21 10:00 05/17/21 10:00 Oxygen Delivery Method Room Air Weight: 174 lb 9.698 oz Body Mass Index (BMI) 25.0 Intake & Output: Intake and Output for Last 24 Hours 05/15/21 05/16/21 05/17/21 23:59 23:59 23:59 Intake Total 1920 / 2460 2740.00 / 2740.00 915.84 / 915.84 Output Total 200 / 200 1200 / 1200 Balance 1720 / 2260 2740.00 / 2740.00 -284.16 / -284.16 Lab / Micro Data Result Diagrams: 05/17/21 06:12 05/17/21 06:12 Labs: Laboratory Results - last 24 hr 05/17/21 06:12: WBC 12.5 H, RBC 3.88 L, Hgb 12.2 L, Hct 36.5 L, MCV 94.1 H, MCH 31.4, MCHC 33.4, RDW Std Deviation 47.0 H, RDW Coeff of Sekou 13.6, Plt Count 390, MPV 9.4, Immature Gran % (Auto) 0.600, Neut % (Auto) 85.9 H, Lymph % (Auto) 5.6 L, [place] % (Auto) 5.5, Eos % (Auto) 1.8, Baso % (Auto) 0.6, Absolute Neuts (auto) 10.7 H, Absolute Lymphs (auto) 0.70 L, Nucleated RBC % 0 05/17/21 06:12: Sodium 137, Potassium 3.6, Chloride 108 H, Carbon Dioxide 22.0, Anion Gap 7, BUN 9, Creatinine 0.72, Estim Creat Clear Calc 64.89, Est GFR (MDRD) Af Amer 135, Est GFR (MDRD) Non-Af 112, BUN/Creatinine Ratio 12.4, Glucose 136 H, Calcium 9.0, Total Bilirubin 4.30 H, AST 49 H, ALT 24, Alkaline Phosphatase 326 H, Total Protein 7.1, Albumin 2.2 L, Globulin 4.9 H, Albumin/Globulin Ratio 0.4 L Micro: Microbiology 05/16/21 08:15 Nasal Secretion SARS-CoV-2 Antigen (Rapid) - Final Physical Exam Const alert General Appearance: cooperative Orientation / Consciousness: oriented to person HEENT hearing grossly normal bilaterally Head and Scalp: normal to inspection Face and Sinus: face symmetric Nose: external nose normal Mouth: oral and palatal mucosa normal Eyes conjunctivae normal General Eye: normal appearance of both eyes Neck full ROM General: normal visual inspection Lymph Lymphatic: no lymphadenopathy noted Chest inspection of chest normal and palpation of chest normal Chest: symmetrical chest wall rise Resp normal respiratory effort Effort and Inspection: able to speak in complete sentences Cardio regular rate GI non-distended Percussion: normal to percussion Rectal Exam: deferred Neuro Speech: speech normal Gait (Neuro): normal gait Assessment & Plan Assessment/Plan (1) Choledocholithiasis: PLAN: Patient is status post day 1 from ERCP with stone removal and stent placement. His labs are improving except for his white blood cell count that is mildly elevated. I suspect it is reactive however I will give him a course of antibiotics to take at home for the next 7 days. He is instructed to follow-up in the office and get repeat blood work in 5 days. Charges/Coding Visit Charges Inpatient E&M: 10648 Subs Hosp L2
--- NOTE | 2021-05-17 16:09 | CASEMGMT ---
SW faxed updated d/c instructions to Chavo Poe [employer]NA[employer] [facility]
--- NOTE | 2021-05-17 17:47 | NURSING ---
Villasenor catheter was inserted, patient requesting leg bag- instructed and demonstrated changing leg bag and villasenor bag, educated on cleaning and emptying bags, educated on new medication- flomax, and need for follow-up appt with Amy in 2 weeks. Also reviewed all discharge plan and educated on the above to daughter, Yasmin.
== END 2021-05-17 18:37 | disposition home or self-care (01) | DRG 446 ==
LOC: ED 15:11 → PCU 15:33
PROVIDERS: Internal Medicine Gastroenterology; Admitting Provider Student in an Organized Health Care Education/Training Program; Emergency Provider Emergency Medicine
PROC: 0FC98ZZ Extirpation of Matter from Common Bile Duct, Via Natural or Artificial Opening Endoscopic (ICD-10-PCS; CPT 43260; principal; 2021-05-16 09:00)
DX: K80.50 Calculus of bile duct without cholangitis or cholecystitis without obstruction (principal); E78.2 Mixed hyperlipidemia; K76.0 Fatty (change of) liver, not elsewhere classified; I12.9 Hypertensive chronic kidney disease with stage 1 through stage 4 chronic kidney disease, or unspecified chronic kidney disease; K83.8 Other specified diseases of biliary tract; I25.10 Atherosclerotic heart disease of native coronary artery without angina pectoris; N18.2 Chronic kidney disease, stage 2 (mild); R55 Syncope and collapse; Z90.49 Acquired absence of other specified parts of digestive tract; R91.8 Other nonspecific abnormal finding of lung field
CPT/HCPCS: 36415; 70450; 70551; 71045; 71260; 74177; 74330; 80048; 80053; 80061; 80076; 81001; 82105; 82140; 82164; 82390; 82784; 82785; 83516; 83605; 83615; 84484; 85025; 85379; 85610; 85652; 85730; 86140; 86225; 86235; 86255; 86301; 87426; 92523; 92526; 92610; 93005; 93306; 94762; 97110; 97162; 97166; 99285; J7030; Q9967; A4216

== ENCOUNTER 2021-09-07 08:01 | Day surgery (SDC) | payer MEDICARE, MEDICAID, SELFPAY ==
[2021-09-07] VITALS (7 sets, daily range): BP systolic 129–168; BP diastolic 64–71; PULSE 50–61; RESP 16; TEMP 36.9–37.6; O2SAT 95–99; BMI 27.8
[2021-09-07] MEDS: Lactated Ringers 1,000 ML 15 ML IV (08:20)
--- NOTE | 2021-09-07 10:10 | RAD_ITS ---
STUDY: ERCP REASON FOR EXAM: Male, 75 years old. STENT REMOVAL FLUOROSCOPY TIME (if supplied): ( 2 minutes and 6 seconds ) minutes/seconds. 7 images were submitted. TECHNIQUE: An ERCP was performed by the musical performer. Imaging was provided. COMPARISON: Comparison is made with prior study dated 05/17/2019. FINDINGS: Persistent dilated common bile duct. Multiple residual intraluminal filling defects are seen within the common bile duct. RAD/ERCP Biliary Only IMPRESSION: Dilated common bile duct. Persistent intraluminal filling defects within the common bile. Electronically Signed: Kong Nieves MD at 13:34 EDT ,
--- NOTE | 2021-09-07 11:00 | PCM.HP.BLA ---
History and Physical Date of Admission: 09/07/21 JERRICA ARGUETA, is a 75 M who presented to the office today for Initial consultation for fatty liver disease. He is a resident of [facility]. He was noted to be jaundice during his admission with daughter reporting that he was previously diagnosed with fatty liver during hospitalization with [facility]. He was admitted to [facility] 11.4.21 for in acute rhabdomyolysis without renal failure as a result of being on the ground for approximately three days secondary to weakness and fever. He was also found to have MRSA in his blood likely secondary to severe BLE cellulitis infection r/t scratching and bedbug infection and a complicated UTI. Reports SOB with exertion since discharge. 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 He presents here for evaluation of an fatty liver.? His daughter who is with him has noticed he become more yellow.? He denies any history of alcohol abuse or even usage in the past.? He has no previous history of hepatitis C.? He has no tattoos.? He has not received any blood transfusions.? As previously ordered, she thinks that his father of liver disease that was likely from alcoholism.? He has been complaining of some itching on his extremities.? He does not sleep very well.? Says he usually falls asleep around 1:00 in the morning and wakes up in the afternoon the next day.? He knows who the president is at this time.? He knows what year it is at this time.? He knows his name and his date of .? He denies any history of ascites or GI bleeding. We will send him from the clinic over for biochemical evaluation. Patient was getting labs drawn when he became unresponsive.? Family was with him and noted that he was unable to speak.? Family noted the patient was drooling from his mouth as well.? Patient was brought to the emergency department.? Currently, patient is able to speak.? Patient is able to handle secretions.? Patient is confused still.? Patient denies any pain or headaches. His initial CT is pending to see if he had an acute stroke.? His biochemical profile did show elevated liver enzymes consistent with cholestatic hepatitis and jaundice.? His CT scan of the chest abdomen pelvis had shown a suspicious mass in his lungs and multiple stones in his common bile duct. [facility] Medical History?(Updated 05/13/21 @ 16:11 by Estella Simeon) Atherosclerotic heart disease of douglas coronary artery without angina pectoris BMI 29.0-29.9,adult Chronic kidney disease, stage 2 (mild) Exertional dyspnea Fatty liver Generalized pruritus Hypertension Hypokalemia Low vitamin B12 level Lymphoma Mixed hyperlipidemia Stroke/cerebrovascular accident Home Medications amlodipine 5 mg tablet 5 mg PO DAILY 05/11/21 [History Last Taken 05/13/21] omega-3 fatty acids 1,000 mg capsule 1,000 mg PO BID 05/11/21 [History Last Taken 05/13/21] cholecalciferol (vitamin D3) 1,250 mcg PO MO 05/13/21 [History Last Taken 05/09/21] cyanocobalamin (vitamin B-12) 1,000 mcg IM QMONTH 05/13/21 [History Last Taken 04/28/21] hydroxyzine HCl 10 mg PO TID 05/13/21 [History Last Taken 05/13/21] Allergy/AdvReac Type Severity Reaction Status Date / Time allopurinol Allergy Intermediate UNK Verified 05/13/21 11:28 Family History?(Updated 05/11/21 @ 09:41 by Henny Fried) Father?? Emphysema of lungMother?? Cancer Surgical History? History of cholecystectomy Social History? Smoking Status:? Never smoker alcohol intake:? never substance use type:? does not use ROS Review of Systems ROS Unobtainable: other Constitutional Constitutional: Denies fatigue, fever(s), poor appetite, weight gain or weight loss ENT HEENT: Denies mouth lesions Cardiovascular Cardiovascular: Denies abdominal bloating, abdominal edema or abdominal pain Respiratory/Chest Respiratory/Chest: Denies change in mental status, change in phlegm color, chest congestion or chest tightness Gastrointestinal Gastrointestinal: Denies belching, bloating, change in bowel habits, change in stool character, chewing difficulty, coffee ground emesis, constipation, cramping, diarrhea, dyspepsia, dysphagia, early satiety, excessive flatus, fecal incontinence, heartburn, hematemesis, hematochezia, hemorrhoids, loose stools, melena, nausea, odynophagia, rectal bleeding, tenesmus, vomiting or weight changes Genitourinary Genitourinary: Denies abdominal discomfort, burning urination or itching Musculoskeletal Musculoskeletal: Reports as per HPI; Denies muscle weakness or myalgias Integumentary Integumentary: Denies jaundice Neurologic Neurologic: Denies lack of coordination or weakness Psychiatric Psychiatric: Denies confusion, depression, memory loss, mood swings, paranoia or suicidal ideation Endocrine Endocrinology: Denies systems reviewed and no addt'l complaints, except as documented Hematologic/Lymphatic Hematologic/Lymphatic: Denies anemia, easy bleeding, easy bruising or lymphadenopathy Allergic/Immunologic Allergic/Immunologic: Denies systems reviewed and no addt'l complaints, except as documented Physical Exam Const alert General Appearance: cooperative Orientation / Consciousness: oriented to person HEENT hearing grossly normal bilaterally Head and Scalp: normal to inspection Face and Sinus: face symmetric Nose: external nose normal Mouth: oral and palatal mucosa normal Eyes conjunctivae normal General Eye: normal appearance of both eyes Neck full ROM General: normal visual inspection Lymph Lymphatic: no lymphadenopathy noted Chest inspection of chest normal and palpation of chest normal Chest: symmetrical chest wall rise Resp normal respiratory effort Effort and Inspection: able to speak in complete sentences Cardio regular rate GI non-distended Percussion: normal to percussion Rectal Exam: deferred Neuro Speech: speech normal Gait (Neuro): normal gait Lab / Micro Data Result Diagrams: 05/13/21 11:35? 05/13/21 11:35? Labs: Laboratory Results - last 24 hr 05/13/21 11:35:?WBC 10.3,?RBC 3.72 L,?Hgb 11.8 L,?Hct 36.4 L,?MCV 97.8 H, MCH 31.7, MCHC 32.4,?RDW Std Deviation 50.4 H, RDW Coeff of Sekou 13.9, Plt Count 441, MPV 9.5, Immature Gran % (Auto) 0.500,?Neut % (Auto) 77.5 H,?Lymph % (Auto) 10.2 L, [place] % (Auto) 6.8, Eos % (Auto) 3.8,?Baso % (Auto) 1.2 H,?Absolute Neuts (auto) 8.0 H, Absolute Lymphs (auto) 1.05, Nucleated RBC % 0 05/13/21 11:35:?PT 14.1, INR 1.2, APTT 30.5 05/13/21 11:35:?Sodium 140,?Potassium 3.2 L, Chloride 107, Carbon Dioxide 28.0, Anion Gap 5, BUN 7, Creatinine 0.92, Estim Creat Clear Calc 66.09, Est GFR (MDRD) Af Amer 103, Est GFR (MDRD) Non-Af 85,?BUN/Creatinine Ratio 7.6 L,?Glucose 146 H, Calcium 8.6,?Troponin I High Sens < 3 L 05/13/21 11:35: Total Bilirubin 5.40 H,?Direct Bilirubin 4.44 H,?AST 54 H, ALT 23,?Alkaline Phosphatase 343 H, Total Protein 7.0,?Albumin 2.2 L,?Globulin 4.8 H 05/13/21 11:55: Lactic Acid 2.2 H* 05/13/21 14:30:?Urine Color Yellow, Urine Clarity Clear, Urine pH 7.0, Ur Specific Lena 1.010,?Urine Protein 15 H, Urine Glucose (UA) Normal, Urine Ketones Negative,?Urine Occult Blood 10 H, Urine Nitrite Negative,?Urine Bilirubin 3 H,?Urine Urobilinogen 8 H,?Ur Leukocyte Esterase 25 H, Urine RBC 0 SEEN, Urine WBC 0-5 SEEN, Ur Squamous Epith Cells 0-5 SEEN, Urine Bacteria 1+, Urine Mucus 0 SEEN 05/13/21 16:16:?Lactic Acid 1.9 05/13/21 16:16: Troponin I High Sens < 3 L Radiology Impression Brain CT? 05/13/21 11:37 IMPRESSION: Chronic involutional changes of the brain. ? Electronically Signed: Kong Nieves MD at 12:53 EDT , ? Chest X-Ray? 05/13/21 12:10 IMPRESSION: 2.8 cm x 2 cm nodule in the posterior medial segment of the left lower lobe.? CT scan recommended. ? Electronically Signed: Kong Nieves MD at 12:57 EDT , ? Chest/Abdomen/Pelvis CT? 05/13/21 13:14 IMPRESSION: 3 cm x 1.6 cm heterogeneous nodule in the posterior medial segment of the left lower lobe.? Correlation with the biopsy or PET scan recommended. ? Dilated intrahepatic biliary ducts and common bile duct.? Findings suggestive of choledocholithiasis in the distal portion of the common bile duct.? The patient is status post cholecystectomy. ? Electronically Signed: Kong Nieves MD at 13:50 EDT , ? Assessment & Plan Assessment/Plan (1) Choledocholithiasis: PLAN: ? ? ? Patient will have a repeat ERCP with stent removal .? I will put him on antibiotics to help prevent cholangitis.? I have re-examined the patient. There are no clinical changes since date of exam.
--- NOTE | 2021-09-07 11:07 | OP.CCLET_ITS ---
09/07/2021 No Primary Care Physician Re : ERCP procedure for [facility] Phys[facility] This procedure was performed on Tuesday, September 07, 2021. My impressions and recommendations are as follows: Impressions : - The entire main bile duct was dilated, with a stone causing an obstruction. - The patient has had a cholecystectomy. - Choledocholithiasis was found. Complete removal was accomplished by biliary sphincterotomy and balloon extraction. - A biliary sphincterotomy was performed. - The biliary tree was swept. - One stent was removed from the biliary tree. Recommendations : My findings are described in the full procedure note, which is enclosed. If I can be of further assistance, please feel free to contact me at . Sincerely, Chay Cornelius, 09/07/2021 11:07:26 AM This report has been signed electronically.
--- NOTE | 2021-09-07 11:07 | OP.ERCP_ITS ---
Patient Name: Kris Mcgill Procedure Date: 09/07/2021 10:01 AM Date of : 1945 Age: 75 Procedure: ERCP Indications: Biliary stent removal Providers: Chay Cornelius DO Medicines: Monitored Anesthesia Care, General Anesthesia Patient Profile: This is a 75 year old male. Refer to note in patient chart for documentation of history and physical. Patient has symptoms. He is status post ERCP for biliary evaluation, ERCP for sphincterotomy, ERCP for stent and ERCP for stone removal. Complications: No immediate complications. Procedure: Pre-Anesthesia Assessment: - Prior to the procedure, a History and Physical was performed, and patient medications and allergies were reviewed. The patient is competent. The risks and benefits of the procedure and the sedation options and risks were discussed with the patient. All questions were answered and informed consent was obtained. Patient identification and proposed procedure were verified by the physician in the pre-procedure area. Mental Status Examination: alert and oriented. Airway Examination: normal oropharyngeal airway and neck mobility. Respiratory Examination: clear to auscultation. CV Examination: normal. Prophylactic Antibiotics: The patient does not require prophylactic antibiotics. Prior Anticoagulants: The patient has taken no previous anticoagulant or antiplatelet agents. After reviewing the risks and benefits, the patient was deemed in satisfactory condition to undergo the procedure. The anesthesia plan was to use moderate sedation / analgesia (conscious sedation). Immediately prior to administration of medications, the patient was re-assessed for adequacy to receive sedatives. The heart rate, respiratory rate, oxygen saturations, blood pressure, adequacy of pulmonary ventilation, and response to care were monitored throughout the procedure. The physical status of the patient was re-assessed after the procedure. After obtaining informed consent, the scope was passed under direct vision. Throughout the procedure, the patient's blood pressure, pulse, and oxygen saturations were monitored continuously. The Duodenoscope was introduced through the mouth, and advanced to the duodenum and used to inject contrast into the bile duct. The ERCP was accomplished without difficulty. The patient tolerated the procedure well. Scope In: 10:31:18 AM Scope Out: 10:59:07 AM Total Procedure Duration Time 0 hours 27 minutes 49 seconds Findings: The help desk specialist film was normal. The esophagus was successfully intubated under direct vision. The scope was advanced to a normal major papilla in the descending duodenum without detailed examination of the pharynx, larynx and associated structures, and upper GI tract. The upper GI tract was grossly normal. The bile duct was deeply cannulated with the short-nosed traction sphincterotome. Contrast was injected. I personally interpreted the bile duct images. The entire opacified area contained one stone, which was 6 mm in diameter. The main bile duct was diffusely dilated, with a stone causing an obstruction. The largest diameter was 10 mm. A cholecystectomy had been performed. A straight Roadrunner wire was passed into the biliary tree. A 5 mm biliary sphincterotomy was made with a traction (standard) sphincterotome using ERBE electrocautery. There was no post-sphincterotomy bleeding. The biliary tree was swept with a 15 mm balloon starting at the bifurcation. Sludge was swept from the duct. All stones were removed. One stent was removed from the biliary tree using a snare. Impression: - The entire main bile duct was dilated, with a stone causing an obstruction. - The patient has had a cholecystectomy. - Choledocholithiasis was found. Complete removal was accomplished by biliary sphincterotomy and balloon extraction. - A biliary sphincterotomy was performed. - The biliary tree was swept. - One stent was removed from the biliary tree. Procedure Code(s): --- Professional --- 47005, Endoscopic retrograde cholangiopancreatography (ERCP); with removal of foreign body(s) or stent(s) from biliary/pancreatic duct(s) 87766, Endoscopic retrograde cholangiopancreatography (ERCP); with removal of calculi/debris from biliary/pancreatic duct(s) 91976, Endoscopic retrograde cholangiopancreatography (ERCP); with sphincterotomy/papillotomy 67542, 26, Endoscopic catheterization of the biliary ductal system, radiological supervision and interpretation CPT copyright 2017 [employer]. All rights reserved. The codes documented in this report are preliminary and upon batch analyst review may be revised to meet current compliance requirements. Chay Cornelius DO 09/07/2021 11:07:26 AM This report has been signed electronically. Number of Addenda: 0 Note Initiated On: 09/07/2021 10:01 AM
--- NOTE | 2021-09-07 13:12 | SUR.PHASEII ---
DETENTION CALLED FOR REPORT TO SEND PT BACK TO FACILITY. NO ANSWER, DTR AWARE AND HAS D/C INSTRUCTIONS TO GIVE NURSE.
--- NOTE | 2021-09-08 15:02 | HP.PCM_ITS ---
History and Physical Date of Admission: 09/07/21 JERRICA ARGUETA, is a 75 M who presented to the office today for Initial consultation for fatty liver disease. He is a resident of [facility]. He was noted to be jaundice during his admission with daughter reporting that he was previously diagnosed with fatty liver during hos pitalization with [facility]. He was admitted to [facility] 11.4.21 for in acute rhabdomyolysis without renal failure as a result of being on the ground for approximately three days secondary to weakness and fever. He was also found to have MRSA in his blood likely secondary to severe BLE cellulitis infection r/t scratching and bedbug infection and a complicated UTI. Reports SOB with exertion since discharge. 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 He presents here for evaluation of an fatty liver.? His daughter who is with him has noticed he become more yellow.? He denies any history of alcohol abuse or even usage in the past.? He has no previous history of hepatitis C.? He has no tattoos.? He has not received any blood transfusions.? As previously ordered, bhargav bush thinks that his father of liver disease that was likely from alcoholism.? He has been complaining of some itching on his extremities.? He does not sleep very well.? Says he usually falls asleep around 1:00 in the morning and wakes up in the afternoon the next day.? He knows who the president is at this time.? He knows what year it is at this time.? He knows his name and his date of .? He denies any history of ascites or GI bleeding. We will send him from the clinic over for biochemical evaluation. Patient was getting labs drawn when he became unresponsive.? Family was with him and noted that he was unable to speak.? Family noted the patient was drooling from his mouth as well.? Patient was brought to the emergency department.? Currently, patient is able to speak.? Patient is able to handle secretions.? Patient is confused still.? Patient denies any pain or headaches. His initial CT is pending to see if he had an acute stroke.? His biochemical profile did show elevated liver enzymes consistent with cholestatic hepatitis and jaundice.? His CT scan of the chest abdomen pelvis had shown a suspicious mass in his lungs and multiple stones in his common bile duct. [facility] Medical History?(Updated 05/13/21 @ 16:11 by Estella Simeon) Atherosclerotic heart disease of [place] coronary artery without angina pectoris BMI 29.0-29.9,adult Chronic kidney disease, stage 2 (mild) Exertional dyspnea Fatty liver Generalized pruritus Hypertension Hypokalemia Low vitamin B12 level Lymphoma Mixed hyperlipidemia Stroke/cerebrovascular accident Home Medications amlodipine 5 mg tablet 5 mg PO DAILY 05/11/21 [History Last Taken 05/13/21] omega-3 fatty acids 1,000 mg capsule 1,000 mg PO BID 05/11/21 [History Last Take n 05/13/21] cholecalciferol (vitamin D3) 1,250 mcg PO MO 05/13/21 [History Last Taken 05/09/21] cyanocobalamin (vitamin B-12) 1,000 mcg IM QMONTH 05/13/21 [History Last Taken 04/28/21] hydroxyzine HCl 10 mg PO TID 05/13/21 [History Last Taken 05/13/21] Allergy/AdvReac Type Severity Reaction Status Date / Time allopurinol Allergy Intermediate UNK Verified 05/13/21 11:28 Family History?(Updated 05/11/21 @ 09:41 by Henny Fried) Father?? Emphysema of lungMother?? Cancer Surgical History? History of cholecystectomy Social History? Smoking Status:? Never smoker alcohol intake:? never substance use type:? does not use ROS Review of Systems ROS Unobtainable: other Constitutional Constitutional: Denies fatigue, fever(s), poor appetite, weight gain or weight loss ENT HEENT: Denies mouth lesions Cardiovascular Cardiovascular: Denies abdominal bloating, abdominal edema or abdominal pain Respiratory/Chest Respiratory/Chest: Denies change in mental status, change in phlegm color, chest congestion or chest tightness Gastrointestinal Gastrointestinal: Denies belching, bloating, change in bowel habits, change in stool character, chewing difficulty, coffee ground emesis, constipation, cramping, diarrhea, dyspepsia, dysphagia, early satiety, excessive flatus, fecal incontinence, heartburn, hematemesis, hematochezia, hemorrhoids, loose stools, melena, nausea, odynophagia, rectal bleeding, tenesmus, vomiting or weight changes Genitourinary Genitourinary: Denies abdominal discomfort, burning urination or itching Musculoskeletal Musculoskeletal: Reports as per HPI; Denies muscle weakness or myalgias Integumentary Integumentary: Denies jaundice Neurologic Neurologic: Denies lack of coordination or weakness Psychiatric Psychiatric: Denies confusion, depression, memory loss, mood swings, paranoia or suicidal ideation Endocrine Endocrinology: Denies systems reviewed and no addt'l complaints, except as documented Hematologic/Lymphatic Hematologic/Lymphatic: Denies anemia, easy bleeding, easy bruising or lymphadenopathy Allergic/Immunologic Allergic/Immunologic: Denies systems reviewed and no addt'l complaints, except as documented Physical Exam Const alert General Appearance: cooperative Orientation / Consciousness: oriented to person HEENT hearing grossly normal bilaterally Head and Scalp: normal to inspection Face and Sinus: face symmetric Nose: external nose normal Mouth: oral and palatal mucosa normal Eyes conjunctivae normal General Eye: normal appearance of both eyes Neck full ROM General: normal visual inspection Lymph Lymphatic: no lymphadenopathy noted Chest inspection of chest normal and palpation of chest normal Chest: symmetrical chest wall rise Resp normal respiratory effort Effort and Inspection: able to speak in complete sentences Cardio regular rate GI non-distended Percussion: normal to percussion Rectal Exam: deferred Neuro Speech: speech normal Gait (Neuro): normal gait Lab / Micro Data Result Diagrams: 05/13/21 11:35? 05/13/21 11:35? Labs: Laboratory Results - last 24 hr 05/13/21 11:35:?WBC 10.3,?RBC 3.72 L,?Hgb 11.8 L,?Hct 36.4 L,?MCV 97.8 H, MCH 31.7, MCHC 32.4,?RDW Std Deviation 50.4 H, RDW Coeff of [place] 13.9, Plt Count 441, MPV 9.5, Immature Gran % (Auto) 0.500,?Neut % (Auto) 77.5 H,?Lymph % (Auto) 10.2 L, [place] % (Auto) 6.8, Eos % (Auto) 3.8,?Baso % (Auto) 1.2 H,?Absolute Neuts (auto) 8.0 H, Absolute Lymphs (auto) 1.05, Nucleated RBC % 0 05/13/21 11:35:?PT 14.1, INR 1.2, APTT 30.5 05/13/21 11:35:?Sodium 140,?Potassium 3.2 L, Chloride 107, Carbon Dioxide 28.0, Anion Gap 5, BUN 7, Creatinine 0.92, Estim Creat Clear Calc 66.09, Est GFR (MDRD) Af Amer 103, Est GFR (MDRD) Non-Af 85,?BUN/Creatinine Ratio 7.6 L,? Glucose 146 H, Calcium 8.6,?Troponin I High Sens < 3 L 05/13/21 11:35: Total Bilirubin 5.40 H,?Direct Bilirubin 4.44 H,?AST 54 H, ALT 23,?Alkaline Phosphatase 343 H, Total Protein 7.0,?Albumin 2.2 L,?Globulin 4.8 H 05/13/21 11:55: Lactic Acid 2.2 H* 05/13/21 14:30:?Urine Color Yellow, Urine Clarity Clear, Urine pH 7.0, Ur Specific [place] 1.010,?Urine Protein 15 H, Urine Glucose (UA) Normal, Urine Ketones Negative,?Urine Occult Blood 10 H, Urine Nitrite Negative,?Urine Bilirubin 3 H,?Urine Urobilinogen 8 H,?Ur Leukocyte Esterase 25 H, Urine RBC 0 SEEN, Urine WBC 0-5 SEEN, Ur Squamous Epith Cells 0-5 SEEN, Urine Bacteria 1+, Urine Mucus 0 SEEN 05/13/21 16:16:?Lactic Acid 1.9 05/13/21 16:16: Troponin I High Sens < 3 L Radiology Impression Brain CT? 05/13/21 11:37 IMPRESSION: Chronic involutional changes of the brain. ? Electronically Signed: Kong Nieves MD at 12:53 EDT , ? Chest X-Ray? 05/13/21 12:10 IMPRESSION: 2.8 cm x 2 cm nodule in the posterior medial segment of the left lower lobe.? CT scan recommended. ? Electronically Signed: Kong Nieves MD at 12:57 EDT , ? Chest/Abdomen/Pelvis CT? 05/13/21 13:14 IMPRESSION: 3 cm x 1.6 cm heterogeneous nodule in the posterior medial segment of the left lower lobe.? Correlation with the biopsy or PET scan recommended. ? Dilated intrahepatic biliary ducts and common bile duct.? Findings suggestive of choledocholithiasis in the distal portion of the common bile duct.? The patient is status post cholecystectomy. ? Electronically Signed: Kong Nieves MD at 13:50 EDT , ? Assessment & Plan Assessment/Plan (1) Choledocholithiasis: PLAN: ? ? ? Patient will have a repeat ERCP with stent removal .? I will put him on antibiotics to help prevent cholangitis.? I have re-examined the patient. There are no clinical changes since date of exam.
== END 2021-09-07 13:14 | disposition home or self-care (01) ==
LOC: EN 08:02 → AC 08:13
PROVIDERS: Visit Provider Internal Medicine Gastroenterology
PROC: (CPT 43260; principal; 2021-09-07 09:00)
DX: K80.50 Calculus of bile duct without cholangitis or cholecystitis without obstruction (principal); I25.10 Atherosclerotic heart disease of native coronary artery without angina pectoris; L29.9 Pruritus, unspecified; E55.9 Vitamin D deficiency, unspecified; Z92.3 Personal history of irradiation; N18.2 Chronic kidney disease, stage 2 (mild); E78.2 Mixed hyperlipidemia; K76.0 Fatty (change of) liver, not elsewhere classified; K83.8 Other specified diseases of biliary tract; I12.9 Hypertensive chronic kidney disease with stage 1 through stage 4 chronic kidney disease, or unspecified chronic kidney disease; Z86.73 Personal history of transient ischemic attack (TIA), and cerebral infarction without residual deficits; Z90.49 Acquired absence of other specified parts of digestive tract
CPT/HCPCS: 43262; 43275; 43264; 74328; 76000; J7120; J2405

== ENCOUNTER 2021-12-21 10:12 | Emergency (ER) | payer MEDICARE, MEDICAID, SELFPAY ==
[2021-12-21 10:13] VITALS: BP 117/70; PULSE 87; RESP 16; TEMP 36.7; O2SAT 98; BMI 25.1
[2021-12-21 10:17] VITALS: O2SAT 99
--- NOTE | 2021-12-21 10:31 | EDS_ITS ---
HPI HPI - Fall History of Present Illness Chief Complaint: Fall Informant: patient Occured/Mechanism Occurred: Today Mechanism/Context: Yes same level fall Usually ambulates: Walker Pain/Injury Pain Location: head and neck Quality of Pain: Sharp Worsened by: Nothing Relieved by: Nothing Associated Symptoms Associated Symptoms: Negative for Parasthesias, Weakness or Loss of consciousness Narrative Narrative: Patient presents after a fall that occurred today. Patient has a history of frequent falls. Patient thinks he hit his head. Patient denies any loss of consciousness. Patient admits to some pain in his neck and head. Patient does not take any anticoagulants. Patient has a history of lower cervical vertebral fracture from a recent fall. Patient does not wear his neck brace. Patient denies any paresthesias or weakness. Patient states his pain is sharp. Patient states nothing makes it better nothing makes it worse. Patient is unsure of his last tetanus. Tetanus Immunization: Unknown [facility] Medical History Arthritis Atherosclerotic heart disease of [place] coronary artery without angina pectoris BMI 29.0-29.9,adult Cancer Chronic kidney disease, stage 2 (mild) Exertional dyspnea Fatty liver Gastric reflux Generalized pruritus High cholesterol History of echocardiogram History of pain when walking Hypertension Hypokalemia Low vitamin B12 level Lymphoma Mixed hyperlipidemia Restless legs Stroke/cerebrovascular accident Syncope Walker as ambulation aid Home Medications omega-3 fatty acids 1,000 mg capsule 1,000 mg PO BID supplement 05/11/21 [History Last Taken 05/13/21] cyanocobalamin (vitamin B-12) 1,000 mcg/mL injection solution 1,000 mcg IM QMONTH vitamin 05/13/21 [History Last Taken 04/28/21] acetaminophen 500 mg tablet 500 mg PO Q8 PRN Pain 09/05/21 [History Last Taken Unknown] ergocalciferol (vitamin D2) 1,250 mcg (50,000 unit) capsule (Vitamin D2) 1,250 mcg PO QWEEK 09/05/21 [History Last Taken Unknown] lidocaine 4 % topical patch 1 patch topical DAILY 09/05/21 [History Last Taken Unknown] melatonin 10 mg tablet 10 mg PO QHS 09/05/21 [History Last Taken Unknown] tamsulosin 0.4 mg capsule 0.4 mg PO DAILY 09/05/21 [History Last Taken Unknown] Allergy/AdvReac Type Severity Reaction Status Date / Time allopurinol Allergy Intermediate UNK Verified 05/13/21 11:28 Family History (Updated 05/27/21 @ 11:23 by Yovana Jovel) Father Emphysema of lung COPD (chronic obstructive pulmonary disease) Mother Cancer Surgical History History of cholecystectomy Social History Smoking Status: Never smoker Electronic Cigarette Use: not used second hand exposure: No alcohol intake: never substance use type: does not use ROS ROS ED Constitutional Constitutional ED: Denies chills or fever(s) Eyes Eyes: Denies blurry vision or change in vision ENT ENT ED: Denies rhinorrhea or sore throat Cardiovascular Cardiovascular: Denies chest pain or palpitations Respiratory/Chest Respiratory/Chest: Denies cough or dyspnea Gastrointestinal Gastrointestinal: Denies nausea or vomiting Genitourinary Genitourinary ED: Denies dysuria or hematuria Musculoskeletal Musculoskeletal: Reports back pain and neck pain Integumentary Denies abscess or rash Neurologic Neurologic: Reports headache(s); Denies weakness Allergic/Immunologic Allergic/Immunologic ED: Denies mouth swelling or urticaria EXAM Physical Exam Const Vital Signs: 12/21/21 10:13 12/21/21 10:17 12/21/21 12:24 Temperature 98.1 F Temperature Source Oral Pulse Rate 87 Respiratory Rate 16 Respiratory Effort Normal Non-Labored Respiratory Depth Normal Respiratory Pattern Normal Blood Pressure 117/70 Blood Pressure Mean 85 Pulse Ox 98 99 97 Oxygen Delivery Method Room Air Room Air Positive well nourished and well developed General Appearance ED: well developed HEENT HEENT Narrative: There is an abrasion over the top of the scalp and forehead. There is also an abrasion over the bridge of the nose. There is no active bleeding. There is no bony crepitance or step-off. There is no deformity noted. Eyes PERRL and EOMs intact bilaterally Neck Neck Narrative: There is tenderness over the lower cervical spine and paraspinal muscles. There is no bony crepitance or step-off. There is no deformity noted. Resp normal respiratory effort and clear to auscultation bilaterally Cardio regular rate and regular rhythm GI non-tender Palpation: soft Neuro oriented x3, CN's II-XII intact bilaterally, moves all extremities, no focal motor deficits and no sensory deficits noted Sensorium / Orientation: alert Motor Exam: strength 5/5 throughout Psych mental status grossly normal MDM MDM MDM Narrative Medical decision making narrative: Patient was given a dose of [place] here. Patient was given a tetanus booster. CT scan of the brain was obtained. There is no acute intracranial abnormality. This was interpreted by the radiologist and reviewed by myself. CT scan of the cervical spine was obtained. There are nondisplaced compression fractures of C5 and C6. Patient states he knows he has had these. Patient refuses to wear his neck brace at the skilled nursing. Patient was instructed to follow-up with his primary care physician in 5 to 7 days. Patient understood and was agreeable with the plan. All questions were answered. Radiography Diagnostic Testing: Clinical Impression(s) from Imaging Studies Brain CT 12/21/21 11:00 IMPRESSION: Chronic involutional changes of the brain. Small scalp hematoma overlying the left frontal bone. Electronically Signed: Kong Nieves MD at 11:33 EDT , Cervical Spine CT 12/21/21 11:00 IMPRESSION: Deformity of the C5 and C6 vertebrae suggestive of a compression fractures. Nondisplaced. These most likely not acute in nature according to history. Anterior flowing spondylosis suggests DISH Electronically Signed: Kong Nieves MD at 11:37 EDT , Discharge Plan Triage Chief Complaint: Fall ED Provider: Ramesh Berman Dx/Rx/DC Orders Clinical Impression: Closed head injury, Compression fracture of cervical vertebra Instructions: ED Head Injury (Adult), ED Fall Prevention Prescriptions: No Action omega-3 fatty acids 1,000 mg capsule 1,000 mg PO BID cyanocobalamin (vitamin B-12) 1,000 mcg/mL solution 1,000 mcg IM QMONTH Label Comments: inject 1 milliliter ( 1000 MCG ) intramuscularly ONCE lidocaine 4 % Adhesive Patch,Medicated 1 patch TOPICAL DAILY Label Comments: ON FOR 12 HRS OFF FOR 12 HRS melatonin 10 mg Tablet 10 mg PO QHS acetaminophen 500 mg Tablet 500 mg PO Q8 PRN (Reason: Pain) tamsulosin 0.4 mg Capsule 0.4 mg PO DAILY ergocalciferol (vitamin D2) [Vitamin D2] 1,250 mcg (50,000 unit) Capsule 1,250 mcg PO QWEEK Primary Care Provider: Care Physician,No Primary Referrals: Care Physician,No Primary [Primary Care Provider] - 5-7 Days Disposition Disposition: Longterm Facility Discharge Location: [facility]
[2021-12-21] MEDS: HYDROcodone Bitartrate/Apap 5/325 Tablet PO (10:48)
[2021-12-21] MEDS: Diphth,Pertuss(Acell),Tet Vac 0.5 ML Vial IM (10:49)
--- NOTE | 2021-12-21 11:00 | CT_ITS ---
STUDY: CT CERVICAL SPINE WITHOUT CONTRAST REASON FOR EXAM: Male, 75 years old. Frequent falls. History of C6 fracture. RADIATION DOSAGE (If Supplied By Facility): CTDIvol = ( 19.82 ) mGy, DLP = ( 451.27 ) mGycm TECHNIQUE: High resolution transaxial imaging was performed without contrast material. Sagittal and coronal images were reconstructed. Individualized dose optimization techniques were used for this CT. COMPARISON: None FINDINGS: Normal craniovertebral junction. There are degenerative changes of the anterior atlantoaxial articulation. Normal odontoid process. Normal cervical lordosis. Normal vertebral bodies and posterior osseous elements. C2-3: Anterior spondylosis. C3-4: Anterior spondylosis. Mild degree of facet joint osteoarthritis. C4-5: Mild degree of disc space narrowing. Anterior spondylosis. Uncovertebral arthrosis. Moderate degree of right neural foraminal stenosis. C5-6: Marked degree of disc space narrowing. Anterior spondylosis. Nondisplaced fracture of the body of the C5 vertebrae. The fracture line is irregular. Posterior spondylosis with central canal stenosis. Mild degree of bilateral neural foraminal stenosis. C6-7: Disc space narrowing. Anterior spondylosis. Irregularity along the superior endplate of the C7 vertebrae suggestive of a compression fracture. The age cannot be determined on this single examination. C7-T1: Anterior spondylosis. Carotid calcification. CT/Spine Cervical without Contras IMPRESSION: Deformity of the C5 and C6 vertebrae suggestive of a compression fractures. Nondisplaced. These most likely not acute in nature according to history. Anterior flowing spondylosis suggests DISH Electronically Signed: Kong Nieves MD at 11:37 EDT ,
--- NOTE | 2021-12-21 11:00 | CT_ITS ---
STUDY: CT BRAIN WITHOUT CONTRAST REASON FOR EXAM: Male, 75 years old. Frequent falls. RADIATION DOSAGE (If Supplied By Facility): CTDIvol = ( 47.06 ) mGy, DLP = ( 907.97 ) mGycm TECHNIQUE: Transaxial CT imaging of the brain was performed without administration of intravenous contrast material. Individualized dose optimization techniques were used for this CT. COMPARISON: Comparison is made with prior study dated 05/13/2021. FINDINGS: There is evidence of a small scalp hematoma overlying the left frontal bone. Normal calvarium. There is mild cerebral atrophy with widening of the extra-axial spaces and ventricular dilatation. There are areas of decreased attenuation within the white matter tracts of the supratentorial brain, consistent with microvascular disease changes. Normal basal ganglia and thalami. Normal brainstem. Normal cerebellum. There is no intracranial hemorrhage. There are no findings of an acute ischemic infarction. Atherosclerotic plaque formation of the cavernous portions of the internal carotid arteries bilaterally. Normal visualized paranasal sinuses. CT/Brain/Head without Contrast IMPRESSION: Chronic involutional changes of the brain. Small scalp hematoma overlying the left frontal bone. Electronically Signed: Kong Nieves MD at 11:33 EDT ,
[2021-12-21 12:24] VITALS: O2SAT 97
[2021-12-21 12:47] VITALS: BP 116/68; PULSE 62; RESP 15; O2SAT 98
--- NOTE | 2021-12-21 12:49 | ED.RN ---
REPORT CALLED TO [facility], THEY ARE AWARE OF PT STATUS AN ARE GOING TO NOTIFY PT DAUGHTER
== END 2021-12-21 13:22 | disposition skilled nursing facility (03) ==
PROVIDERS: Emergency Provider Emergency Medicine; Visit Provider Emergency Medicine
DX: S00.03XA Contusion of scalp, initial encounter (principal); M48.52XA Collapsed vertebra, not elsewhere classified, cervical region, initial encounter for fracture; I12.9 Hypertensive chronic kidney disease with stage 1 through stage 4 chronic kidney disease, or unspecified chronic kidney disease; I25.10 Atherosclerotic heart disease of native coronary artery without angina pectoris; E78.2 Mixed hyperlipidemia; W18.30XA Fall on same level, unspecified, initial encounter; R51.9 Headache, unspecified; N18.2 Chronic kidney disease, stage 2 (mild)
CPT/HCPCS: 70450; 72125; 99284

== ENCOUNTER 2022-03-10 22:59 | Inpatient (IN) | payer MEDICARE, MEDICAID, SELFPAY ==
[2022-03-10 23:00] VITALS: PULSE 98; RESP 25; TEMP 36.8; BMI 21.2
[2022-03-10 23:07] VITALS: BP 55/44; PULSE 91; RESP 25; O2SAT 97
--- NOTE | 2022-03-10 23:13 | EKG12_ITS ---
Test Reason : ALT. MENTAL STATUS Blood Pressure : / mmHG Vent. Rate : 082 BPM Atrial Rate : 000 BPM P-R Int : 000 ms QRS Dur : 108 ms QT Int : 404 ms P-R-T Axes : 000 -71 087 degrees QTc Int : 472 ms Atrial fibrillation with a competing junctional pacemaker Incomplete right bundle branch block Left anterior fascicular block ST & T wave abnormality, consider lateral ischemia Abnormal ECG Confirmed by RAMILA MONROY, ROSMERY ([id number]), greeting card editor KRISH FRITZ ([id number]) on 03/13/2022 10:27:56 AM Referred By: ALBERT Confirmed By:ROSMERY MCGRATH MD
[2022-03-10 23:16] VITALS: BP 80/66; PULSE 89; RESP 24; O2SAT 97
[2022-03-10] MEDS: 0.9% Normal Saline 1,000 ML 999 ML IV (23:20)
[2022-03-10 23:26] LABS: Base Excess -2 mmol/L (-2 to +2); Bicarbonate 18.6 mmol/L (22-26); Blood Gas Specimen Type ART; O2 Delivery Device Cannula; PO2 85 mmHG (75-100); SITE L Brach; SO2 98 % (95-99); Total Carbon Dioxide 19 mmol/L; pCO2 17.2 mmHg (35-45); pH 7.64 (7.35-7.45)
[2022-03-10 23:29] LABS: International Normalized Ratio 1.2; Prothrombin Time (Protime)PT. 14.9 SECONDS (11.7-14.9)
[2022-03-10 23:30] LABS: Partial Thromboplast Time 31.3 Seconds (24.1-36.2)
[2022-03-10 23:31] LABS: Absolute Lymphocyte Count 0.71 X10^3/uL (0.83-4.51); Absolute Neutrophil Count 14.4 X10^3/uL (2.0-7.7); Basophil# 0.02 X10^3/uL; Basophil% 0.1 % (0-1); Hematocrit 36.3 % (40-54); Lymphocyte # 0.71 X10^3/ul (0.83-4.51); Lymphocyte % 4.5 % (19-41); Mean Corp Hgb Conc 30.3 g/dL (32-36); Mean Corpuscular Hgb 25.9 pg (27.0-32.0); Mean Corpuscular Volume 85.4 fL (80-94); Mean Platelet Vol. 8.8 fl (6.2-12.0); Monocyte# 0.52 X10^3/uL; Monocyte% 3.3 % (0-10); NRBC Flagged by Analyzer 0 % (0-5); Neutrophil # 14.35 X10^3/uL (2.7-7.7); Neutrophil % 90.9 % (47-70); Platelet Count 560 K/mm3 (150-450); RBC Distribution Width CV 15.8 % (11.6-14.6); RBC Distribution Width SD 49.1 fl (35.1-43.9); Red Blood Count 4.25 M/mm3 (4.6-6.2); White Blood Count 15.8 K/mm3 (4.4-11.0)
[2022-03-10 23:37] VITALS: BP 78/60; PULSE 81; PULSE 82; RESP 21; RESP 30; TEMP 36.3; O2SAT 100
[2022-03-10 23:37] LABS: AST(SGOT) 82 U/L (15-37); Alanine Aminotransfer ALT/SGPT 33 U/L (16-61); Alkaline Phosphatase 547 U/L (45-117); Anion Gap 11 (5-15); BUN 25 mg/dL (7-18); BUN/Creat Ratio 15.4 RATIO (10-20); Bilirubin, Direct 2.01 mg/dL (0.00-0.30); Calcium,Total 8.7 mg/dL (8.5-10.1); Chloride 106 mmol/L (98-107); Creatinine, Serum 1.62 mg/dL (0.70-1.30); EST Glomerular Filtration Rate 44 mL/min (>60); Est Glom Filt Rate - Afr Amer 53 mL/min (>60); Globulin 5.7 g/dL (2.2-4.2); Glucose 179 mg/dL (74-106); Protein, Total 7.7 g/dL (6.4-8.2); Sodium Level 143 mmol/L (136-145)
[2022-03-10 23:44] LABS: Lactic Acid 3.5 mmol/L (0.4-1.9)
[2022-03-11] VITALS (20 sets, daily range): BP systolic 80–135; BP diastolic 45–71; PULSE 67–98; RESP 15–24; TEMP 36.3–37.4; O2SAT 92–100; BMI 20.8
[2022-03-11 00:02] LABS: Ammonia < 10.0 umol/L (11-32)
[2022-03-11] MEDS: 0.9% Normal Saline 1,000 ML 999 ML IV (00:24)
[2022-03-11 00:27] LABS: Procalcitonin 1.29 ng/mL (0.00-0.09)
[2022-03-11 00:55] LABS: Color, Urine Amber (Yellow); Glucose, Dipstick Normal (Normal); Ketone-Dipstick 5 mg/dl (Negative); Leukocyte Esterase-Dipstick 500 /ul (Negative); Nitrite-Dipstick Positive (Negative); Occult Blood-Urine 25 /ul (Negative); Protein-Dipstick 30 mg/dl (Negative); Urine Clarity Sl. Cloudy (Clear); Urine Urobilinogen 12 mg/dl (Normal)
[2022-03-11 00:56] LABS: Mucous, Urine 0 SEEN /hpf (<or=2+); Red Blood Cells-Urine 0 SEEN /hpf (0-5); Squamous Epithelial Cells - UA 0 SEEN /hpf (0-5)
[2022-03-11 00:59] LABS: Urine Bilirubin Dipstick 3 mg/dL (Negative)
[2022-03-11 01:01] LABS: White Blood Cells 10-25 SEEN /hpf (0-5)
[2022-03-11 01:02] LABS: Bacteria 2+ /hpf (None Seen)
[2022-03-11] MEDS: Potassium Chloride 10mEq/100mL 10 MEQ/100 ML IV.SOLN. 100 MEQ IV BOLUS ×4 (01:17→04:20)
--- NOTE | 2022-03-11 01:24 | PCM.HP.STD ---
HPI - General General Date of Admission: 03/11/22 Date of Service: 03/11/22 Chief Complaint: Minimally responsive HPI Narrative JERRICA ARGUETA, is a 76 M who lives at the senior care presenting because he was minimally responsive at the senior care. Reportedly at baseline patient is Alert and oriented 1-2. At the senior care reported patient had a coffee-ground emesis on his shirt and in bed. Per EMS patient was not moving his right side. However, at the emergency department patient was found to spontaneously moving all extremities at least with pain and had no focal deficits. Initial blood pressure was hypotensive and patient responded to fluids. At the emergency department patient also found to have dark brown emesis on his shirt . Emergency department doctor reports brown stool on rectal examination that returned occult positive. Reportedly there were no hemorrhoids or masses At the ED patient was found to have A. fib. Also abdomen pelvis CT which showed a biliary stone. His urine was found to be abnormal. [facility] Medical History Arthritis Atherosclerotic heart disease of [place] coronary artery without angina pectoris BMI 29.0-29.9,adult Cancer Chronic kidney disease, stage 2 (mild) Exertional dyspnea Fatty liver Gastric reflux Generalized pruritus High cholesterol History of echocardiogram History of pain when walking Hypertension Hypokalemia Low vitamin B12 level Lymphoma Mixed hyperlipidemia Restless legs Stroke/cerebrovascular accident Syncope Walker as ambulation aid Home Medications acetaminophen 500 mg tablet 500 mg PO Q8 PRN Pain 09/05/21 [History Last Taken Unknown] melatonin 10 mg tablet 10 mg PO QHS Sleep 09/05/21 [History Last Taken Unknown] tamsulosin 0.4 mg capsule 0.4 mg PO DAILY Bladder Spasm 09/05/21 [History Last Taken Unknown] hydrocodone-acetaminophen 5-325mg 5mg-325mg 1 tab PO Q8 pain 03/11/22 [History Last Taken Unknown] promethazine 25 mg/mL injection solution 25 mg IM Q8 nausea 03/11/22 [History Last Taken Unknown] sertraline 25 mg tablet (Zoloft) 25 mg PO DAILY Depression 03/11/22 [History Last Taken Unknown] Allergy/AdvReac Type Severity Reaction Status Date / Time allopurinol Allergy Intermediate UNK Verified 05/13/21 11:28 Family History Father Emphysema of lung COPD (chronic obstructive pulmonary disease) Mother Cancer Surgical History History of cholecystectomy Social History Smoking Status: Never smoker Electronic Cigarette Use: not used second hand exposure: No alcohol intake: never substance use type: does not use ROS Review of Systems ROS Unobtainable: due to mental status Vital Signs Vital Signs Vital Signs: 03/10/22 23:00 03/10/22 23:04 03/10/22 23:07 Temperature 98.2 F Temperature Source Temporal Pulse Rate 98 91 Respiratory Rate 25 H 25 H Respiratory Effort Agonal Respiratory Pattern Stridor Blood Pressure 55/44 L Blood Pressure Mean 47 Pulse Ox 97 Oxygen Delivery Method Nasal Cannula Nasal Cannula Oxygen Flow Rate (L/min) 4 5 03/10/22 23:16 03/10/22 23:37 03/10/22 23:37 Temperature 97.4 F L Temperature Source Temporal Pulse Rate 89 82 81 Respiratory Rate 24 H 30 H 21 H Respiratory Effort Respiratory Pattern Blood Pressure 80/66 L 78/60 L 78/60 L Blood Pressure Mean 70 66 66 Pulse Ox 97 100 100 Oxygen Delivery Method Nasal Cannula Nasal Cannula Nasal Cannula Oxygen Flow Rate (L/min) 3 3 3 03/11/22 00:37 03/11/22 01:00 Temperature 97.6 F L Temperature Source Oral Pulse Rate 89 96 Respiratory Rate 22 H 23 H Respiratory Effort Respiratory Pattern Blood Pressure 84/71 L 120/50 L Blood Pressure Mean 75 73 Pulse Ox 100 100 Oxygen Delivery Method Nasal Cannula Nasal Cannula Oxygen Flow Rate (L/min) 3 3 Weight Weight: 67.2 kg Body Mass Index (BMI) 21.2 Physical Exam Narrative Physical exam: General: Well-nourished, well-developed. Head: Removal of skin of left scalp Eyes: Vision is grossly intact. EOMI ENT, no trauma, moist mucous membranes, no rhinorrhea Neck: Nontender, No thyromegaly. CVS: Regular rate and rhythm. S1-S2 present. No murmur, gallop or rub. Respiratory : clear to auscultation bilaterally, chest wall nontender, no wheezing Abdomen: Soft, nontender, nondistended, normal bowel sounds, no masses : Deferred Back: Nontender, no CVA tenderness. Extremities: Nontender full range of motion, no trauma Skin: Normal color, no trauma, abrasions Neuro: Alert, knows that he is at the hospital Psychiatry: Normal mood. Normal affect. Not depressed. Not anxious. Results Lab / Micro Data Result Diagrams: 03/10/22 23:04 03/10/22 23:04 Labs: Laboratory Results - last 24 hr 03/10/22 23:04: WBC 15.8 H, RBC 4.25 L, Hgb 11.0 L, Hct 36.3 L, MCV 85.4, MCH 25.9 L, MCHC 30.3 L, RDW Std Deviation 49.1 H, RDW Coeff of [place] 15.8 H, Plt Count 560 H, MPV 8.8, Immature Gran % (Auto) 1.200 H, Neut % (Auto) 90.9 H, Lymph % (Auto) 4.5 L, [place] % (Auto) 3.3, Eos % (Auto) 0.0, Baso % (Auto) 0.1, Absolute Neuts (auto) 14.4 H, Absolute Lymphs (auto) 0.71 L, Nucleated RBC % 0 03/10/22 23:04: Sodium 143, Potassium 3.0 L, Chloride 106, Carbon Dioxide 26.0, Anion Gap 11, BUN 25 H, Creatinine 1.62 H, Estim Creat Clear Calc 36.30, Est GFR (MDRD) Af Amer 53 L, Est GFR (MDRD) Non-Af 44 L, BUN/Creatinine Ratio 15.4, Glucose 179 H, Calcium 8.7, Total Bilirubin 2.30 H, Direct Bilirubin 2.01 H, AST 82 H, ALT 33, Alkaline Phosphatase 547 H, Total Protein 7.7, Albumin 2.0 L, Globulin 5.7 H 03/10/22 23:04: Ammonia < 10.0 L 03/10/22 23:04: Lactic Acid 3.5 H* 03/10/22 23:04: PT 14.9, INR 1.2, APTT 31.3 03/10/22 23:04: Procalcitonin 1.29 H 03/11/22 00:51: Urine Color [place], Urine Clarity Sl. Cloudy, Urine pH 6.0, Ur Specific [place] 1.020, Urine Protein 30 H, Urine Glucose (UA) Normal, Urine Ketones 5 H, Urine Occult Blood 25 H, Urine Nitrite Positive H, Urine Bilirubin 3 H, Urine Urobilinogen 12 H, Ur Leukocyte Esterase 500 H, Urine RBC 0 SEEN, Urine WBC 10-25 SEEN, Ur Squamous Epith Cells 0 SEEN, Urine Bacteria 2+, Urine Mucus 0 SEEN Micro: Microbiology 03/11/22 00:51 Stool Stool Occult Blood (FLYNN) - Final Occult Blood Positive ABG Data ABG results: ABG 03/10/22 23:18 Specimen Type ART Sample Site L Brach pH 7.64 H* Bicarbonate Actual 18.6 L Total CO2 19 Base Excess -2 O2 Saturation 98 ABG pCO2 17.2 L* ABG pO2 85 O2 Delivery Device Cannula Liter Flow 5.0 Crit Call To/Read Back Yes Blood Gas Notified Whom dr. bonilla Radiology Impression Brain CT 03/11/22 23:13 IMPRESSION: Chronic periventricular white matter microvascular ischemic changes. Electronically Signed: Amrit Bueno MD at 0:57 EST , Chest/Abdomen/Pelvis CT 03/11/22 23:13 IMPRESSION: There is a stone in the common bile duct measuring 1.2 cm. there is severe dilatation of the common bile duct and intrahepatic biliary tree. The gallbladder has been removed. Sigmoid diverticulosis. Electronically Signed: Amrit Bueno MD at 1:06 EST , Assessment & Plan Assessment/Plan (1) Sepsis: (2) Atrial fibrillation: (3) Hypercoagulable state due to atrial fibrillation: (4) UTI (urinary tract infection): (5) Choledocholithiasis: (6) Acute hypokalemia: (7) AIYANA (acute kidney injury): PLAN: Plan Sepsis secondary to UTI The patient presented with sepsis due to (UTI) with acute sepsis related organ dysfunction as evidenced by (lactic acidosis; severe metabolic alkalosis; hypotension restarted blood pressure of less than 90 and MAP of less than 65). SIRS criteria: Respiratory rate more than 20 (highest respiratory rate of 30) WBC more than 12,000 (white count on presentation was 15,800) PCO2 of 17.2 mmHg Trend lactic acid. Trend white count. Responded to fluid resuscitation Received Unasyn at the emergency department since initially emergent event of the total patient may be having aspiration pneumonia. Chest/abdomen/pelvis CT: Impression by radiologist: There is a stone in the common bile duct measuring 1.2 cm. there is severe dilatation of the common bile duct and intrahepatic biliary tree. The gallbladder has been removed. Sigmoid diverticulosis. Chest/abdomen/pelvis CT was visualized and independently interpreted and I agree with radiologist interpretation Procalcitonin elevated at 1.29 but that could be secondary to AIYANA. Admit to the intensive care unit and consult tank car mechanic. New diagnosis A. fib with/hypercoagulable state due to atrial fibrillation EKG and telemetry strip showed atrial fibrillation with controlled rates. Likely secondary to sepsis. Received IV fluids. Potassium was 3.0, replaced. Magnesium was 2.1. Last echocardiogram on file was on 05/14/2021. Echocardiogram at that time showed estimated ejection fraction 55 to 60%. Normal left atrium. Normal right atrium. Repeat echocardiogram Patient is not a candidate of anticoagulation as A. fib may be transient and secondary sepsis and also patient has evidence of GI bleed. Acute GI bleed/choledocholithiasis/elevated liver biochemistry. His hemoglobin on presentation was 11.0. From review of old records his hemoglobin appears to be stable. However patient was noted to have coffee-ground emesis at senior care. Started on Protonix drip at emergency department and continued. Trend CBC and H&H. Gastroenterology consult. Acute on chronic elevated liver chemistry AST mildly elevated at 82; ALT normal. Alkaline phosphatase of 547 Trend CMP. Hyperbilirubinemia Chronic Stable. Acute hypokalemia Potassium of 3.0 in the emergency department replaced. Trend CMP. AIYANA likely secondary to ATN Creatinine on presentation was 1.62. His baseline creatinine is about 0.72.. BUN is 25. BUN over creatinine is 15.4. Avoid nephrotoxins. Gentle IV hydration. Trend CMP. DVT prophylaxis: Not a candidate of chemical thromboprophylaxis secondary to coffee-ground emesis. SCDs ordered. Charges/Coding Visit Charges Inpatient E&M: 26076 Init Hosp L3
[2022-03-11 01:26] LABS: Magnesium 2.1 mg/dL (1.6-2.6); Thyroid Stim Hormone (TSH) 1.16 uIU/mL (0.358-3.74)
--- NOTE | 2022-03-11 01:32 | EX.ED.DYSGE1 ---
HPI History of Present Illness Chief Complaint: Alt LOC Narrative Narrative: Patient is a 76-year-old male from the assisted with past medical history of hypertension hyperlipidemia and previous CVA. According to EMS/assisted they state his baseline mental status is alert and oriented to 1/2. They report that they found the patient unresponsive today with bouts of vomiting that appeared bloody in nature. Secondary to the emesis as well as his depressed mental status EMS was called. EMS states when they arrived the patient was obtunded but still breathing on his own but was not moving his right side or following commands. They state his blood sugar was 184. The patient cannot offer any further history based on his depressed mental status/clinical state [facility] Medical History Arthritis Atherosclerotic heart disease of [place] coronary artery without angina pectoris BMI 29.0-29.9,adult Cancer Chronic kidney disease, stage 2 (mild) Exertional dyspnea Fatty liver Gastric reflux Generalized pruritus High cholesterol History of echocardiogram History of pain when walking Hypertension Hypokalemia Low vitamin B12 level Lymphoma Mixed hyperlipidemia Restless legs Stroke/cerebrovascular accident Syncope Walker as ambulation aid Home Medications omega-3 fatty acids 1,000 mg capsule 1,000 mg PO BID supplement 05/11/21 [History Last Taken 05/13/21] cyanocobalamin (vitamin B-12) 1,000 mcg/mL injection solution 1,000 mcg IM QMONTH vitamin 05/13/21 [History Last Taken 04/28/21] acetaminophen 500 mg tablet 500 mg PO Q8 PRN Pain 09/05/21 [History Last Taken Unknown] ergocalciferol (vitamin D2) 1,250 mcg (50,000 unit) capsule (Vitamin D2) 1,250 mcg PO QWEEK 09/05/21 [History Last Taken Unknown] lidocaine 4 % topical patch 1 patch topical DAILY 09/05/21 [History Last Taken Unknown] melatonin 10 mg tablet 10 mg PO QHS 09/05/21 [History Last Taken Unknown] tamsulosin 0.4 mg capsule 0.4 mg PO DAILY 09/05/21 [History Last Taken Unknown] Allergy/AdvReac Type Severity Reaction Status Date / Time allopurinol Allergy Intermediate UNK Verified 05/13/21 11:28 Family History (Updated 05/27/21 @ 11:23 by Yovana Jovel) Father Emphysema of lung COPD (chronic obstructive pulmonary disease) Mother Cancer Surgical History History of cholecystectomy Social History Smoking Status: Never smoker Electronic Cigarette Use: not used second hand exposure: No alcohol intake: never substance use type: does not use ROS ROS ED ROS Narrative Review of systems cannot be obtained secondary to patient's altered mental status Review of Systems ROS Unobtainable: due to mental status EXAM Physical Exam Const Vital Signs: 03/10/22 23:00 03/10/22 23:04 03/10/22 23:07 Temperature 98.2 F Temperature Source Temporal Pulse Rate 98 91 Respiratory Rate 25 H 25 H Respiratory Effort Agonal Respiratory Pattern Stridor Blood Pressure 55/44 L Blood Pressure Mean 47 Pulse Ox 97 Oxygen Delivery Method Nasal Cannula Nasal Cannula Oxygen Flow Rate (L/min) 4 5 03/10/22 23:16 03/10/22 23:37 03/10/22 23:37 Temperature 97.4 F L Temperature Source Temporal Pulse Rate 89 82 81 Respiratory Rate 24 H 30 H 21 H Respiratory Effort Respiratory Pattern Blood Pressure 80/66 L 78/60 L 78/60 L Blood Pressure Mean 70 66 66 Pulse Ox 97 100 100 Oxygen Delivery Method Nasal Cannula Nasal Cannula Nasal Cannula Oxygen Flow Rate (L/min) 3 3 3 03/11/22 00:37 03/11/22 01:00 Temperature 97.6 F L Temperature Source Oral Pulse Rate 89 96 Respiratory Rate 22 H 23 H Respiratory Effort Respiratory Pattern Blood Pressure 84/71 L 120/50 L Blood Pressure Mean 75 73 Pulse Ox 100 100 Oxygen Delivery Method Nasal Cannula Nasal Cannula Oxygen Flow Rate (L/min) 3 3 Positive well nourished and well developed General Appearance ED: well developed HEENT Reports dry mucous membranes HEENT Narrative: Mucous membranes are dry and tacky. No tongue or lip swelling noted. No tongue or cheek biting noted. Patient does have dried secretions in the oropharynx most consistent with coffee-ground emesis/hematemesis. Mouth ED: Yes dry mucous membranes Mouth: dry mucous membranes Eyes PERRL and EOMs intact bilaterally Neck Neck Narrative: No nuchal rigidity noted Chest Wall palpation of chest normal Resp Resp Narrative: Breath sounds are diminished throughout patient does have diffuse wheeze and there is rhonchi in the right lower lobe concerning for aspiration especially history of vomiting. No nasal flaring retractions or tachypnea noted however Cardio Rate: other Other Details: Irregularly irregular rhythm with regular rate GI normal to inspection, nondistended, normoactive bowel sounds, non-tender, non-distended and no masses GI Narrative: No voluntary guarding or rigidity no pulsatile mass Auscultation: normoactive bowel sounds Palpation: soft Narrative: Rectal tone is normal there is no external hemorrhoid noted stool is brown in color but Hemoccult positive Extremity Extremity Narrative: No asymmetric edema no pitting edema Neuro Neuro Narrative: Patient is obtunded with GCS of 10. He will respond to sternal rub. He is moving all extremities to painful stimuli. Gag reflex is still present. There is no obvious focal neurologic deficit Psych Psych Narrative: Patient is obtunded with a GCS of 10 and responds to sternal rub Skin Skin Narrative: Skin is pale in color with increased skin turgor MDM MDM MDM Narrative Medical decision making narrative: Patient presented to the ER obtunded with GCS of 10 and only responsive to sternal rub. However he was protecting his airway and he would move all extremities to pain. EMS reported his blood sugar was normal but his blood pressure was low at 55/44 and therefore I feel that this change in mental status is related to hypotension and poor perfusion versus acute CVA. He does have coffee-ground emesis on his shirt consistent with report from assisted and with rhonchi noted in the right lower lungs have concern for aspiration pneumonia so blood cultures were obtained and Unasyn was started. Chart review does not list any type of cardiac dysrhythmia such as atrial fibrillation for the patient and therefore this would be considered a new dysrhythmia but as his rate is currently under 100 and he has changes consistent with GI bleed and hypotension I do not feel it is appropriate to provide any type of anticoagulation or rate reduction with a calcium channel flores or beta-flores as this will take his blood pressure. Patient does have physical exam findings for dehydration and was given 2 L of fluid and his blood pressure improved. With improvement of the blood pressure his mental status returned to his baseline which is alert and oriented x1-2. He is able to answer questions and move all extremities and there is no focal neurologic deficit. With the hematemesis noted on the patient's shirt as well as report from assisted and the fact he is got blood per rectum he was started on Protonix bolus and drip for GI bleed. At this time the patient is normotensive with a regular heart rate and with the improvement in his blood pressure his mental status has normalized as well. He is now awake and answering questions and at his baseline mental status and able to move all extremities indicating that his initial presentation was more secondary to hypotension than acute CVA. At this time patient will be admitted to internal medicine service in the ICU secondary to his risk for decompensation as he has multiple comorbidities along with multiple medical issues at this time such as GI bleed new onset A. fib UTI and septicemia secondary to this. Patient did receive 30 mls per kilo fluid bolus at approximately 2 L in the ER to improve blood pressure blood cultures and urine cultures were obtained and Unasyn was started because of the concern for aspiration but this will also cover the urinary tract infection. As patient has a white count about 12.4 and elevated lactate above 2 and has been tachypneic and initially presented with hypotension he does qualify for septicemia. Lab Data Attestation: I reviewed the patient's lab results. Labs: Laboratory Results - last 24 hr 03/10/22 03/10/22 03/10/22 23:04 23:04 23:04 WBC 15.8 H RBC 4.25 L Hgb 11.0 L Hct 36.3 L MCV 85.4 MCH 25.9 L MCHC 30.3 L RDW Std Deviation 49.1 H RDW Coeff of [place] 15.8 H Plt Count 560 H MPV 8.8 Immature Gran % (Auto) 1.200 H Neut % (Auto) 90.9 H Lymph % (Auto) 4.5 L [place] % (Auto) 3.3 Eos % (Auto) 0.0 Baso % (Auto) 0.1 Absolute Neuts (auto) 14.4 H Absolute Lymphs (auto) 0.71 L Nucleated RBC % 0 PT INR APTT Sodium 143 Potassium 3.0 L Chloride 106 Carbon Dioxide 26.0 Anion Gap 11 BUN 25 H Creatinine 1.62 H Estim Creat Clear Calc 36.30 Est GFR (MDRD) Af Amer 53 L Est GFR (MDRD) Non-Af 44 L BUN/Creatinine Ratio 15.4 Glucose 179 H Lactic Acid Calcium 8.7 Magnesium Total Bilirubin 2.30 H Direct Bilirubin 2.01 H AST 82 H ALT 33 Alkaline Phosphatase 547 H Ammonia < 10.0 L Total Protein 7.7 Albumin 2.0 L Globulin 5.7 H Procalcitonin TSH Urine Color Urine Clarity Urine pH Ur Specific [place] Urine Protein Urine Glucose (UA) Urine Ketones Urine Occult Blood Urine Nitrite Urine Bilirubin Urine Urobilinogen Ur Leukocyte Esterase Urine RBC Urine WBC Ur Squamous Epith Cells Urine Bacteria Urine Mucus 03/10/22 03/10/22 03/10/22 23:04 23:04 23:04 WBC RBC Hgb Hct MCV MCH MCHC RDW Std Deviation RDW Coeff of [place] Plt Count MPV Immature Gran % (Auto) Neut % (Auto) Lymph % (Auto) [place] % (Auto) Eos % (Auto) Baso % (Auto) Absolute Neuts (auto) Absolute Lymphs (auto) Nucleated RBC % PT 14.9 INR 1.2 APTT 31.3 Sodium Potassium Chloride Carbon Dioxide Anion Gap BUN Creatinine Estim Creat Clear Calc Est GFR (MDRD) Af Amer Est GFR (MDRD) Non-Af BUN/Creatinine Ratio Glucose Lactic Acid 3.5 H* Calcium Magnesium Total Bilirubin Direct Bilirubin AST ALT Alkaline Phosphatase Ammonia Total Protein Albumin Globulin Procalcitonin 1.29 H TSH Urine Color Urine Clarity Urine pH Ur Specific [place] Urine Protein Urine Glucose (UA) Urine Ketones Urine Occult Blood Urine Nitrite Urine Bilirubin Urine Urobilinogen Ur Leukocyte Esterase Urine RBC Urine WBC Ur Squamous Epith Cells Urine Bacteria Urine Mucus 03/10/22 03/11/22 23:04 00:51 WBC RBC Hgb Hct MCV MCH MCHC RDW Std Deviation RDW Coeff of [place] Plt Count MPV Immature Gran % (Auto) Neut % (Auto) Lymph % (Auto) [place] % (Auto) Eos % (Auto) Baso % (Auto) Absolute Neuts (auto) Absolute Lymphs (auto) Nucleated RBC % PT INR APTT Sodium Potassium Chloride Carbon Dioxide Anion Gap BUN Creatinine Estim Creat Clear Calc Est GFR (MDRD) Af Amer Est GFR (MDRD) Non-Af BUN/Creatinine Ratio Glucose Lactic Acid Calcium Magnesium 2.1 Total Bilirubin Direct Bilirubin AST ALT Alkaline Phosphatase Ammonia Total Protein Albumin Globulin Procalcitonin TSH 1.16 Urine Color [place] Urine Clarity Sl. Cloudy Urine pH 6.0 Ur Specific [place] 1.020 Urine Protein 30 H Urine Glucose (UA) Normal Urine Ketones 5 H Urine Occult Blood 25 H Urine Nitrite Positive H Urine Bilirubin 3 H Urine Urobilinogen 12 H Ur Leukocyte Esterase 500 H Urine RBC 0 SEEN Urine WBC 10-25 SEEN Ur Squamous Epith Cells 0 SEEN Urine Bacteria 2+ Urine Mucus 0 SEEN ABG Data ABG results: ABG 03/10/22 23:18 Specimen Type ART Sample Site L Brach pH 7.64 H* Bicarbonate Actual 18.6 L Total CO2 19 Base Excess -2 O2 Saturation 98 ABG pCO2 17.2 L* ABG pO2 85 O2 Delivery Device Cannula Liter Flow 5.0 Crit Call To/Read Back Yes Blood Gas Notified Whom dr. bonilla Radiography Diagnostic Testing: Clinical Impression(s) from Imaging Studies Brain CT 03/11/22 23:13 IMPRESSION: Chronic periventricular white matter microvascular ischemic changes. Electronically Signed: Amrit Bueno MD at 0:57 EST , Chest/Abdomen/Pelvis CT 03/11/22 23:13 IMPRESSION: There is a stone in the common bile duct measuring 1.2 cm. there is severe dilatation of the common bile duct and intrahepatic biliary tree. The gallbladder has been removed. Sigmoid diverticulosis. Electronically Signed: Amrit Bueno MD at 1:06 EST , Critical Care Time Critical Care Time: Yes Critical care time (excluding procedures): - (Please note critical care time of 33 minutes) Discharge Plan Triage Chief Complaint: Alt LOC Other Complaint: Unresponsive ED Provider: Keegan Bonilla Dx/Rx/DC Orders Clinical Impression: UTI (urinary tract infection), Septicemia, New onset atrial fibrillation, GI (gastrointestinal bleed), Acute hypokalemia Prescriptions: No Action omega-3 fatty acids 1,000 mg capsule 1,000 mg PO BID cyanocobalamin (vitamin B-12) 1,000 mcg/mL solution 1,000 mcg IM QMONTH Label Comments: inject 1 milliliter ( 1000 MCG ) intramuscularly ONCE lidocaine 4 % Adhesive Patch,Medicated 1 patch TOPICAL DAILY Label Comments: ON FOR 12 HRS OFF FOR 12 HRS melatonin 10 mg Tablet 10 mg PO QHS acetaminophen 500 mg Tablet 500 mg PO Q8 PRN (Reason: Pain) tamsulosin 0.4 mg Capsule 0.4 mg PO DAILY ergocalciferol (vitamin D2) [Vitamin D2] 1,250 mcg (50,000 unit) Capsule 1,250 mcg PO QWEEK Primary Care Provider: Care Physician,No Primary Referrals: Care Physician,No Primary [Primary Care Provider] - Disposition Disposition: Acute Care Hospital [facility]
--- NOTE | 2022-03-11 02:26 | ECHOD_ITS ---
Reason For Study: AFIB/FLUTTER Procedure This was a 2D Doppler, Color Flow transthoracic echocardiogram. The study was technically difficult. Due to arrhythmia and PT refused to lie in left lateral decubitus position. PT was uncooperative. Exam performed portable in ICU/CCU. Left Ventricle Normal LV size. Left ventricular systolic function is normal. The estimated ejection fraction is 55 %. Stage 1 diastolic dysfunction. No regional wall motion abnormalities noted. Right Ventricle Normal RV size. Normal systolic function. Atria Normal left atrium. Normal right atrium. Mitral Valve Normal mitral valve. Tricuspid Valve Normal tricuspid valve. Aortic Valve Trisinus/trileaflet aortic valve. Mild focal aortic valve calcification. Peak aortic valve gradient 17 mmHg. Mean aortic valve gradient 9 mmHg. Pulmonic Valve The pulmonic valve is not well visualized. Great Vessels Normal aortic root. The pulmonary artery is normal size. Normal inferior vena cava. Pericardium/Pleural No pericardial effusion. MMode/2D Measurements & Calculations LVIDd: 4.9 cm IVSd: 1.00 cm Ao root diam: 3.8 cm LVIDs: 2.9 cm LVPWd: 1.0 cm LA dimension: 4.1 cm RVDd: 3.0 cm FS: 41.1 % LAV(MOD-bp): 41.6 ml LVAd ap4: 21.8 cm2 LVAd ap2: 20.8 cm2 LAV(MOD-bp) Indexed: 22.6 ml/m2 LVLd ap4: 7.0 cm LVLd ap2: 6.4 cm LAV(MOD-sp2): 39.7 ml EDV(MOD-sp4): 56.6 ml EDV(MOD-sp2): 54.8 ml LAV(MOD-sp4): 44.8 ml EDV(sp4-el): 57.5 ml EDV(sp2-el): 57.0 ml LVAs ap4: 10.4 cm2 LVAs ap2: 10.7 cm2 LVLs ap4: 5.1 cm LVLs ap2: 5.8 cm ESV(MOD-sp4): 18.3 ml ESV(MOD-sp2): 17.6 ml ESV(sp4-el): 18.0 ml ESV(sp2-el): 16.7 ml EF(MOD-sp4): 67.7 % EF(MOD-sp2): 67.9 % EF(sp4-el): 68.7 % SV(MOD-sp4): 38.3 ml SV(MOD-sp2): 37.2 ml SV(sp4-el): 39.5 ml LA A4 area: 17.1 cm2 RA A4 area: 12.8 cm2 Time Measurements MV dec time: 0.29 sec Doppler Measurements & Calculations MV E max jase: 66.8 cm/sec Ao V2 max: 207.5 cm/sec LV V1 max: 127.4 cm/sec MV A max jaes: 123.2 cm/sec Ao max P.3 mmHg LV V1 max P.5 mmHg MV E/A: 0.54 Ao V2 mean: 143.7 cm/sec LV V1 mean P.8 mmHg Ao mean P.5 mmHg LV V1 mean: 93.3 cm/sec Ao V2 VTI: 36.3 cm LV V1 VTI: 22.5 cm AV (velocity ratio): 0.62 PA V2 max: 119.7 cm/sec ECHO/Echo Complete Interpretation Summary Normal LV size. Left ventricular systolic function is normal. The estimated ejection fraction is 55 %. Stage 1 diastolic dysfunction. Ordering Physician: Jamie Powell Referring Physician: URSULA PCP Performed By: Meme Dahl RDCS, RVT
[2022-03-11 03:21] LABS: Reflex Lactate? Y
[2022-03-11] MEDS: 0.9% Normal Saline 1,000 ML 75 ML IV (03:35)
[2022-03-11 05:37] LABS: Absolute Lymphocyte Count 0.41 X10^3/uL (0.83-4.51); Basophil# 0.02 X10^3/uL; Basophil% 0.1 % (0-1); Hematocrit 27.1 % (40-54); Hemoglobin 8.1 g/dL (13.0-16.5); Lymphocyte # 0.41 X10^3/ul (0.83-4.51); Lymphocyte % 2.2 % (19-41); Mean Corp Hgb Conc 29.9 g/dL (32-36); Mean Corpuscular Hgb 25.8 pg (27.0-32.0); Mean Corpuscular Volume 86.3 fL (80-94); Mean Platelet Vol. 8.7 fl (6.2-12.0); Monocyte# 0.48 X10^3/uL; Monocyte% 2.5 % (0-10); NRBC Flagged by Analyzer 0 % (0-5); Neutrophil # 17.95 X10^3/uL (2.7-7.7); Neutrophil % 94.3 % (47-70); POSITIVE DIFFERENTIAL YES; Platelet Count 404 K/mm3 (150-450); RBC Distribution Width CV 15.9 % (11.6-14.6); RBC Distribution Width SD 49.6 fl (35.1-43.9); Red Blood Count 3.14 M/mm3 (4.6-6.2)
[2022-03-11 05:46] LABS: Lactic Acid 1.4 mmol/L (0.4-1.9)
[2022-03-11 05:57] LABS: ALB/GLOB Ratio 0.4 RATIO (0.9-2.4); AST(SGOT) 65 U/L (15-37); Alanine Aminotransfer ALT/SGPT 28 U/L (16-61); Albumin, Serum 1.5 g/dL (3.2-5.0); Alkaline Phosphatase 405 U/L (45-117); Anion Gap 6 (5-15); BUN 24 mg/dL (7-18); BUN/Creat Ratio 18.9 RATIO (10-20); Calcium,Total 7.1 mg/dL (8.5-10.1); Chloride 116 mmol/L (98-107); Creatinine, Serum 1.27 mg/dL (0.70-1.30); EST Glomerular Filtration Rate 58 mL/min (>60); Est Glom Filt Rate - Afr Amer 71 mL/min (>60); Globulin 4.1 g/dL (2.2-4.2); Glucose 117 mg/dL (74-106); Magnesium 1.8 mg/dL (1.6-2.6); Potassium 3.3 mmol/L (3.5-5.1); Protein, Total 5.6 g/dL (6.4-8.2); Sodium Level 146 mmol/L (136-145)
[2022-03-11 06:10] LABS: Phosphorus 3.1 mg/dL (2.5-4.9)
[2022-03-11 06:21] LABS: Differential Indicated SCAN CRITERIA MET
[2022-03-11 06:36] LABS: Differential Comment SCANNED
[2022-03-11 06:58] LABS: International Normalized Ratio 1.5; Prothrombin Time (Protime)PT. 17.9 SECONDS (11.7-14.9)
--- NOTE | 2022-03-11 07:19 | PN.HOSP_ITS ---
Subjective Subjective denies complaints. no abdominal pain. Objective Data Objective Data Vital Signs: Vital Signs Temp Pulse Resp BP Pulse Ox O2 Del Method O2 Flow Rate 36.8 C 79 17 117/63 100 Room Air 2 03/11/22 03:11 03/11/22 06:00 03/11/22 06:00 03/11/22 06:00 03/11/22 06:00 03/11/22 06:00 03/11/22 02:28 Oxygen Flow Rate (L/min) 2 Oxygen Delivery Method Room Air Weight: 65.9 kg Body Mass Index (BMI) 20.8 Intake & Output: Intake and Output for Last 24 Hours 03/09/22 03/10/22 03/11/22 23:59 23:59 23:59 Intake Total 2211 / 2212 Balance 2211 / 221 Lab / Micro Data Result Diagrams: 03/11/22 11:20 03/11/22 05:15 Labs: Laboratory Results - last 24 hr 03/10/22 23:04: WBC 15.8 H, RBC 4.25 L, Hgb 11.0 L, Hct 36.3 L, MCV 85.4, MCH 25.9 L, MCHC 30.3 L, RDW Std Deviation 49.1 H, RDW Coeff of Sekou 15.8 H, Plt Count 560 H, MPV 8.8, Immature Gran % (Auto) 1.200 H, Neut % (Auto) 90.9 H, Lymph % (Auto) 4.5 L, [place] % (Auto) 3.3, Eos % (Auto) 0.0, Baso % (Auto) 0.1, Absolute Neuts (auto) 14.4 H, Absolute Lymphs (auto) 0.71 L, Nucleated RBC % 0 03/10/22 23:04: Sodium 143, Potassium 3.0 L, Chloride 106, Carbon Dioxide 26.0, Anion Gap 11, BUN 25 H, Creatinine 1.62 H, Estim Creat Clear Calc 36.30, Est GFR (MDRD) Af Amer 53 L, Est GFR (MDRD) Non-Af 44 L, BUN/Creatinine Ratio 15.4, Glucose 179 H, Calcium 8.7, Total Bilirubin 2.30 H, Direct Bilirubin 2.01 H, AST 82 H, ALT 33, Alkaline Phosphatase 547 H, Total Protein 7.7, Albumin 2.0 L, Globulin 5.7 H 03/10/22 23:04: Ammonia < 10.0 L 03/10/22 23:04: Lactic Acid 3.5 H* 03/10/22 23:04: PT 14.9, INR 1.2, APTT 31.3 03/10/22 23:04: Procalcitonin 1.29 H 03/10/22 23:04: Magnesium 2.1, TSH 1.16 03/11/22 00:51: Urine Color Shaina, Urine Clarity Sl. Cloudy, Urine pH 6.0, Ur Specific [place] 1.020, Urine Protein 30 H, Urine Glucose (UA) Normal, Urine Ketones 5 H, Urine Occult Blood 25 H, Urine Nitrite Positive H, Urine Bilirubin 3 H, Urine Urobilinogen 12 H, Ur Leukocyte Esterase 500 H, Urine RBC 0 SEEN, Urine WBC 10-25 SEEN, Ur Squamous Epith Cells 0 SEEN, Urine Bacteria 2+, Urine Mucus 0 SEEN 03/11/22 05:15: WBC 19.0 H, RBC 3.14 L, Hgb 8.1 L, Hct 27.1 L, MCV 86.3, MCH 25.8 L, MCHC 29.9 L, RDW Std Deviation 49.6 H, RDW Coeff of Sek[place] 15.9 H, Plt Count 404, MPV 8.7, Immature Gran % (Auto) 0.900, Neut % (Auto) 94.3 H, Lymph % (Auto) 2.2 L, [place]ick[place] % (Auto) 2.5, Eos % (Auto) 0.0, Baso % (Auto) 0.1, Absolute Neuts (auto) 18.0 H, Absolute Lymphs (auto) 0.41 L, Nucleated RBC % 0, Differential Comment SCANNED 03/11/22 05:15: Sodium 146 H, Potassium 3.3 L, Chloride 116 H, Carbon Dioxide 24.0, Anion Gap 6, BUN 24 H, Creatinine 1.27, Estim Creat Clear Calc 45.40, Est GFR (MDRD) Af Amer 71, Est GFR (MDRD) Non-Af 58 L, BUN/Creatinine Ratio 18.9, Glucose 117 H, Calcium 7.1 L, Magnesium 1.8, Total Bilirubin 1.90 H, AST 65 H, ALT 28, Alkaline Phosphatase 405 H, Total Protein 5.6 L, Albumin 1.5 L, Globulin 4.1, Albumin/Globulin Ratio 0.4 L 03/11/22 05:15: PT 17.9 H, INR 1.5 03/11/22 05:15: Phosphorus 3.1 03/11/22 05:15: Lactic Acid 1.4 Micro: Microbiology 03/11/22 00:51 Stool Stool Occult Blood (FLYNN) - Final Occult Blood Positive ABG Data ABG results: ABG 03/10/22 23:18 Specimen Type ART Sample Site L Brach pH 7.64 H* Bicarbonate Actual 18.6 L Total CO2 19 Base Excess -2 O2 Saturation 98 ABG pCO2 17.2 L* ABG pO2 85 O2 Delivery Device Cannula Liter Flow 5.0 Crit Call To/Read Back Yes Blood Gas Notified Whom dr. bonilla Radiography Diagnostic Testing: Radiology Impression Brain CT 03/11/22 23:13 IMPRESSION: Chronic periventricular white matter microvascular ischemic changes. Electronically Signed: Amrit Bueno MD at 0:57 EST , Chest/Abdomen/Pelvis CT 03/11/22 23:13 IMPRESSION: There is a stone in the common bile duct measuring 1.2 cm. there is severe dilatation of the common bile duct and intrahepatic biliary tree. The gallbladder has been removed. Sigmoid diverticulosis. Electronically Signed: Amrit Bueno MD at 1:06 EST , Physical Exam Const no apparent distress HEENT HEENT Narrative: left eye lid contracted and eye opened. Resp normal respiratory effort, no retractions, no use of accessory muscles and clear to auscultation bilaterally Cardio regular rate, regular rhythm, S1 normal heart sound and S2 normal heart sound GI normal to inspection, nondistended, normoactive bowel sounds and soft to palpation Skin Skin Narrative: rash tissue over forehead Assessment & Plan Assessment/Plan (1) Sepsis: QUALIFIERS: Acute renal failure type: unspecified Sepsis acute organ dysfunction status: with acute organ dysfunction Sepsis type: sepsis due to unspecified organism Severe sepsis acute organ dysfunction type: acute renal failure Severe sepsis shock status: with septic shock Qualified Code(s): A41.9 - Sepsis, unspecified organism; R65.21 - Severe sepsis with septic shock; N17.9 - Acute kidney failure, unspecified PLAN: Resolved with IVF 2/2 choledocholithiasis possible cholangitis DC CTX. Start pip/tazo (2) Choledocholithiasis: PLAN: Recurrent (had an ERCP in August for same) 1.2 cm stone in CBD. s/p cholecsytectomy GI consult NPO (3) Atrial fibrillation: QUALIFIERS: Atrial fibrillation type: unspecified Qualified Code(s): I48.91 - Unspecified atrial fibrillation PLAN: EKG and telemetry strip showed atrial fibrillation with controlled rates. Likely secondary to sepsis. Received IV fluids. Potassium was 3.0, replaced. Magnesium was 2.1. Last echocardiogram on file was on 05/14/2021. Echocardiogram at that time showed estimated ejection fraction 55 to 60%. Normal left atrium. Normal right atrium. Repeat echocardiogram Patient is not a candidate of anticoagulation as A. fib may be transient and secondary sepsis and also patient has evidence of GI bleed. (4) UTI (urinary tract infection): PLAN: ruled out. Only 10-25 WBCs (5) Acute hypokalemia: PLAN: Ongoing replace check Mag (6) AIYANA (acute kidney injury): PLAN: Improving w IVF Likely 2/2 volume depletion (7) Metabolic encephalopathy: PLAN: 2/2 above in pt with dementia (8) GI (gastrointestinal bleed): PLAN: IV PPI EGD to eval (9) Acute blood loss anemia: PLAN: Hg dropped from 11 to 8.2 PLAN: Plan DVT prophylaxis: Not a candidate of chemical thromboprophylaxis secondary to coffee-ground emesis. SCDs ordered. Charges/Coding Visit Charges Inpatient E&M: 61004 Subs Hosp L2
[2022-03-11] MEDS: 0.9% Saline Lock 10 ML Syringe IV (07:42)
--- NOTE | 2022-03-11 08:23 | CON.PCM.CC_ITS ---
Assessment & Plan Assessment/Plan (1) Sepsis: QUALIFIERS: Sepsis type: sepsis due to unspecified organism Sepsis acute organ dysfunction status: with acute organ dysfunction Severe sepsis acute organ dysfunction type: acute renal failure Acute renal failure type: unspecified Severe sepsis shock status: with septic shock Qualified Code(s): A41.9 - Sepsis, unspecified organism; R65.21 - Severe sepsis with septic shock; N17.9 - Acute kidney failure, unspecified (2) Metabolic encephalopathy: (3) Atrial fibrillation: QUALIFIERS: Atrial fibrillation type: unspecified Qualified Code(s): I48.91 - Unspecified atrial fibrillation PLAN: Plan RECOMMENDATIONS: 1. Continue empiric antibiotics pending cultures 2. Fluid boluses (LR) as necessary for hypotension 3. Likely okay to leave the intensive care unit 4. Delirium protocol 5. Hemodynamically stable on room air. Will sign off from a critical care perspective IMPRESSIONS: 1. Sepsis Endorgan damage indicated by acute kidney injury and mental status changes on presentation. Unclear etiology at this time. Patient does have choledocholithiasis with a distended gallbladder duct. GI has been consulted. Patient also has a UA that is suggestive of a possible UTI. Agree with empiric antibiotics as Zosyn should cover both etiologies. Urine culture is pending. No indication for pressors at this time. Patient is tolerating room air with previously normal EF, so likely okay to challenge with fluids if necessary for hypotension. Would recommend lactated Ringer's to avoid hyperchloremic metabolic acidosis. 2. A. fib/chronic diastolic CHF Patient's rate is well controlled at this time. Patient is not a candidate for anticoagulation given guaiac positive stools. Repeat echocardiogram has been ordered. Patient does not have any findings on exam suggestive of acute exacerbation. Rate control will be important to avoid respiratory complications. 3. Acute kidney injury/hypokalemia/hypernatremia/hyperchloremia Improving with volume resuscitation. Patient's baseline appears to be approximately 0.7 and presented with a creatinine of 1.62. No indication for renal replacement therapy. Patient is requiring ongoing potassium repletion. We will transition patient to LR for ongoing fluid maintenance to avoid hyperchloremic metabolic acidosis. 4. Metabolic encephalopathy/advanced age/anemia Complicates care, management, recovery and prognosis. Patient carries a diagnosis of dementia and baseline is not clear at this time. Patient does have some findings consistent with GI blood losses. GI has been consulted. Patient will be at high risk for development of delirium. HPI Consult Data Date of Consult: 03/11/22 HPI Narrative Reason for Consultation: Sepsis HPI Narrative: JERRICA ARGUETA is a 76 M, with past medical history listed below, who presents to [facility] 03/11/2022 secondary to change in mental status. Patient reportedly was found unresponsive with bouts of emesis that may have contained blood. EMS had reported the patient was obtunded on arrival, but did have spontaneous respirations. Patient was resistant from being moved from his right side without following any commands. Patient did not have hypoglycemia, so patient was transferred to the ER for further evaluation. On arrival to the ER, patient was afebrile, but tachypneic at 25 breaths/min on 4 L nasal cannula. Patient was noted to be hypotensive at 55/44, but did respond to fluid resuscitation. Laboratory work-up showed a white blood cell count of 15.8, hemoglobin of 11 and platelets of 560. Chemistry showed a potassium of 3, creatinine of 1.62 and glucose of 179. Ammonia was within anirudh l limits, but bilirubin and alkaline phosphatase were elevated. Coagulation studies were within normal limits and patient was noted to have a lactic acid of 3.5. Procalcitonin was elevated at 1.29. UA was suggestive of a UTI. Arterial blood gas showed acute respiratory alkalosis. A CT of the head showed chronic changes. CT of the chest abdomen and pelvis shows severe dilation of the common bile duct and intrahepatic tree. Since arrival to the intensive care unit, patient has done well. Patient has been weaned to room air. Patient has not required any pressors or further fluid boluses. Patient has little recollection of yesterday, but states he feels okay today. Patient is not reporting any nausea or vomiting. Patient has not had any dysuria. Patient is a relatively poor historian about events surrounding decompensation. [facility] Medical History Arthritis Atherosclerotic heart disease of [place] coronary artery without angina pectoris BMI 29.0-29.9,adult Cancer Chronic kidney disease, stage 2 (mild) Exertional dyspnea Fatty liver Gastric reflux Generalized pruritus High cholesterol History of echocardiogram History of pain when walking Hypertension Hypokalemia Low vitamin B12 level Lymphoma Mixed hyperlipidemia Restless legs Stroke/cerebrovascular accident Syncope Walker as ambulation aid Home Medications acetaminophen 500 mg tablet 500 mg PO Q8 PRN Pain 09/05/21 [History Last Taken Unknown] melatonin 10 mg tablet 10 mg PO QHS Sleep 09/05/21 [History Last Taken Unknown] tamsulosin 0.4 mg capsule 0.4 mg PO DAILY Bladder Spasm 09/05/21 [History Last Taken Unknown] hydrocodone-acetaminophen 5-325mg 5mg-325mg 1 tab PO Q8 pain 03/11/22 [History Last Taken Unknown] promethazine 25 mg/mL injection solution 25 mg IM Q8 nausea 03/11/22 [History Last Taken Unknown] sertraline 25 mg tablet (Zoloft) 25 mg PO DAILY Depression 03/11/22 [History Last Taken Unknown] Allergy/AdvReac Type Severity Reaction Status Date / Time allopurinol Allergy Intermediate UNK Verified 05/13/21 11:28 Family History Father Emphysema of lung COPD (chronic obstructive pulmonary disease) Mother Cancer Surgical History History of cholecystectomy Social History Smoking Status: Never smoker Electronic Cigarette Use: not used second hand exposure: No alcohol intake: never substance use type: does not use ROS ROS Narrative Poor historian Physical Exam Const alert and no apparent distress Constitutional Narrative: Oriented x2 General Appearance: cooperative Orientation / Consciousness: oriented to person HEENT hearing grossly normal bilaterally HEENT Narrative: Large skin graft noted over left thigh that appears to be healing okay Nose: external nose normal Mouth: oral and palatal mucosa normal Eyes conjunctivae normal General Eye: normal appearance of both eyes Neck full ROM General: normal visual inspection Lymph Lymphatic: no lymphadenopathy noted Chest inspection of chest normal Chest: symmetrical chest wall rise Resp normal respiratory effort Effort and Inspection: able to speak in complete sentences Auscultation: Negative for rales, rhonchi or wheezes Cardio regular rate, S1 normal heart sound, S2 normal heart sound, no murmurs, no rub and no gallops Rhythm: abnormal rhythm irregularly irregular GI soft to palpation Inspection: abdominal distention Extremity General Extremity: Negative for clubbing or edema Skin Skin Narrative: Skin graft Neuro moves all extremities Neuro Narrative: Preferentially stays on the right side Speech: speech normal Psych Mood & Affect: flat affect Lab / Micro Data Attestation: I reviewed the patient's lab results. Result Diagrams: 03/11/22 11:20 03/11/22 05:15 Labs: Laboratory Results - last 24 hr 03/10/22 23:04: WBC 15.8 H, RBC 4.25 L, Hgb 11.0 L, Hct 36.3 L, MCV 85.4, MCH 25.9 L, MCHC 30.3 L, RDW Std Deviation 49.1 H, RDW Coeff of Sekou 15.8 H, Plt Count 560 H, MPV 8.8, Immature Gran % (Auto) 1.200 H, Neut % (Auto) 90.9 H, Lymph % (Auto) 4.5 L, Barry % (Auto) 3.3, Eos % (Auto) 0.0, Baso % (Auto) 0.1, Absolute Neuts (auto) 14.4 H, Absolute Lymphs (auto) 0.71 L, Nucleated RBC % 0 03/10/22 23:04: Sodium 143, Potassium 3.0 L, Chloride 106, Carbon Dioxide 26.0, Anion Gap 11, BUN 25 H, Creatinine 1.62 H, Estim Creat Clear Calc 36.30, Est GFR (MDRD) Af Amer 53 L, Est GFR (MDRD) Non-Af 44 L, BUN/Creatinine Ratio 15.4, Glucose 179 H, Calcium 8.7, Total Bilirubin 2.30 H, Direct Bilirubin 2.01 H, AST 82 H, ALT 33, Alkaline Phosphatase 547 H, Total Protein 7.7, Albumin 2.0 L, Globulin 5.7 H 03/10/22 23:04: Ammonia < 10.0 L 03/10/22 23:04: Lactic Acid 3.5 H* 03/10/22 23:04: PT 14.9, INR 1.2, APTT 31.3 03/10/22 23:04: Procalcitonin 1.29 H 03/10/22 23:04: Magnesium 2.1, TSH 1.16 03/11/22 00:51: Urine Color Shaina, Urine Clarity Sl. Cloudy, Urine pH 6.0, Ur Specific [place] 1.020, Urine Protein 30 H, Urine Glucose (UA) Normal, Urine Ketones 5 H, Urine Occult Blood 25 H, Urine Nitrite Positive H, Urine Bilirubin 3 H, Urine Urobilinogen 12 H, Ur Leukocyte Esterase 500 H, Urine RBC 0 SEEN, Urine WBC 10-25 SEEN, Ur Squamous Epith Cells 0 SEEN, Urine Bacteria 2+, Urine Mucus 0 SEEN 03/11/22 05:15: WBC 19.0 H, RBC 3.14 L, Hgb 8.1 L, Hct 27.1 L, MCV 86.3, MCH 25.8 L, MCHC 29.9 L, RDW Std Deviation 49.6 H, RDW Coeff of Sekou 15.9 H, Plt Count 404, MPV 8.7, Immature Gran % (Auto) 0.900, Neut % (Auto) 94.3 H, Lymph % (Auto) 2.2 L, Barry % (Auto) 2.5, Eos % (Auto) 0.0, Baso % (Auto) 0.1, Absolute Neuts (auto) 18.0 H, Absolute Lymphs (auto) 0.41 L, Nucleated RBC % 0, Differential Comment SCANNED 03/11/22 05:15: Sodium 146 H, Potassium 3.3 L, Chloride 116 H, Carbon Dioxide 24.0, Anion Gap 6, BUN 24 H, Creatinine 1.27, Estim Creat Clear Calc 45.40, Est GFR (MDRD) Af Amer 71, Est GFR (MDRD) Non-Af 58 L, BUN/Creatinine Ratio 18.9, Glucose 117 H, Calcium 7.1 L, Magnesium 1.8, Total Bilirubin 1.90 H, AST 65 H, ALT 28, Alkaline Phosphatase 405 H, Total Protein 5.6 L, Albumin 1.5 L, Globulin 4.1, Albumin/Globulin Ratio 0.4 L 03/11/22 05:15: PT 17.9 H, INR 1.5 03/11/22 05:15: Phosphorus 3.1 03/11/22 05:15: Lactic Acid 1.4 Micro: Microbiology 03/11/22 00:51 Stool Stool Occult Blood (FLYNN) - Final Occult Blood Positive ABG Data ABG results: ABG 03/10/22 23:18 Specimen Type ART Sample Site L Brach pH 7.64 H* Bicarbonate Actual 18.6 L Total CO2 19 Base Excess -2 O2 Saturation 98 ABG pCO2 17.2 L* ABG pO2 85 O2 Delivery Device Cannula Liter Flow 5.0 Crit Call To/Read Back Yes Blood Gas Notified Whom dr. bonilla Radiology Impression Brain CT 03/11/22 23:13 IMPRESSION: Chronic periventricular white matter microvascular ischemic changes. Electronically Signed: Amrit Bueno MD at 0:57 EST , Chest/Abdomen/Pelvis CT 03/11/22 23:13 IMPRESSION: There is a stone in the common bile duct measuring 1.2 cm. there is severe dilatation of the common bile duct and intrahepatic biliary tree. The gallbladder has been removed. Sigmoid diverticulosis. Electronically Signed: Amrit Bueno MD at 1:06 EST , Charges/Coding Visit Charges Inpatient E&M: 88575 Init Hosp L2
[2022-03-11] MEDS: Lactated Ringers 1,000 ML 75 ML IV ×2 (09:20→22:09)
--- NOTE | 2022-03-11 11:04 | EX.PCM.CON.G ---
HPI Consult Data Date of Consult: 03/11/22 HPI Narrative Reason for Consultation: GI bleed HPI Narrative: JERRICA ARGUETA, is a?76 M who lives at the care home presenting because he was minimally responsive at the care home.? Reportedly at baseline patient is Alert and oriented 1-2.? He recently got over a longstanding shingles infection involving his head. This resulted in him scratching his head and removing a lot of the skin from the top of his head extending past his nose. Almost all history is obtained from the chart because of patient's mental status. He is known to GI service due to his history of choledocholithiasis in which he underwent an ERCP approximately 6 months ago with multiple stones that were removed. At the care home reported patient had a coffee-ground emesis on his shirt and in bed.? Per EMS patient was not moving his right side. However, at the emergency department patient was found to spontaneously moving all extremities at least with pain and had no focal deficits.? Initial blood pressure was hypotensive and patient responded to fluids.? At the emergency department patient also found to have dark brown emesis on his shirt . Emergency department doctor reports brown stool on rectal examination that returned occult positive.? Reportedly there were no hemorrhoids or masses At the ED patient was found to have A. fib.? Also abdomen pelvis CT which showed a biliary stone.? His urine was found to be abnormal. The CT scan also shows a very large sliding hiatal hernia with gastric contents likely in the gastric cardia. Since being in the ICU he has been hemodynamically stable and his last hemoglobin was 9.1. [facility] Medical History Arthritis Atherosclerotic heart disease of lime coronary artery without angina pectoris BMI 29.0-29.9,adult Cancer Chronic kidney disease, stage 2 (mild) Exertional dyspnea Fatty liver Gastric reflux Generalized pruritus High cholesterol History of echocardiogram History of pain when walking Hypertension Hypokalemia Low vitamin B12 level Lymphoma Mixed hyperlipidemia Restless legs Stroke/cerebrovascular accident Syncope Walker as ambulation aid Home Medications acetaminophen 500 mg tablet 500 mg PO Q8 PRN Pain 09/05/21 [History Last Taken Unknown] melatonin 10 mg tablet 10 mg PO QHS Sleep 09/05/21 [History Last Taken Unknown] tamsulosin 0.4 mg capsule 0.4 mg PO DAILY Bladder Spasm 09/05/21 [History Last Taken Unknown] hydrocodone-acetaminophen 5-325mg 5mg-325mg 1 tab PO Q8 pain 03/11/22 [History Last Taken Unknown] promethazine 25 mg/mL injection solution 25 mg IM Q8 nausea 03/11/22 [History Last Taken Unknown] sertraline 25 mg tablet (Zoloft) 25 mg PO DAILY Depression 03/11/22 [History Last Taken Unknown] Allergy/AdvReac Type Severity Reaction Status Date / Time allopurinol Allergy Intermediate UNK Verified 05/13/21 11:28 Family History Father Emphysema of lung COPD (chronic obstructive pulmonary disease) Mother Cancer Surgical History History of cholecystectomy Social History Smoking Status: Never smoker Electronic Cigarette Use: not used second hand exposure: No alcohol intake: never substance use type: does not use ROS ROS Narrative Poor historian Physical Exam Const alert and no apparent distress Constitutional Narrative: Oriented x2 General Appearance: cooperative Orientation / Consciousness: oriented to person HEENT hearing grossly normal bilaterally HEENT Narrative: Large skin graft noted over left thigh that appears to be healing okay Nose: external nose normal Mouth: oral and palatal mucosa normal Eyes conjunctivae normal General Eye: normal appearance of both eyes Neck full ROM General: normal visual inspection Lymph Lymphatic: no lymphadenopathy noted Chest inspection of chest normal Chest: symmetrical chest wall rise Resp normal respiratory effort Effort and Inspection: able to speak in complete sentences Auscultation: Negative for rales, rhonchi or wheezes Cardio regular rate, S1 normal heart sound, S2 normal heart sound, no murmurs, no rub and no gallops Rhythm: abnormal rhythm irregularly irregular GI soft to palpation Inspection: abdominal distention Extremity General Extremity: Negative for clubbing or edema Skin Skin Narrative: Skin graft Neuro moves all extremities Neuro Narrative: Preferentially stays on the right side Speech: speech normal Psych Mood & Affect: flat affect Lab / Micro Data Result Diagrams: 03/11/22 05:15 03/11/22 05:15 Labs: Laboratory Results - last 24 hr 03/10/22 23:04: WBC 15.8 H, RBC 4.25 L, Hgb 11.0 L, Hct 36.3 L, MCV 85.4, MCH 25.9 L, MCHC 30.3 L, RDW Std Deviation 49.1 H, RDW Coeff of Sekou 15.8 H, Plt Count 560 H, MPV 8.8, Immature Gran % (Auto) 1.200 H, Neut % (Auto) 90.9 H, Lymph % (Auto) 4.5 L, [place] % (Auto) 3.3, Eos % (Auto) 0.0, Baso % (Auto) 0.1, Absolute Neuts (auto) 14.4 H, Absolute Lymphs (auto) 0.71 L, Nucleated RBC % 0 03/10/22 23:04: Sodium 143, Potassium 3.0 L, Chloride 106, Carbon Dioxide 26.0, Anion Gap 11, BUN 25 H, Creatinine 1.62 H, Estim Creat Clear Calc 36.30, Est GFR (MDRD) Af Amer 53 L, Est GFR (MDRD) Non-Af 44 L, BUN/Creatinine Ratio 15.4, Glucose 179 H, Calcium 8.7, Total Bilirubin 2.30 H, Direct Bilirubin 2.01 H, AST 82 H, ALT 33, Alkaline Phosphatase 547 H, Total Protein 7.7, Albumin 2.0 L, Globulin 5.7 H 03/10/22 23:04: Ammonia < 10.0 L 03/10/22 23:04: Lactic Acid 3.5 H* 03/10/22 23:04: PT 14.9, INR 1.2, APTT 31.3 03/10/22 23:04: Procalcitonin 1.29 H 03/10/22 23:04: Magnesium 2.1, TSH 1.16 03/11/22 00:51: Urine Color Shaina, Urine Clarity Sl. Cloudy, Urine pH 6.0, Ur Specific [place] 1.020, Urine Protein 30 H, Urine Glucose (UA) Normal, Urine Ketones 5 H, Urine Occult Blood 25 H, Urine Nitrite Positive H, Urine Bilirubin 3 H, Urine Urobilinogen 12 H, Ur Leukocyte Esterase 500 H, Urine RBC 0 SEEN, Urine WBC 10-25 SEEN, Ur Squamous Epith Cells 0 SEEN, Urine Bacteria 2+, Urine Mucus 0 SEEN 03/11/22 05:15: WBC 19.0 H, RBC 3.14 L, Hgb 8.1 L, Hct 27.1 L, MCV 86.3, MCH 25.8 L, MCHC 29.9 L, RDW Std Deviation 49.6 H, RDW Coeff of Sekou 15.9 H, Plt Count 404, MPV 8.7, Immature Gran % (Auto) 0.900, Neut % (Auto) 94.3 H, Lymph % (Auto) 2.2 L, Randolph % (Auto) 2.5, Eos % (Auto) 0.0, Baso % (Auto) 0.1, Absolute Neuts (auto) 18.0 H, Absolute Lymphs (auto) 0.41 L, Nucleated RBC % 0, Differential Comment SCANNED 03/11/22 05:15: Sodium 146 H, Potassium 3.3 L, Chloride 116 H, Carbon Dioxide 24.0, Anion Gap 6, BUN 24 H, Creatinine 1.27, Estim Creat Clear Calc 45.40, Est GFR (MDRD) Af Amer 71, Est GFR (MDRD) Non-Af 58 L, BUN/Creatinine Ratio 18.9, Glucose 117 H, Calcium 7.1 L, Magnesium 1.8, Total Bilirubin 1.90 H, AST 65 H, ALT 28, Alkaline Phosphatase 405 H, Total Protein 5.6 L, Albumin 1.5 L, Globulin 4.1, Albumin/Globulin Ratio 0.4 L 03/11/22 05:15: PT 17.9 H, INR 1.5 03/11/22 05:15: Phosphorus 3.1 03/11/22 05:15: Lactic Acid 1.4 Micro: Microbiology 03/11/22 00:51 Stool Stool Occult Blood (FLYNN) - Final Occult Blood Positive ABG Data ABG results: ABG 03/10/22 23:18 Specimen Type ART Sample Site L Brach pH 7.64 H* Bicarbonate Actual 18.6 L Total CO2 19 Base Excess -2 O2 Saturation 98 ABG pCO2 17.2 L* ABG pO2 85 O2 Delivery Device Cannula Liter Flow 5.0 Crit Call To/Read Back Yes Blood Gas Notified Whom dr. bonilla Radiology Impression Echocardiogram 03/11/22 02:26 Interpretation Summary Normal LV size. Left ventricular systolic function is normal. The estimated ejection fraction is 55 %. Stage 1 diastolic dysfunction. Ordering Physician: Jamie Powell Referring Physician: URSULA PCP Performed By: Meme Dahl, RDCS, RVT Brain CT 03/11/22 23:13 IMPRESSION: Chronic periventricular white matter microvascular ischemic changes. Electronically Signed: Amrit Bueno MD at 0:57 EST , Chest/Abdomen/Pelvis CT 03/11/22 23:13 IMPRESSION: There is a stone in the common bile duct measuring 1.2 cm. there is severe dilatation of the common bile duct and intrahepatic biliary tree. The gallbladder has been removed. Sigmoid diverticulosis. Electronically Signed: Amrit Bueno MD at 1:06 EST , Assessment & Plan Assessment/Plan (1) Choledocholithiasis: PLAN: Status post previous ERCP with stone removal and stent placement. I did not see a stent that was present on a CT scan abdomen pelvis. He will likely need to have a repeat ERCP with cholangioscopy and lithotripsy due to the size of the new common bile duct stone that was seen in the distal common bile duct. There is also another common bile duct stone that I see in the mid to proximal common bile duct. He has a very large cystic duct remnant that is behaving like a primary biliary duct that is likely contributing to his choledocholithiasis. Unless his course changes the ERCP will be on Sunday. Continue IV antibiotics and he can have clear liquid diet. (2) GI (gastrointestinal bleed): PLAN: The differential diagnosis for possible upper GI bleed would be his large sliding hiatal hernia with, Shayy-Sexton tear, Americo's erosions, peptic ulcer disease after recently being treated with steroids and acyclovir. Recommend PPI IV every 12 hours and when he undergoes ERCP we will do EGD to evaluate his upper GI tract. If his hemoglobin continues to trend down we may need to do a prior to doing ERCP. Charges/Coding Visit Charges Inpatient E&M: 01288 Init Hosp L3
--- NOTE | 2022-03-11 11:06 | CASEMGMT ---
Social Work SW reviewed chart, pt is here from [facility]. SW called daughter Yasmin Duran, she states pt normally is in their assisted living, but has been on the skilled side since getting shingles. Daughter confirms plan will be for pt to return to [facility], so no SNF list is needed. SW explained it is anticipated pt will need a new precert to go back to the long-term since he is there skilled. SW asked about POA, daughter confirms she is POA. She states the long-term should have them on file, if the long-term does not she can send them to . She states she will be here tomorrow, is out of town today. SW sent updates to [facility] via [employer]. ROBERTA also requested via [employer] that POA papers be faxed to ICU. ROBERTA called as well, they do not have copies of the POA papers at the nurses' station, the nurse thought they may have them in the office. Plan will be for pt to return to [facility] when able, new precert needed. If [facility] cannot send over POA papers, SW to check back w/daughter. AIYANA Byrne
[2022-03-11] MEDS: Sertraline 50 MG Tablet 25 MG PO (11:10)
[2022-03-11] MEDS: Tamsulosin HCl 0.4 MG Capsule PO (11:10)
[2022-03-11 11:22] LABS: Hematocrit 26.2 % (40-54); Hemoglobin 8.2 g/dL (13.0-16.5)
--- NOTE | 2022-03-11 11:29 | CASEMGMT ---
Social Work As per daughter, she is POA. SW sent a message via [facility] to [facility] requesting the documents be faxed to the hospital. Daughter had said if the hospital is not able to get the documents to let her know and she can fax them over. AIYANA Byrne
[2022-03-11] MEDS: Acetaminophen 500 MG Tablet 1000 MG PO (17:59)
[2022-03-11] MEDS: DiphenhydrAMINE 25 MG Capsule PO (18:00)
[2022-03-11 18:55] LABS: Hemoglobin 8.2 g/dL (13.0-16.5)
--- NOTE | 2022-03-11 23:13 | CT_ITS ---
INDICATION: altered mental status EXAMINATION: CT BRAIN - CT Head or Brain W/O Contrast Injection TECHNIQUE: Multiple axial images were obtained of the head without intravenous contrast. A radiation dose optimization technique was used for this scan. IV Contrast dosage and agent: None. COMPARISON: FINDINGS: BRAIN PARENCHYMA: No intra- or extra-axial hemorrhage. No evidence of acute infarct. No intracranial mass or mass effect. Chronic periventricular white matter microvascular ischemic changes. Posterior fossa structures are unremarkable. CSF SPACES: Appropriate for age. No hydrocephalus. Basal cisterns are patent. CALVARIUM, SKULL BASE, PARANASAL SINUSES AND MASTOID AIR CELLS: Clear. No discrete lytic or blastic abnormalities. ORBITS: Both globes, extraocular muscles, optic nerves and retrobulbar fat appear unremarkable. ASPECTS Score for Acute Strokes: 10 CT/Brain/Head without Contrast IMPRESSION: Chronic periventricular white matter microvascular ischemic changes. Electronically Signed: Amrit Bueno MD at 0:57 EST ,
--- NOTE | 2022-03-11 23:13 | CT_ITS ---
STUDY: CT CHEST, ABDOMEN T PELVIS WITH CONTRAST REASON FOR EXAM: Male, 76 years old. GI bleed RADIATION DOSAGE (If Supplied By Facility): CTDIvol = ( 14.72 ) mGy, DLP = ( 978.22 ) mGycm TECHNIQUE: Transaxial imaging was performed following intravenous administration of IV 75mL Isovue-370. Individualized dose optimization techniques were used for this CT. COMPARISON: No relevant priors. FINDINGS: CHEST The lungs are normal. There is no demonstrated pleural abnormality. Normal heart and pericardium. Normal mediastinum. Normal hilar regions. Normal unenhanced pulmonary arteries. Normal aorta arch and descending thoracic aorta. Normal osseous structures. There is no demonstrated abnormality of the visualized upper abdomen. ABDOMEN The visualized lung bases are unremarkable. The visualized portions of the heart are within normal limits. Normal liver. There is a stone in the common bile duct measuring 1.2 cm. there is severe dilatation of the common bile duct and intrahepatic biliary tree. The gallbladder has been removed. Sigmoid diverticulosis. Normal spleen. Normal pancreas. Normal bilateral adrenal glands. Normal right kidney. Normal left kidney. Normal visualized stomach. Normal small intestine. There are multiple colonic diverticula consistent with diverticulosis. The appendix is visualized and appears normal. Normal abdominal aorta. Normal inferior vena cava. Normal retroperitoneum. Normal abdominal wall. Normal osseous structures. PELVIS Normal urinary bladder. Normal visualized small intestine. Normal visualized colon. There is no pelvic fluid. There is no pelvic lymphadenopathy or mass lesion. Normal visualized pelvic arteries. Normal abdominal wall. There are diffuse degenerative changes of the visualized lumbar spine. Old compression fracture of L3. CT/CT Chest, Abd, Pel w/Contrast IMPRESSION: There is a stone in the common bile duct measuring 1.2 cm. there is severe dilatation of the common bile duct and intrahepatic biliary tree. The gallbladder has been removed. Sigmoid diverticulosis. Electronically Signed: Amrit Bueno MD at 1:06 EST ,
[2022-03-12] MEDS: Acetaminophen 500 MG Tablet 1000 MG PO (01:08)
[2022-03-12 03:50] VITALS: BP 103/46; PULSE 67; RESP 17; TEMP 36.7; O2SAT 98
[2022-03-12 06:14] LABS: Absolute Lymphocyte Count 0.63 X10^3/uL (0.83-4.51); Absolute Neutrophil Count 10.3 X10^3/uL (2.0-7.7); Basophil# 0.04 X10^3/uL; Basophil% 0.3 % (0-1); Eosinophil# 0.13 X10^3/uL; Eosinophils% 1.1 % (0-5); Hematocrit 23.8 % (40-54); Hemoglobin 7.2 g/dL (13.0-16.5); Lymphocyte # 0.63 X10^3/ul (0.83-4.51); Lymphocyte % 5.5 % (19-41); Mean Corp Hgb Conc 30.3 g/dL (32-36); Mean Corpuscular Hgb 25.9 pg (27.0-32.0); Mean Corpuscular Volume 85.6 fL (80-94); Mean Platelet Vol. 8.9 fl (6.2-12.0); Monocyte# 0.34 X10^3/uL; NRBC Flagged by Analyzer 0 % (0-5); Neutrophil # 10.25 X10^3/uL (2.7-7.7); Neutrophil % 89.8 % (47-70); Platelet Count 304 K/mm3 (150-450); RBC Distribution Width CV 16.1 % (11.6-14.6); RBC Distribution Width SD 50.9 fl (35.1-43.9); Red Blood Count 2.78 M/mm3 (4.6-6.2); White Blood Count 11.4 K/mm3 (4.4-11.0)
[2022-03-12 06:42] LABS: Anion Gap 7 (5-15); BUN 23 mg/dL (7-18); BUN/Creat Ratio 20.5 RATIO (10-20); Calcium,Total 7.4 mg/dL (8.5-10.1); Chloride 115 mmol/L (98-107); Creatinine, Serum 1.12 mg/dL (0.70-1.30); EST Glomerular Filtration Rate 68 mL/min (>60); Est Glom Filt Rate - Afr Amer 82 mL/min (>60); Estimated Creatinine Clearance 53.91 ml/min; Glucose 79 mg/dL (74-106); Sodium Level 145 mmol/L (136-145)
--- NOTE | 2022-03-12 08:42 | PN.HOSP_ITS ---
Subjective Subjective Picking at his scalp wound. RN found no skin remnants in bed Objective Data Objective Data Vital Signs: Vital Signs Temp Pulse Resp BP Pulse Ox O2 Del Method O2 Flow Rate 36.7 C 67 17 103/46 L 98 Room Air 2 03/12/22 03:50 03/12/22 03:50 03/12/22 03:50 03/12/22 03:50 03/12/22 03:50 03/12/22 04:06 03/11/22 02:28 Oxygen Flow Rate (L/min) 2 Oxygen Delivery Method Room Air Weight: 69 kg Body Mass Index (BMI) 20.8 Intake & Output: Intake and Output for Last 24 Hours 03/10/22 03/11/22 03/12/22 23:59 23:59 23:59 Intake Total 35 4881.08 / 4881.08 150 / 150 Output Total 100 / 100 Balance 35 35 4881.08 / 4881.08 50 / 50 Lab / Micro Data Result Diagrams: 03/12/22 05:36 03/12/22 05:36 Labs: Laboratory Results - last 24 hr 03/11/22 11:20: Hgb 8.2 L, Hct 26.2 L 03/11/22 18:24: Hgb 8.2 L, Hct 27.0 L 03/12/22 05:36: WBC 11.4 H, RBC 2.78 L, Hgb 7.2 L, Hct 23.8 L, MCV 85.6, MCH 25.9 L, MCHC 30.3 L, RDW Std Deviation 50.9 H, RDW Coeff of Sekou 16.1 H, Plt Count 304, MPV 8.9, Immature Gran % (Auto) 0.300, Neut % (Auto) 89.8 H, Lymph % (Auto) 5.5 L, [place] % (Auto) 3.0, Eos % (Auto) 1.1, Baso % (Auto) 0.3, Absolute Neuts (auto) 10.3 H, Absolute Lymphs (auto) 0.63 L, Nucleated RBC % 0 03/12/22 05:36: Sodium 145, Potassium 3.0 L, Chloride 115 H, Carbon Dioxide 23.0, Anion Gap 7, BUN 23 H, Creatinine 1.12, Estim Creat Clear Calc 53.91, Est GFR (MDRD) Af Amer 82, Est GFR (MDRD) Non-Af 68, BUN/Creatinine Ratio 20.5 H, Glucose 79, Calcium 7.4 L Micro: Microbiology 03/10/22 23:30 Blood Culture (Wb) - Anticubital Right Bacteria Detection (PCR) - Final Enterococcus faecium 03/10/22 23:30 Blood Culture (Wb) - Anticubital Right Blood Culture - Preliminary Enterococcus faecium 03/11/22 00:51 Stool Stool Occult Blood (FLYNN) - Final Occult Blood Positive Radiography Diagnostic Testing: Radiology Impression Echocardiogram 03/11/22 02:26 Interpretation Summary Normal LV size. Left ventricular systolic function is normal. The estimated ejection fraction is 55 %. Stage 1 diastolic dysfunction. Ordering Physician: Jamie Powell Referring Physician: NO PCP Performed By: Meme Dahl, RA, RVT Physical Exam Const alert and no apparent distress HEENT HEENT Narrative: scalp lesion dressed tightly with gauze and tape--did not remove. Resp normal respiratory effort, no retractions, no use of accessory muscles and clear to auscultation bilaterally Cardio regular rate, regular rhythm, S1 normal heart sound and S2 normal heart sound GI normal to inspection, nondistended, normoactive bowel sounds and soft to palpati on Assessment & Plan Assessment/Plan (1) Sepsis: QUALIFIERS: Acute renal failure type: unspecified Sepsis acute organ dysfunction status: with acute organ dysfunction Sepsis type: sepsis due to unspecified organism Severe sepsis acute organ dysfunction type: acute renal failure Severe sepsis shock status: with septic shock Qualified Code(s): A41.9 - Sepsis, unspecified organism; R65.21 - Severe sepsis with septic shock; N17.9 - Acute kidney failure, unspecified PLAN: Septic shock POA, resolved with IVF 2/2 choledocholithiasis possible cholangitis + Bacteremia with Enterococcus faecium. DC CTX. Abx with pip/tazo (2) Choledocholithiasis: PLAN: Recurrent (had an ERCP in August for same) 1.2 cm stone in CBD. s/p cholecsytectomy GI consult NPO (3) Atrial fibrillation: QUALIFIERS: Atrial fibrillation type: unspecified Qualified Code(s): I48.91 - Unspecified atrial fibrillation PLAN: EKG and telemetry strip showed atrial fibrillation with controlled rates. Likely secondary to sepsis. Received IV fluids. Potassium was 3.0, replaced. Magnesium was 2.1. Last echocardiogram on file was on 05/14/2021. Echocardiogram at that time showed estimated ejection fraction 55 to 60%. Normal left atrium. Normal right atrium. Repeat echocardiogram Patient is not a candidate of anticoagulation as A. fib may be transient and secondary sepsis and also patient has evidence of GI bleed. (4) Acute hypokalemia: PLAN: Ongoing replace replace mag, which was 1.8 (5) AIYANA (acute kidney injury): PLAN: Improving w IVF Likely 2/2 volume depletion (6) Metabolic encephalopathy: PLAN: 2/2 above in pt with dementia (7) GI (gastrointestinal bleed): PLAN: PUD v MWT v other On IV PPI EGD to eval (8) Acute blood loss anemia: PLAN: Hg dropped from 11 to 7.2 Continue to monitor Transfuse if Hg less than 7. (9) Bacteremia: PLAN: Enterococcus faecium. GI source. Suspect biliary source Continue pip/tazo. Adjust abx based on final sensitivities (10) UTI (urinary tract infection): PLAN: ruled out. 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 Patient's left eye is contracted open and left eye is nonfunctional. Patient had raw tissue over his forehead which patient has been picking at. The nurse who picked him up was concerned the patient may be picking the skin off and eating it. I do not feel that the case as his tissue is raw and just not healing. Continue with dressing to prevent the patient from picking at it. Consult wound care for further recommendations. PLAN: Plan DVT prophylaxis: Not a candidate of chemical thromboprophylaxis secondary to coffee-ground emesis. SCDs ordered. Charges/Coding Visit Charges Inpatient E&M: 59882 Subs Hosp L2
[2022-03-12 09:08] VITALS: BP 110/62; PULSE 73; RESP 16; TEMP 37.3; O2SAT 96
[2022-03-12] MEDS: Tamsulosin HCl 0.4 MG Capsule PO (09:12)
[2022-03-12] MEDS: Sertraline 50 MG Tablet 25 MG PO (09:12)
[2022-03-12] MEDS: Lactated Ringers 1,000 ML 75 ML IV ×2 (10:55→23:18)
[2022-03-12] MEDS: Potassium Chloride 10mEq/100mL 10 MEQ/100 ML IV.SOLN. 100 MEQ IV BOLUS ×4 (11:07→15:11)
[2022-03-12 12:02] VITALS: O2SAT 94
[2022-03-12 15:11] VITALS: BP 115/65; PULSE 67; RESP 16; TEMP 36.6; O2SAT 95
[2022-03-12 21:20] VITALS: BP 119/70; PULSE 74; RESP 16; TEMP 36.9; O2SAT 100
[2022-03-13] VITALS (11 sets, daily range): BP systolic 96–128; BP diastolic 49–79; PULSE 72–81; RESP 16–20; TEMP 36.1–37.2; O2SAT 95–100
[2022-03-13 06:07] LABS: Absolute Lymphocyte Count 0.57 X10^3/uL (0.83-4.51); Basophil# 0.02 X10^3/uL; Basophil% 0.2 % (0-1); Eosinophil# 0.11 X10^3/uL; Hematocrit 24.4 % (40-54); Hemoglobin 7.6 g/dL (13.0-16.5); Lymphocyte # 0.57 X10^3/ul (0.83-4.51); Lymphocyte % 5.1 % (19-41); Mean Corp Hgb Conc 31.1 g/dL (32-36); Mean Corpuscular Hgb 26.4 pg (27.0-32.0); Mean Corpuscular Volume 84.7 fL (80-94); Mean Platelet Vol. 8.7 fl (6.2-12.0); Monocyte# 0.33 X10^3/uL; NRBC Flagged by Analyzer 0 % (0-5); Neutrophil # 9.98 X10^3/uL (2.7-7.7); Neutrophil % 90.1 % (47-70); POSITIVE DIFFERENTIAL YES; Platelet Count 278 K/mm3 (150-450); RBC Distribution Width CV 16.4 % (11.6-14.6); RBC Distribution Width SD 51.2 fl (35.1-43.9); Red Blood Count 2.88 M/mm3 (4.6-6.2); White Blood Count 11.1 K/mm3 (4.4-11.0)
[2022-03-13 06:41] LABS: Anion Gap 7 (5-15); BUN 15 mg/dL (7-18); BUN/Creat Ratio 17.5 RATIO (10-20); Calcium,Total 7.5 mg/dL (8.5-10.1); Chloride 113 mmol/L (98-107); Creatinine, Serum 0.86 mg/dL (0.70-1.30); EST Glomerular Filtration Rate 92 mL/min (>60); Est Glom Filt Rate - Afr Amer 111 mL/min (>60); Estimated Creatinine Clearance 72.24 ml/min; Glucose 73 mg/dL (74-106); Potassium 2.8 mmol/L (3.5-5.1); Sodium Level 143 mmol/L (136-145)
[2022-03-13 06:51] LABS: Differential Indicated SCAN CRITERIA MET
[2022-03-13 07:05] LABS: Anisocytosis 1+
[2022-03-13 07:06] LABS: Hypochromasia 1+
[2022-03-13 08:16] LABS: ALB/GLOB Ratio 0.3 RATIO (0.9-2.4); AST(SGOT) 57 U/L (15-37); Alanine Aminotransfer ALT/SGPT 31 U/L (16-61); Albumin, Serum 1.2 g/dL (3.2-5.0); Alkaline Phosphatase 461 U/L (45-117); Anion Gap 8 (5-15); BUN 14 mg/dL (7-18); BUN/Creat Ratio 16.3 RATIO (10-20); Calcium,Total 7.3 mg/dL (8.5-10.1); Chloride 113 mmol/L (98-107); Creatinine, Serum 0.86 mg/dL (0.70-1.30); EST Glomerular Filtration Rate 92 mL/min (>60); Est Glom Filt Rate - Afr Amer 111 mL/min (>60); Estimated Creatinine Clearance 72.24 ml/min; Globulin 3.8 g/dL (2.2-4.2); Glucose 76 mg/dL (74-106); Potassium 2.9 mmol/L (3.5-5.1); Sodium Level 144 mmol/L (136-145)
--- NOTE | 2022-03-13 09:54 | CASEMGMT ---
R[facility] Patient will likely need a pre-cert to return, however patient has refused therapy everyday. [facility] Shira VALADEZ
--- NOTE | 2022-03-13 11:45 | CASEMGMT ---
ROBERTA called [facility] and spoke with Ela. Patient does need a pre-cert to return. ROBERTA told her patient has refused therapy everyday. She said insurance would probably just approve him for intermediate level of care. Ela said she will start the pre-cert. ROBERTA sent the PT/OT evaluations to Ela via [employer]. Plan: d/c back to [facility] pending approval. Shira Javier ACCOUNTS RECEIVABLE SUPERVISOR RORY
--- NOTE | 2022-03-13 12:52 | RAD_ITS ---
STUDY: ERCP. REASON FOR EXAM: Male, 76 years old. ERCP FLUOROSCOPY TIME (if supplied): ( 2 minutes and 2 seconds ) minutes/seconds. 11 images were submitted. TECHNIQUE: An ERCP was performed by the bicycle i assembler. Imaging was submitted. COMPARISON: Comparison is made with prior study dated 05/16/2021. FINDINGS: Dilatation of the common bile duct with multiple filling defects. Stent placement. RAD/ERCP Biliary/Pancreas IMPRESSION: Dilated common bile duct with multiple intraluminal filling defects. A stent has been placed. Electronically Signed: Kong Nieves MD at 15:02 EST ,
--- NOTE | 2022-03-13 13:45 | WOUNDNOTE ---
Pt is currently off the unit.
--- NOTE | 2022-03-13 15:54 | PN.HOSP_ITS ---
Subjective Subjective Patient frustrated asking when he can go home. EGD/ERCP is to be performed this afternoon. Patient continues to pick at his face where he had his shingles. We did discuss the importance of him not doing this and the concern for new infection if he continues to do this. There is currently dressing in place. Patient refused therapy services since he has been admitted. I strongly encouraged him to get out of bed later today after he gets this procedure performed. Objective Data Objective Data Vital Signs: Vital Signs Temp Pulse Resp BP Pulse Ox O2 Del Method O2 Flow Rate 97 F L 74 16 114/64 95 Room Air 2 03/13/22 15:00 03/13/22 15:00 03/13/22 15:00 03/13/22 15:00 03/13/22 15:05 03/13/22 15:05 03/11/22 02:28 Oxygen Flow Rate (L/min) 2 Oxygen Delivery Method Room Air Weight: 71 kg Body Mass Index (BMI) 20.8 Intake & Output: Intake and Output for Last 24 Hours 03/11/22 03/12/22 03/13/22 23:59 23:59 23:59 Intake Total 4881.08 / 4881.08 3900.08 / 3900.08 1028.75 / 1028.75 Output Total 1150 / 1150 400 / 400 Balance 4881.08 / 4881.08 2750.08 / 2750.08 628.75 / 628.75 Lab / Micro Data Result Diagrams: 03/13/22 05:54 03/13/22 07:43 Labs: Laboratory Results - last 24 hr 03/13/22 05:54: WBC 11.1 H, RBC 2.88 L, Hgb 7.6 L, Hct 24.4 L, MCV 84.7, MCH 26.4 L, MCHC 31.1 L, RDW Std Deviation 51.2 H, RDW Coeff of [place] 16.4 H, Plt Count 278, MPV 8.7, Immature Gran % (Auto) 0.600, Neut % (Auto) 90.1 H, Lymph % (Auto) 5.1 L, [place] % (Auto) 3.0, Eos % (Auto) 1.0, Baso % (Auto) 0.2, Absolute Neuts (auto) 10.0 H, Absolute Lymphs (auto) 0.57 L, Nucleated RBC % 0, Hypochromasia 1+, Anisocytosis 1+ 03/13/22 05:54: Sodium 143, Potassium 2.8 L, Chloride 113 H, Carbon Dioxide 23.0, Anion Gap 7, BUN 15, Creatinine 0.86, Estim Creat Clear Calc 72.24, Est GFR (MDRD) Af Amer 111, Est GFR (MDRD) Non-Af 92, BUN/Creatinine Ratio 17.5, Glucose 73 L, Calcium 7.5 L, Magnesium 2.0 03/13/22 07:43: Sodium 144, Potassium 2.9 L, Chloride 113 H, Carbon Dioxide 23.0, Anion Gap 8, BUN 14, Creatinine 0.86, Estim Creat Clear Calc 72.24, Est GFR (MDRD) Af Amer 111, Est GFR (MDRD) Non-Af 92, BUN/Creatinine Ratio 16.3, Glucose 76, Calcium 7.3 L, Total Bilirubin 2.80 H, AST 57 H, ALT 31, Alkaline Phosphatase 461 H, Total Protein 5.0 L, Albumin 1.2 L, Globulin 3.8, Albumin/Globulin Ratio 0.3 L Micro: Microbiology 03/11/22 00:51 Urine, Catheterized Urine Culture - Final Meth. resistant Staph. aureus 03/10/22 23:30 Blood Culture (Wb) - Anticubital Right Bacteria Detection (PCR) - Final Enterococcus faecium 03/10/22 23:30 Blood Culture (Wb) - Anticubital Right Blood Culture - Final Enterococcus faecium 03/11/22 00:51 Stool Stool Occult Blood (FLYNN) - Final Occult Blood Positive Radiography Diagnostic Testing: Radiology Impression Endo Retro Cholangiopancreatogram 03/13/22 12:52 IMPRESSION: Dilated common bile duct with multiple intraluminal filling defects. A stent has been placed. Electronically Signed: Kong Nieves MD at 15:02 EST , Physical Exam Const alert, oriented x3, no apparent distress and average body habitus Constitutional Narrative: Corrie white male lying in bed, appears comfortable nontoxic HEENT head/scalp atraumatic and moist oral mucous membranes HEENT Narrative: Dentition is poor, Mallampati is 2-3, no thrush Resp normal respiratory effort, no retractions, no use of accessory muscles and clear to auscultation bilaterally Auscultation: Negative for crackles, rhonchi or wheezes Cardio regular rate, regular rhythm, S1 normal heart sound, S2 normal heart sound, no murmurs, no rub, no gallops, no clicks and no JVD GI normal to inspection, nondistended, normoactive bowel sounds, soft to palpation and non-tender Extremity no clubbing, cyanosis or edema Extremity Narrative: 2+ pedal pulses Neuro oriented x3, moves all extremities and no focal motor deficits Speech: speech normal Psych Psych Narrative: Grumpy Assessment & Plan Assessment/Plan (1) Sepsis: QUALIFIERS: Sepsis type: sepsis due to unspecified organism Sepsis acute organ dysfunction status: with acute organ dysfunction Severe sepsis acute organ dysfunction type: acute renal failure Acute renal failure type: unspecified Severe sepsis shock status: with septic shock Qualified Code(s): A41.9 - Sepsis, unspecified organism; R65.21 - Severe sepsis with septic shock; N17.9 - Acute kidney failure, unspecified (2) Choledocholithiasis: (3) GI (gastrointestinal bleed): (4) Atrial fibrillation: QUALIFIERS: Atrial fibrillation type: unspecified Qualified Code(s): I48.91 - Unspecified atrial fibrillation (5) AIYANA (acute kidney injury): (6) Acute blood loss anemia: (7) Bacteremia: (8) UTI (urinary tract infection): (9) Zoster ocular disease, unspecified: (10) Hypokalemia: PLAN: Plan Sepsis secondary to Enterococcus faecium bacteremia -Source is likely his gallbladder with choledocholithiasis and possible cholangitis -Continue Zosyn -Patient is now hemodynamically stable -Continue to monitor cultures -Source control with ERCP later today Staph aureus UTI -It was initially felt that this was not a true infection however with greater than 100,000 colony counts of staph aureus it will need to be treated -Sources is unclear -This has been resulted out as MRSA this afternoon -Patient with persistent leukocytosis -We will start vancomycin -consult infectious disease Choledocholithiasis -ERCP with stone extraction planned for today -GI following-appreciate input -Patient remains n.p.o. at this time -P.o. intake per GI GI bleed -Continue n.p.o. -Continue IV fluids with LR at 75 cc/h -Continue Protonix drip -Hemoglobin is stabilized -EGD later today -Results pending -patient is not anticoagulated at baseline Acute blood loss anemia -Patient has not required transfusion -Hemoglobin 11 upon presentation but has since dropped to 7.6 with a fredy of 7.2 -Hemoglobin has apparently stabilized -EGD later today as noted above Hypokalemia -Potassium was 2.9 this morning -Replacement pending -Repeat lab in a.m. -Check a.m. magnesium level AIYANA -Resolved -Serum creatinine 0.86 -Continue IV fluids while patient is n.p.o. Paroxysmal atrial fibrillation -Currently resolved -Likely related to sepsis -Echocardiogram done on 03/11/2022 demonstrated an EF of 55% with stage I diastolic dysfunction but no other abnormalities -No anticoagulation secondary to bleeding -No current rate controlling medications -Continue to monitor on telemetry Left-sided V1 and V2 zoster -Patient has been picking the skin off of his head -No current signs of infection -Dressing in place -Wound care is following -ID consultation BPH -Continue home Flomax DVT prophylaxis -Continue SCDs -Chemoprophylaxis contraindicated secondary to GI bleed CODE STATUS -full code Charges/Coding Visit Charges Inpatient E&M: 93032 Subs Hosp L2
[2022-03-13] MEDS: Vancomycin IV 1,000 MG/200 ML BAG 200 MG IV (16:57)
[2022-03-13] MEDS: Sertraline 50 MG Tablet 25 MG PO (16:58)
[2022-03-13] MEDS: Tamsulosin HCl 0.4 MG Capsule PO (16:59)
--- NOTE | 2022-03-13 19:32 | OP.CCLET_ITS ---
03/13/2022 No Primary Care Physician Re : ERCP procedure for Kris Mcgill [facility] Care Physician This procedure was performed on Sunday, March 13, 2022. My impressions and recommendations are as follows: Impressions : - Oozing gastric ulcer with a visible vessel. - Hemostasis in the stomach with a heater probe was performed. - The entire main bile duct was moderately dilated, with a stone causing an obstruction. - Choledocholithiasis was found. Complete removal was accomplished by biliary sphincterotomy and balloon extraction. - A biliary sphincterotomy was performed. - The biliary tree was swept. - Biopsy was performed in the upper third of the main bile duct. - Lithotripsy was successful. - The biliary tree was swept. Recommendations : My findings are described in the full procedure note, which is enclosed. If I can be of further assistance, please feel free to contact me at . Sincerely, Chay Friend, DO 03/13/2022 7:32:10 PM This report has been signed electronically.
--- NOTE | 2022-03-13 19:32 | OP.ERCP_ITS ---
Patient Name: Kris Mcgill Procedure Date: 03/13/2022 11:21 AM Date of : 1945 Age: 76 Procedure: ERCP Indications: Jaundice, Elevated liver enzymes Providers: Chay Cornelius DO Medicines: Monitored Anesthesia Care Patient Profile: This is a 76 year old male. Refer to note in patient chart for documentation of history and physical. Patient has symptoms of acute jaundice. Complications: No immediate complications. Procedure: Pre-Anesthesia Assessment: - Prior to the procedure, a History and Physical was performed, and patient medications and allergies were reviewed. The patient is competent. The risks and benefits of the procedure and the sedation options and risks were discussed with the patient. All questions were answered and informed consent was obtained. Patient identification and proposed procedure were verified by the physician in the pre-procedure area. Mental Status Examination: alert and oriented. Airway Examination: normal oropharyngeal airway and neck mobility. Respiratory Examination: clear to auscultation. CV Examination: normal. Prophylactic Antibiotics: The patient does not require prophylactic antibiotics. Prior Anticoagulants: The patient has taken no previous anticoagulant or antiplatelet agents. ASA Grade Assessment: III - A patient with severe systemic disease. After reviewing the risks and benefits, the patient was deemed in satisfactory condition to undergo the procedure. The anesthesia plan was to use general anesthesia. Immediately prior to administration of medications, the patient was re-assessed for adequacy to receive sedatives. The heart rate, respiratory rate, oxygen saturations, blood pressure, adequacy of pulmonary ventilation, and response to care were monitored throughout the procedure. The physical status of the patient was re-assessed after the procedure. After obtaining informed consent, the scope was passed under direct vision. Throughout the procedure, the patient's blood pressure, pulse, and oxygen saturations were monitored continuously. The Duodenoscope was introduced through the mouth, and advanced to the duodenum and used to inject contrast into the bile duct. The ERCP was accomplished without difficulty. The patient tolerated the procedure well. Scope In: 12:54:36 PM Scope Out: 1:45:03 PM Total Procedure Duration Time 0 hours 50 minutes 27 seconds Findings: The wait staff film was normal. The esophagus was successfully intubated under direct vision. The scope was advanced to a normal major papilla in the descending duodenum without detailed examination of the pharynx, larynx and associated structures, and upper GI tract. The upper GI tract was grossly normal. The bile duct was deeply cannulated. Contrast was injected. I personally interpreted the bile duct images. There was brisk flow of contrast through the ducts. Image quality was excellent. Contrast extended to the main bile duct. Opacification of the main bile duct was successful. The maximum diameter of the ducts was 10 mm. The lower third of the main bile duct and middle third of the main bile duct contained two stones, the largest of which was 15 mm in diameter. The main bile duct was moderately dilated, with a stone causing an obstruction. The largest diameter was 18 mm. A 0.035 inch angled Glidewire was passed into the biliary tree. A 5 mm biliary sphincterotomy was made with a monofilament traction (standard) sphincterotome using ERBE electrocautery. The sphincterotomy oozed blood. The biliary tree was swept with a 15 mm balloon starting at the bifurcation. Sludge was swept from the duct. All stones were removed. The upper third of the main bile duct was biopsied with a cold forceps for histology. Electrohydraulic lithotripsy was successful. The biliary tree was swept with a 15 mm balloon starting at the bifurcation. All stones were removed. The bile duct was explored endoscopically using the [employer] direct visualization system. The SpyScope was advanced to the right intrahepatic duct(s). Visibility with the scope was excellent. The main bile duct was normal. The in the biliary system was normal. The lower third of the main bile duct was normal. The in the biliary system was normal. A standard esophagogastroduodenoscopy scope was used for the examination of the upper gastrointestinal tract. The scope was passed under direct vision through the upper GI tract. One oozing cratered gastric ulcer with a visible vessel was found in the stomach. The lesion was 6 mm in largest dimension. Coagulation for hemostasis in the stomach using heater probe through the esophagogastroduodenoscope was successful. Impression: - Oozing gastric ulcer with a visible vessel. - Hemostasis in the stomach with a heater probe was performed. - The entire main bile duct was moderately dilated, with a stone causing an obstruction. - Choledocholithiasis was found. Complete removal was accomplished by biliary sphincterotomy and balloon extraction. - A biliary sphincterotomy was performed. - The biliary tree was swept. - Biopsy was performed in the upper third of the main bile duct. - Lithotripsy was successful. - The biliary tree was swept. Procedure Code(s): --- Professional --- 11013, Endoscopic retrograde cholangiopancreatography (ERCP); with destruction of calculi, any method (eg, mechanical, electrohydraulic, lithotripsy) 34453, Endoscopic retrograde cholangiopancreatography (ERCP); with sphincterotomy/papillotomy 23608, Endoscopic retrograde cholangiopancreatography (ERCP); with biopsy, single or multiple 60501, Esophagogastroduodenoscopy, flexible, transoral; with control of bleeding, any method 57884, Endoscopic cannulation of papilla with direct visualization of pancreatic/common bile duct(s) (List separately in addition to code(s) for primary procedure) 67739, Endoscopic catheterization of the biliary ductal system, radiological supervision and interpretation CPT copyright 2017 [employer]. All rights reserved. The codes documented in this report are preliminary and upon machine taper review may be revised to meet current compliance requirements. Chay Cornelius DO 03/13/2022 7:32:10 PM This report has been signed electronically. Number of Addenda: 0 Note Initiated On: 03/13/2022 11:21 AM
--- NOTE | 2022-03-13 20:29 | PCM.RX.CS ---
Consult Pharmacy has been consulted to manage selected antiobiotic: Vancomycin Type of Consult: New start Suspected Infection: Other Prior Doses of Antibiotics Received/Current Regimen: Received initial dose of 1000mg iv x 1 on 03.13.22 @1654. Labs: Sodium 144 mmol/L (136-145) 03/13/22 07:43 Potassium 2.9 mmol/L (3.5-5.1) L 03/13/22 07:43 Chloride 113 mmol/L (98-107) H 03/13/22 07:43 Carbon Dioxide 23.0 mmol/L (21.0-32.0) 03/13/22 07:43 Anion Gap 8 (5-15) 03/13/22 07:43 BUN 14 mg/dL (7-18) 03/13/22 07:43 Creatinine 0.86 mg/dL (0.70-1.30) 03/13/22 07:43 Est GFR (MDRD) Af Amer 111 mL/min (>60) 03/13/22 07:43 Est GFR (MDRD) Non-Af 92 mL/min (>60) 03/13/22 07:43 BUN/Creatinine Ratio 16.3 RATIO (10-20) 03/13/22 07:43 Glucose 76 mg/dL (74-106) 03/13/22 07:43 Microbiology: Microbiology 03/11/22 00:51 Urine, Catheterized Urine Culture - Final Meth. resistant Staph. aureus 03/10/22 23:30 Blood Culture (Wb) - Anticubital Right Bacteria Detection (PCR) - Final Enterococcus faecium 03/10/22 23:30 Blood Culture (Wb) - Anticubital Right Blood Culture - Final Enterococcus faecium 03/11/22 00:51 Stool Stool Occult Blood (FLYNN) - Final Occult Blood Positive Weight used for dosin kg Estimated Creatinine Clearance: 72 ml/min Goal Trough: 10-15 mcg/mL Pharmacy Plan for Drug Dosing: Will start 750mg iv q12h per protocol. Trough level ordered for before 4th total dose. Pharmacy Service will continue to monitor and adjust dosing as required. Follow-Up Labs: Trough Vancomycin - .. @0430 before 0500 dose
[2022-03-14] VITALS (12 sets, daily range): BP systolic 96–131; BP diastolic 49–96; PULSE 60–78; RESP 16–18; TEMP 36.5–37.2; O2SAT 95–99
[2022-03-14] MEDS: Lactated Ringers 1,000 ML 75 ML IV (03:56)
[2022-03-14 04:14] LABS: Absolute Lymphocyte Count 0.85 X10^3/uL (0.83-4.51); Absolute Neutrophil Count 5.2 X10^3/uL (2.0-7.7); Basophil# 0.02 X10^3/uL; Basophil% 0.3 % (0-1); Eosinophils% 4.5 % (0-5); Hematocrit 21.9 % (40-54); Hemoglobin 6.6 g/dL (13.0-16.5); Lymphocyte # 0.85 X10^3/ul (0.83-4.51); Lymphocyte % 12.7 % (19-41); Mean Corp Hgb Conc 30.1 g/dL (32-36); Mean Corpuscular Hgb 25.9 pg (27.0-32.0); Mean Corpuscular Volume 85.9 fL (80-94); Mean Platelet Vol. 9.2 fl (6.2-12.0); Monocyte# 0.29 X10^3/uL; Monocyte% 4.3 % (0-10); NRBC Flagged by Analyzer 0 % (0-5); Neutrophil % 77.6 % (47-70); Platelet Count 204 K/mm3 (150-450); RBC Distribution Width CV 16.8 % (11.6-14.6); RBC Distribution Width SD 53.1 fl (35.1-43.9); Red Blood Count 2.55 M/mm3 (4.6-6.2); White Blood Count 6.7 K/mm3 (4.4-11.0)
[2022-03-14 04:41] LABS: Anion Gap 8 (5-15); BUN 13 mg/dL (7-18); BUN/Creat Ratio 13.3 RATIO (10-20); Calcium,Total 6.8 mg/dL (8.5-10.1); Chloride 112 mmol/L (98-107); Creatinine, Serum 0.98 mg/dL (0.70-1.30); EST Glomerular Filtration Rate 79 mL/min (>60); Est Glom Filt Rate - Afr Amer 96 mL/min (>60); Estimated Creatinine Clearance 63.39 ml/min; Glucose 79 mg/dL (74-106); Sodium Level 142 mmol/L (136-145)
--- NOTE | 2022-03-14 10:26 | PCM.CONS.GEN ---
Assessment & Plan Assessment/Plan (1) Bacteremia: (2) Sepsis: QUALIFIERS: Sepsis type: sepsis due to unspecified organism Sepsis acute organ dysfunction status: with acute organ dysfunction Severe sepsis acute organ dysfunction type: acute renal failure Acute renal failure type: unspecified Severe sepsis shock status: with septic shock Qualified Code(s): A41.9 - Sepsis, unspecified organism; R65.21 - Severe sepsis with septic shock; N17.9 - Acute kidney failure, unspecified PLAN: sepsis with enterococcus bacteremia and AIYANA due to cholangitis - ERCP done 03/13/[address] Cornelius. Wbc now normal, denies abd pain . On vanc/zosyn. Ucx with MRSA, will check repeat bcx. Will follow, thank you (3) AIYANA (acute kidney injury): (4) Cholangitis: HPI Consult Data Date of Consult: 03/14/22 HPI Narrative Reason for Consultation: bacteremia HPI Narrative: JERRICA ARGUETA, is a 76 M who presented from [facility] with unresponsiveness, emesis, hypotension. Admitted on empiric zosyn. Found to have stone and dilated common bile duct. Taken for ERCP 03/13/[address] Cornelius. Reports some abd pain, now resolved. Feeling better. No fever. Vanc added due to MRSA in urine. Full ROS performed and neg except as noted above. [facility] Medical History Arthritis Atherosclerotic heart disease of [place] coronary artery without angina pectoris BMI 29.0-29.9,adult Cancer Chronic kidney disease, stage 2 (mild) Exertional dyspnea Fatty liver Gastric reflux Generalized pruritus High cholesterol History of echocardiogram History of pain when walking Hypertension Hypokalemia Low vitamin B12 level Lymphoma Mixed hyperlipidemia Restless legs Stroke/cerebrovascular accident Syncope Walker as ambulation aid Zoster ocular disease, unspecified Home Medications acetaminophen 500 mg tablet 500 mg PO Q8 PRN Pain 09/05/21 [History Last Taken Unknown] melatonin 10 mg tablet 10 mg PO QHS Sleep 09/05/21 [History Last Taken Unknown] tamsulosin 0.4 mg capsule 0.4 mg PO DAILY Bladder Spasm 09/05/21 [History Last Taken Unknown] hydrocodone-acetaminophen 5-325mg 5mg-325mg 1 tab PO Q8 pain 03/11/22 [History Last Taken Unknown] promethazine 25 mg/mL injection solution 25 mg IM Q8 nausea 03/11/22 [History Last Taken Unknown] sertraline 25 mg tablet (Zoloft) 25 mg PO DAILY Depression 03/11/22 [History Last Taken Unknown] Allergy/AdvReac Type Severity Reaction Status Date / Time allopurinol Allergy Intermediate UNK Verified 05/13/21 11:28 Family History Father Emphysema of lung COPD (chronic obstructive pulmonary disease) Mother Cancer Surgical History History of cholecystectomy Social History Smoking Status: Never smoker Electronic Cigarette Use: not used second hand exposure: No alcohol intake: never substance use type: does not use Physical Exam Const alert and no apparent distress General Appearance: cooperative HEENT normocephalic and head/scalp atraumatic Eyes PERRL and EOMs intact bilaterally Neck supple and No nodes Resp normal air movement and clear to auscultation bilaterally Cardio regular rate and regular rhythm GI soft to palpation, non-tender and non-distended Extremity General Extremity: Negative for edema Skin Skin Narrative: no new rash Neuro CN's II-XII intact bilaterally Lab / Micro Data Attestation: I reviewed the patient's lab results. Result Diagrams: 03/14/22 03:50 03/14/22 03:50 Labs: Laboratory Results - last 24 hr 03/14/22 03:50: WBC 6.7, RBC 2.55 L, Hgb 6.6 L, Hct 21.9 L, MCV 85.9, MCH 25.9 L, MCHC 30.1 L, RDW Std Deviation 53.1 H, RDW Coeff of [place] 16.8 H, Plt Count 204, MPV 9.2, Immature Gran % (Auto) 0.600, Neut % (Auto) 77.6 H, Lymph % (Auto) 12.7 L, [place] % (Auto) 4.3, Eos % (Auto) 4.5, Baso % (Auto) 0.3, Absolute Neuts (auto) 5.2, Absolute Lymphs (auto) 0.85, Nucleated RBC % 0 03/14/22 03:50: Sodium 142, Potassium 3.0 L, Chloride 112 H, Carbon Dioxide 22.0, Anion Gap 8, BUN 13, Creatinine 0.98, Estim Creat Clear Calc 63.39, Est GFR (MDRD) Af Amer 96, Est GFR (MDRD) Non-Af 79, BUN/Creatinine Ratio 13.3, Glucose 79, Calcium 6.8 L 03/14/22 05:19: Blood Type O NEGATIVE, Antibody Screen NEGATIVE, Crossmatch See Detail Micro: Microbiology 03/11/22 00:51 Urine, Catheterized Urine Culture - Final Meth. resistant Staph. aureus 03/10/22 23:30 Blood Culture (Wb) - Anticubital Right Bacteria Detection (PCR) - Final Enterococcus faecium 03/10/22 23:30 Blood Culture (Wb) - Anticubital Right Blood Culture - Final Enterococcus faecium Radiology Impression Endo Retro Cholangiopancreatogram 03/13/22 12:52 IMPRESSION: Dilated common bile duct with multiple intraluminal filling defects. A stent has been placed. Electronically Signed: Kong Nieves MD at 15:02 EST ,
[2022-03-14] MEDS: Potassium Chloride Oral Tablet 20 MEQ 60 MEQ PO (13:51)
[2022-03-14] MEDS: Pantoprazole Sodium 40 MG Tablet PO ×2 (13:51→21:16)
[2022-03-14] MEDS: HYDROcodone Bitartrate/Apap 5/325 Tablet PO ×2 (13:51→21:16)
[2022-03-14] MEDS: Tamsulosin HCl 0.4 MG Capsule PO (13:51)
[2022-03-14] MEDS: Sertraline 50 MG Tablet 25 MG PO (13:52)
[2022-03-14 14:31] LABS: Hematocrit 25.1 % (40-54); Hemoglobin 7.8 g/dL (13.0-16.5)
--- NOTE | 2022-03-14 14:38 | WOUNDNOTE ---
wound photo: forehead
--- NOTE | 2022-03-14 16:36 | PN.HOSP_ITS ---
Subjective Subjective Patient has been refusing therapy. I strongly encouraged him to participate today to get ready for discharge. Was happy got to eat. No issues overnight. Hemoglobin was low at 6.6 this morning so he is receiving blood at the time of my evaluation. Objective Data Objective Data Vital Signs: Vital Signs Temp Pulse Resp BP Pulse Ox O2 Del Method O2 Flow Rate 97.9 F 74 18 109/61 98 Room Air 2 03/14/22 10:27 03/14/22 10:27 03/14/22 10:27 03/14/22 10:27 03/14/22 10:27 03/14/22 14:00 03/11/22 02:28 Oxygen Flow Rate (L/min) 2 Oxygen Delivery Method Room Air Weight: 72.3 kg Body Mass Index (BMI) 20.8 Intake & Output: Intake and Output for Last 24 Hours 03/12/22 03/13/22 03/14/22 23:59 23:59 23:59 Intake Total 3900.08 / 3900.08 2226.0833 / 2426.0833 2211.75 / 2211.75 Output Total 1150 / 1150 700 / 1000 500 / 500 Balance 2750.08 / 2750.08 1526.0833 / 1426.0833 1711.75 / 1711.75 Lab / Micro Data Result Diagrams: 03/14/22 14:17 03/14/22 03:50 Labs: Laboratory Results - last 24 hr 03/14/22 03:50: WBC 6.7, RBC 2.55 L, Hgb 6.6 L, Hct 21.9 L, MCV 85.9, MCH 25.9 L , MCHC 30.1 L, RDW Std Deviation 53.1 H, RDW Coeff of Sekou 16.8 H, Plt Count 204, MPV 9.2, Immature Gran % (Auto) 0.600, Neut % (Auto) 77.6 H, Lymph % (Auto) 12.7 L, [place] % (Auto) 4.3, Eos % (Auto) 4.5, Baso % (Auto) 0.3, Absolute Neuts (auto) 5.2, Absolute Lymphs (auto) 0.85, Nucleated RBC % 0 03/14/22 03:50: Sodium 142, Potassium 3.0 L, Chloride 112 H, Carbon Dioxide 22.0, Anion Gap 8, BUN 13, Creatinine 0.98, Estim Creat Clear Calc 63.39, Est GFR (MDRD) Af Amer 96, Est GFR (MDRD) Non-Af 79, BUN/Creatinine Ratio 13.3, Glucose 79, Calcium 6.8 L 03/14/22 05:19: Blood Type O NEGATIVE, Antibody Screen NEGATIVE, Crossmatch See Detail 03/14/22 14:17: Hgb 7.8 L, Hct 25.1 L Micro: Microbiology 03/11/22 00:51 Urine, Catheterized Urine Culture - Final Meth. resistant Staph. aureus 03/10/22 23:30 Blood Culture (Wb) - Anticubital Right Bacteria Detection (PCR) - Final Enterococcus faecium 03/10/22 23:30 Blood Culture (Wb) - Anticubital Right Blood Culture - Final Enterococcus faecium 03/11/22 00:51 Stool Stool Occult Blood (FLYNN) - Final Occult Blood Positive Physical Exam Const alert, no apparent distress and average body habitus Constitutional Narrative: Elderly, white male lying in bed, appears comfortable, nontoxic, light is off and patient is resting but awakens easily, oriented to place, year, self, present night states was unclear on the month and states he does not follow these things HEENT moist oral mucous membranes HEENT Narrative: Patient with large wound on left forehead related to recent shingles--> images from wound care reviewed his bandage is currently in place, does not appear infected Head and Scalp: normocephalic Resp normal respiratory effort, no retractions, no use of accessory muscles and clear to auscultation bilaterally Auscultation: Negative for crackles, rhonchi or wheezes Cardio regular rate, regular rhythm, S1 normal heart sound, S2 normal heart sound, no murmurs, no rub, no gallops, no clicks and no JVD GI normal to inspection, nondistended, normoactive bowel sounds, soft to palpation and non-tender Extremity no clubbing, cyanosis or edema Extremity Narrative: 2+ pedal pulses Neuro moves all extremities and no focal motor deficits Neuro Narrative: Seems to have some generalized weakness however has been refusing participation with physical therapy Speech: speech normal Psych Psych Narrative: Remains grumpy Assessment & Plan Assessment/Plan (1) Sepsis: QUALIFIERS: Sepsis type: sepsis due to unspecified organism Sepsis acute organ dysfunction status: with acute organ dysfunction Severe sepsis acute organ dysfunction type: acute renal failure Acute renal failure type: unspecified Severe sepsis shock status: with septic shock Qualified Code(s): A41.9 - Sepsis, unspecified organism; R65.21 - Severe sepsis with septic shock; N17.9 - Acute kidney failure, unspecified (2) Choledocholithiasis: (3) GI (gastrointestinal bleed): (4) Atrial fibrillation: QUALIFIERS: Atrial fibrillation type: unspecified Qualified Code(s): I48.91 - Unspecified atrial fibrillation (5) AIYANA (acute kidney injury): (6) Acute blood loss anemia: (7) Bacteremia: (8) UTI (urinary tract infection): (9) Zoster ocular disease, unspecified: (10) Hypokalemia: PLAN: Plan Sepsis secondary to Enterococcus faecium bacteremia -Source is likely his gallbladder with choledocholithiasis and possible cholangitis -Continue Zosyn -Patient is now hemodynamically stable -Continue to monitor cultures -Source control with ERCP and 2 stones removed MRSA UTI -It was initially felt that this was not a true infection however with greater than 100,000 colony counts of staph aureus it will need to be treated -Source is unclear -Patient with persistent leukocytosis -Repeat blood cultures pending -Continue vancomycin -ID consulted-appreciate input Choledocholithiasis -ERCP with stone extraction x2 performed on 03/13/2022 -GI following-appreciate input -P.o. diet initiated patient tolerated well GI bleed secondary to oozing gastric ulcer -EGD done yesterday showed oozing gastric ulcer with visible vessel and treated with heater probe -Diet per GI -Discontinue IV fluids -Discontinue Protonix drip and transition to oral Protonix 40 mg p.o. twice daily -Hemoglobin down to 6.6 this morning however per discussion with GI there was no obvious bleeding and this is likely dilutional and equilibration -1 unit packed red blood cells given with appropriate in a few globin noted -patient is not anticoagulated at baseline Acute blood loss anemia -Hemoglobin down to 6.6 this morning from 7.6 yesterday -1 unit packed red blood cells given with repeat hemoglobin up approximately 1 g as expected -Hemoglobin 11 upon presentation but dropped -EGD with visible gastric vessel--> see plan above Hypokalemia -Potassium was only up to 3.0 this morning -Repeat replacement -Repeat lab in a.m. -Magnesium level normal at 2.0 AIYANA -Resolved -Serum creatinine 0.86 -IV fluids discontinued as patient is on p.o. diet Paroxysmal atrial fibrillation -Currently resolved -Likely related to sepsis -Echocardiogram done on 03/11/2022 demonstrated an EF of 55% with stage I d iastolic dysfunction but no other abnormalities -No anticoagulation secondary to bleeding -Would recommend outpatient event monitor to assess for ongoing paroxysmal atrial fibrillation and hold off with anticoagulation at this time -No current rate controlling medications -Continue to monitor on telemetry Left-sided V1 and V2 zoster -Patient has been picking the skin off of his head -No current signs of infection -Dressing in place--> wound care images reviewed -Wound care is following -ID following BPH -Continue home Flomax DVT prophylaxis -Continue SCDs -Chemoprophylaxis contraindicated secondary to GI bleed CODE STATUS -full code Charges/Coding Visit Charges Inpatient E&M: 26475 Subs Hosp L2
--- NOTE | 2022-03-14 20:21 | PCM.PROGNOTE ---
Subjective Subjective Patient underwent ERCP yesterday for choledocholithiasis. He was discovered to have a large stone that was removed via lithotripsy and he had a large fully covered biliary stent placed yesterday. He is not having abdominal pain. He did have a slight drop in his hemoglobin today. Objective Data Objective Data Vital Signs: Vital Signs Temp Pulse Resp BP Pulse Ox O2 Del Method O2 Flow Rate 98.6 F 67 16 101/49 L 98 Room Air 2 03/14/22 19:55 03/14/22 19:55 03/14/22 19:55 03/14/22 19:55 03/14/22 19:55 03/14/22 19:56 03/11/22 02:28 Oxygen Flow Rate (L/min) 2 Oxygen Delivery Method Room Air Weight: 159 lb 6.307 oz Body Mass Index (BMI) 20.8 Intake & Output: Intake and Output for Last 24 Hours 03/12/22 03/13/22 03/14/22 23:59 23:59 23:59 Intake Total 3900.08 / 3900.08 2226.0833 / 2426.0833 2593.50 / 2593.50 Output Total 1150 / 1150 700 / 1000 1100 / 1100 Balance 2750.08 / 2750.08 1526.0833 / 1426.0833 1493.50 / 1493.50 Lab / Micro Data Result Diagrams: 03/14/22 14:17 03/14/22 03:50 Labs: Laboratory Results - last 24 hr 03/14/22 03:50: WBC 6.7, RBC 2.55 L, Hgb 6.6 L, Hct 21.9 L, MCV 85.9, MCH 25.9 L, MCHC 30.1 L, RDW Std Deviation 53.1 H, RDW Coeff of Sekou 16.8 H, Plt Count 204, MPV 9.2, Immature Gran % (Auto) 0.600, Neut % (Auto) 77.6 H, Lymph % (Auto) 12.7 L, [place] % (Auto) 4.3, Eos % (Auto) 4.5, Baso % (Auto) 0.3, Absolute Neuts (auto) 5.2, Absolute Lymphs (auto) 0.85, Nucleated RBC % 0 03/14/22 03:50: Sodium 142, Potassium 3.0 L, Chloride 112 H, Carbon Dioxide 22.0, Anion Gap 8, BUN 13, Creatinine 0.98, Estim Creat Clear Calc 63.39, Est GFR (MDRD) Af Amer 96, Est GFR (MDRD) Non-Af 79, BUN/Creatinine Ratio 13.3, Glucose 79, Calcium 6.8 L 03/14/22 05:19: Blood Type O NEGATIVE, Antibody Screen NEGATIVE, Crossmatch See Detail 03/14/22 14:17: Hgb 7.8 L, Hct 25.1 L Micro: Microbiology 03/11/22 00:51 Urine, Catheterized Urine Culture - Final Meth. resistant Staph. aureus 03/10/22 23:30 Blood Culture (Wb) - Anticubital Right Bacteria Detection (PCR) - Final Enterococcus faecium 03/10/22 23:30 Blood Culture (Wb) - Anticubital Right Blood Culture - Final Enterococcus faecium 03/11/22 00:51 Stool Stool Occult Blood (FLYNN) - Final Occult Blood Positive Physical Exam Const alert and no apparent distress General Appearance: cooperative HEENT normocephalic and head/scalp atraumatic Eyes PERRL and EOMs intact bilaterally Neck supple and No nodes Resp normal air movement and clear to auscultation bilaterally Cardio regular rate and regular rhythm GI soft to palpation, non-tender and non-distended Extremity General Extremity: Negative for edema Skin Skin Narrative: no new rash Neuro CN's II-XII intact bilaterally Assessment & Plan Assessment/Plan (1) Choledocholithiasis: PLAN: Status post ERCP with stone removal and stent placement. I would place him on ursodiol 500 mg p.o. twice daily in the interim to prevent clogging of stent. He is having normal bowel movements. He is not having abdominal pain. (2) GI (gastrointestinal bleed): PLAN: Agree to trend his hemoglobin. If he does continue to have a decreased hemoglobin he will need an outpatient colonoscopy. Charges/Coding Visit Charges Inpatient E&M: 93992 Subs Hosp L3
[2022-03-14] MEDS: MELATONIN 10 MG TABLET PO (21:16)
[2022-03-14] MEDS: Ensure Plus High Protein 120 ML LIQUID PO (21:17)
[2022-03-15 03:00] VITALS: PULSE 60
[2022-03-15 04:19] VITALS: BP 101/63; PULSE 58; RESP 16; TEMP 36.9; O2SAT 99
[2022-03-15 04:43] LABS: Absolute Lymphocyte Count 0.87 X10^3/uL (0.83-4.51); Absolute Neutrophil Count 4.5 X10^3/uL (2.0-7.7); Basophil# 0.04 X10^3/uL; Basophil% 0.7 % (0-1); Eosinophil# 0.33 X10^3/uL; Eosinophils% 5.5 % (0-5); Hematocrit 24.8 % (40-54); Hemoglobin 7.8 g/dL (13.0-16.5); Lymphocyte # 0.87 X10^3/ul (0.83-4.51); Lymphocyte % 14.4 % (19-41); Mean Corp Hgb Conc 31.5 g/dL (32-36); Mean Corpuscular Hgb 26.6 pg (27.0-32.0); Mean Corpuscular Volume 84.6 fL (80-94); Mean Platelet Vol. 8.9 fl (6.2-12.0); Monocyte# 0.32 X10^3/uL; Monocyte% 5.3 % (0-10); NRBC Flagged by Analyzer 0 % (0-5); Neutrophil # 4.45 X10^3/uL (2.7-7.7); Neutrophil % 73.4 % (47-70); Platelet Count 179 K/mm3 (150-450); RBC Distribution Width CV 16.7 % (11.6-14.6); Red Blood Count 2.93 M/mm3 (4.6-6.2); White Blood Count 6.1 K/mm3 (4.4-11.0)
[2022-03-15 05:10] LABS: AST(SGOT) 50 U/L (15-37); Alanine Aminotransfer ALT/SGPT 31 U/L (16-61); Albumin, Serum 1.1 g/dL (3.2-5.0); Alkaline Phosphatase 456 U/L (45-117); Anion Gap 6 (5-15); BUN 11 mg/dL (7-18); BUN/Creat Ratio 13.7 RATIO (10-20); Calcium,Total 7.2 mg/dL (8.5-10.1); Chloride 115 mmol/L (98-107); EST Glomerular Filtration Rate 99 mL/min (>60); Est Glom Filt Rate - Afr Amer 120 mL/min (>60); Estimated Creatinine Clearance 79.08 ml/min; Globulin 3.9 g/dL (2.2-4.2); Glucose 77 mg/dL (74-106); Potassium 3.6 mmol/L (3.5-5.1); Sodium Level 144 mmol/L (136-145)
[2022-03-15 05:35] LABS: Vancomycin, Trough Level 15.5 ug/mL (5.0-15.0)
--- NOTE | 2022-03-15 05:43 | PCM.RX.CS ---
Consult Pharmacy has been consulted to manage selected antiobiotic: Vancomycin Type of Consult: Follow-up Prior Doses of Antibiotics Received/Current Regimen: Medications Vancomycin HCl 750 mg/ Sodium (Chloride) 265 mls @ 250 mls/hr IV Q12H RIANNA Last Admin: 03/14/22 18:36 Dose: Infused Labs: Sodium 144 mmol/L (136-145) 03/15/22 04:37 Potassium 3.6 mmol/L (3.5-5.1) 03/15/22 04:37 Chloride 115 mmol/L (98-107) H 03/15/22 04:37 Carbon Dioxide 23.0 mmol/L (21.0-32.0) 03/15/22 04:37 Anion Gap 6 (5-15) 03/15/22 04:37 BUN 11 mg/dL (7-18) 03/15/22 04:37 Creatinine 0.80 mg/dL (0.70-1.30) 03/15/22 04:37 Est GFR (MDRD) Af Amer 120 mL/min (>60) 03/15/22 04:37 Est GFR (MDRD) Non-Af 99 mL/min (>60) 03/15/22 04:37 BUN/Creatinine Ratio 13.7 RATIO (10-20) 03/15/22 04:37 Glucose 77 mg/dL (74-106) 03/15/22 04:37 Vancomycin Trough 15.5 ug/mL (5.0-15.0) H 03/15/22 04:37 Microbiology: Microbiology 03/11/22 00:51 Urine, Catheterized Urine Culture - Final Meth. resistant Staph. aureus 03/10/22 23:30 Blood Culture (Wb) - Anticubital Right Bacteria Detection (PCR) - Final Enterococcus faecium 03/10/22 23:30 Blood Culture (Wb) - Anticubital Right Blood Culture - Final Enterococcus faecium 03/11/22 00:51 Stool Stool Occult Blood (FLYNN) - Final Occult Blood Positive Weight used for dosin.3 kg Estimated Creatinine Clearance: 79 Goal Trough: 10-15 mcg/mL Pharmacy Plan for Drug Dosing: Vancomycin trough level, drawn 11 hours post-dose, was 15.5, just above the target range of 10-15. Will continue dosing at 750mg q12h and re-draw a level in two days. Pharmacy Service will continue to monitor and adjust dosing as required. Follow-Up Labs: Trough Vancomycin Labs to be done on [date and time ordered]: 03/17/22 @4660
[2022-03-15] MEDS: 0.9% Saline Lock 10 ML Syringe IV ×2 (06:34→10:43)
[2022-03-15] MEDS: HYDROcodone Bitartrate/Apap 5/325 Tablet PO ×3 (06:34→21:59)
--- NOTE | 2022-03-15 09:10 | CASEMGMT ---
ROBERTA sent a message to [facility] via [employer] inquiring if they have heard anything from insurance. Shira Javier [employer] RORY
[2022-03-15 10:00] VITALS: BP 117/77; PULSE 57; RESP 16; TEMP 36.4; O2SAT 98
--- NOTE | 2022-03-15 10:05 | CASEMGMT ---
They have not heard back yet. 10:43 Insurance is asking for updated information. ROBERTA sent updates to [facility] via [employer]. Shira Javier DOFFER RORY
[2022-03-15] MEDS: Tamsulosin HCl 0.4 MG Capsule PO (10:42)
[2022-03-15] MEDS: Pantoprazole Sodium 40 MG Tablet PO ×2 (10:43→21:59)
[2022-03-15] MEDS: Sertraline 50 MG Tablet 25 MG PO (10:43)
--- NOTE | 2022-03-15 13:37 | PCM.PN.ID ---
Physical Exam Narrative Feeling better, no fever, no abd pain Const alert and no apparent distress Resp normal air movement and clear to auscultation bilaterally Cardio regular rate and regular rhythm GI soft to palpation, non-tender and non-distended Skin no rashes or lesions noted ID ID: Route of nutrition/ use of supplements: [] Nutritional Intake: [] IV Site: [] Tesfaye Catheter: [] Assessment & Plan Assessment/Plan (1) Bacteremia: (2) Sepsis: QUALIFIERS: Sepsis type: sepsis due to unspecified organism Sepsis acute organ dysfunction status: with acute organ dysfunction Severe sepsis acute organ dysfunction type: acute renal failure Acute renal failure type: unspecified Severe sepsis shock status: with septic shock Qualified Code(s): A41.9 - Sepsis, unspecified organism; R65.21 - Severe sepsis with septic shock; N17.9 - Acute kidney failure, unspecified PLAN: sepsis with enterococcus bacteremia and AIYANA due to cholangitis - ERCP done 03/13/[address] Cornelius. Wbc now normal, denies abd pain . On vanc/zosyn. Ucx with MRSA, repeat bcx neg so far. Plan is for discharge with 5 days bactrim/augmentin. Will follow, d/w Dr. Syed (3) AIYANA (acute kidney injury): (4) Cholangitis:
[2022-03-15 16:00] VITALS: BP 131/74; PULSE 61; RESP 16; TEMP 36.6; O2SAT 95
--- NOTE | 2022-03-15 16:17 | PCM.PROGNOTE ---
Subjective Subjective I had a long talk with his daughter explaining findings during ERCP including gastric ulcer and multiple choledocholithiasis that were treated with lithotripsy. To prevent his common bile duct closing down after having a very a fully covered metal stent was placed into the bile duct. Objective Data Objective Data Vital Signs: Vital Signs Temp Pulse Resp BP Pulse Ox O2 Del Method O2 Flow Rate 97.6 F L 57 L 16 117/77 98 Room Air 2 03/15/22 10:00 03/15/22 10:00 03/15/22 10:00 03/15/22 10:00 03/15/22 10:00 03/15/22 10:00 03/11/22 02:28 Oxygen Flow Rate (L/min) 2 Oxygen Delivery Method Room Air Weight: 160 lb 7.944 oz Body Mass Index (BMI) 20.8 Intake & Output: Intake and Output for Last 24 Hours 03/13/22 03/14/22 03/15/22 23:59 23:59 23:59 Intake Total 2226.0833 / 2426.0833 2833.50 / 2833.50 677.5 / 677.5 Output Total 700 / 1000 1250 / 1250 200 / 200 Balance 1526.0833 / 1426.0833 1583.50 / 1583.50 477.5 / 477.5 Lab / Micro Data Result Diagrams: 03/15/22 04:37 03/15/22 04:37 Labs: Laboratory Results - last 24 hr 03/15/22 04:37: WBC 6.1, RBC 2.93 L, Hgb 7.8 L, Hct 24.8 L, MCV 84.6, MCH 26.6 L, MCHC 31.5 L, RDW Std Deviation 52.0 H, RDW Coeff of Sekou 16.7 H, Plt Count 179, MPV 8.9, Immature Gran % (Auto) 0.700, Neut % (Auto) 73.4 H, Lymph % (Auto) 14.4 L, [place] % (Auto) 5.3, Eos % (Auto) 5.5 H, Baso % (Auto) 0.7, Absolute Neuts (auto) 4.5, Absolute Lymphs (auto) 0.87, Nucleated RBC % 0 03/15/22 04:37: Sodium 144, Potassium 3.6, Chloride 115 H, Carbon Dioxide 23.0, Anion Gap 6, BUN 11, Creatinine 0.80, Estim Creat Clear Calc 79.08, Est GFR (MDRD) Af Amer 120, Est GFR (MDRD) Non-Af 99, BUN/Creatinine Ratio 13.7, Glucose 77, Calcium 7.2 L, Total Bilirubin 2.70 H, Direct Bilirubin 2.40 H, AST 50 H, ALT 31, Alkaline Phosphatase 456 H, Total Protein 5.0 L, Albumin 1.1 L, Globulin 3.9 03/15/22 04:37: Vancomycin Trough 15.5 H Micro: Microbiology 03/11/22 00:51 Urine, Catheterized Urine Culture - Final Meth. resistant Staph. aureus 03/10/22 23:30 Blood Culture (Wb) - Anticubital Right Bacteria Detection (PCR) - Final Enterococcus faecium 03/10/22 23:30 Blood Culture (Wb) - Anticubital Right Blood Culture - Final Enterococcus faecium 03/11/22 00:51 Stool Stool Occult Blood (FLYNN) - Final Occult Blood Positive Physical Exam Narrative Feeling better, no fever, no abd pain Const alert and no apparent distress Resp normal air movement and clear to auscultation bilaterally Cardio regular rate and regular rhythm GI soft to palpation, non-tender and non-distended Skin no rashes or lesions noted Assessment & Plan Assessment/Plan (1) Choledocholithiasis: PLAN: Status post ERCP with stone removal and stent placement. I would place him on ursodiol 500 mg p.o. twice daily in the interim to prevent clogging of stent. He is having normal bowel movements. He is not having abdominal pain. Continue antibiotics as per ID. (2) GI (gastrointestinal bleed): PLAN: Agree to trend his hemoglobin. If he does continue to have a decreased hemoglobin he will need an outpatient colonoscopy. Patient can be discharged from GI standpoint. Charges/Coding Visit Charges Inpatient E&M: 93423 Subs Hosp L3
--- NOTE | 2022-03-15 16:32 | PCM.PN.HOSP ---
Subjective Subjective No issues overnight. No complaints. Hemoglobin is stable and no further transfusions required. Per ID and GI patient is stable to go. I discussed with the patient we are just waiting on pre-CERT from his insurance company before he can repeat return to [facility]. Patient voiced understanding. No abdominal pain and patient is tolerating p.o. diet without difficulty. Objective Data Objective Data Vital Signs: Vital Signs Temp Pulse Resp BP Pulse Ox O2 Del Method O2 Flow Rate 98 F 61 16 131/74 H 95 Room Air 2 03/15/22 16:00 03/15/22 16:00 03/15/22 16:00 03/15/22 16:00 03/15/22 16:00 03/15/22 16:00 03/11/22 02:28 Oxygen Flow Rate (L/min) 2 Oxygen Delivery Method Room Air Weight: 72.8 kg Body Mass Index (BMI) 20.8 Intake & Output: Intake and Output for Last 24 Hours 03/13/22 03/14/22 03/15/22 23:59 23:59 23:59 Intake Total 2226.0833 / 2426.0833 2833.50 / 2833.50 1397.5 / 1397.5 Output Total 700 / 1000 1250 / 1250 200 / 200 Balance 1526.0833 / 1426.0833 1583.50 / 1583.50 1197.5 / 1197.5 Lab / Micro Data Result Diagrams: 03/15/22 04:37 03/15/22 04:37 Labs: Laboratory Results - last 24 hr 03/15/22 04:37: WBC 6.1, RBC 2.93 L, Hgb 7.8 L, Hct 24.8 L, MCV 84.6, MCH 26.6 L, MCHC 31.5 L, RDW Std Deviation 52.0 H, RDW Coeff of Sekou 16.7 H, Plt Count 179, MPV 8.9, Immature Gran % (Auto) 0.700, Neut % (Auto) 73.4 H, Lymph % (Auto) 14.4 L, [place] % (Auto) 5.3, Eos % (Auto) 5.5 H, Baso % (Auto) 0.7, Absolute Neuts (auto) 4.5, Absolute Lymphs (auto) 0.87, Nucleated RBC % 0 03/15/22 04:37: Sodium 144, Potassium 3.6, Chloride 115 H, Carbon Dioxide 23.0, Anion Gap 6, BUN 11, Creatinine 0.80, Estim Creat Clear Calc 79.08, Est GFR (MDRD) Af Amer 120, Est GFR (MDRD) Non-Af 99, BUN/Creatinine Ratio 13.7, Glucose 77, Calcium 7.2 L, Total Bilirubin 2.70 H, Direct Bilirubin 2.40 H, AST 50 H, ALT 31, Alkaline Phosphatase 456 H, Total Protein 5.0 L, Albumin 1.1 L, Globulin 3.9 03/15/22 04:37: Vancomycin Trough 15.5 H Micro: Microbiology 03/11/22 00:51 Urine, Catheterized Urine Culture - Final Meth. resistant Staph. aureus 03/10/22 23:30 Blood Culture (Wb) - Anticubital Right Bacteria Detection (PCR) - Final Enterococcus faecium 03/10/22 23:30 Blood Culture (Wb) - Anticubital Right Blood Culture - Final Enterococcus faecium 03/11/22 00:51 Stool Stool Occult Blood (FLYNN) - Final Occult Blood Positive Physical Exam Const alert, oriented x3, no apparent distress and average body habitus Constitutional Narrative: Elderly, white male lying in bed, appears comfortable, nontoxic, light is off and patient is resting but awakens easily HEENT moist oral mucous membranes HEENT Narrative: Large bandage over scalp wound related to his recent zoster Head and Scalp: normocephalic Resp normal respiratory effort, no retractions, no use of accessory muscles and clear to auscultation bilaterally Auscultation: Negative for crackles, rhonchi or wheezes Cardio regular rate, regular rhythm, S1 normal heart sound, S2 normal heart sound, no murmurs, no rub, no gallops, no clicks and no JVD GI normal to inspection, nondistended, normoactive bowel sounds, soft to palpation and non-tender Extremity no clubbing, cyanosis or edema Extremity Narrative: 2+ pedal pulses Skin Skin Narrative: rash tissue over forehead Neuro oriented x3, moves all extremities and no focal motor deficits Neuro Narrative: Seems to have some generalized weakness however has been refusing participation with physical therapy Speech: speech normal Psych Psych Narrative: Remains grumpy Assessment & Plan Assessment/Plan (1) Sepsis: QUALIFIERS: Sepsis type: sepsis due to unspecified organism Sepsis acute organ dysfunction status: with acute organ dysfunction Severe sepsis acute organ dysfunction type: acute renal failure Acute renal failure type: unspecified Severe sepsis shock status: with septic shock Qualified Code(s): A41.9 - Sepsis, unspecified organism; R65.21 - Severe sepsis with septic shock; N17.9 - Acute kidney failure, unspecified (2) Choledocholithiasis: (3) GI (gastrointestinal bleed): (4) Atrial fibrillation: QUALIFIERS: Atrial fibrillation type: unspecified Qualified Code(s): I48.91 - Unspecified atrial fibrillation (5) AIYANA (acute kidney injury): (6) Acute blood loss anemia: (7) Bacteremia: (8) UTI (urinary tract infection): (9) Zoster ocular disease, unspecified: (10) Hypokalemia: PLAN: Plan Sepsis secondary to Enterococcus faecium bacteremia -Source is likely his gallbladder with choledocholithiasis and possible cholangitis -Continue Zosyn -Patient is now hemodynamically stable -Continue to monitor cultures -Source control with ERCP and 2 stones removed MRSA UTI -It was initially felt that this was not a true infection however with greater than 100,000 colony counts of staph aureus it will need to be treated -Source is unclear -Patient with persistent leukocytosis -Repeat blood cultures pending -Continue vancomycin -ID consulted-appreciate input -Patient to be discharged on oral antibiotics when pre-CERT is obtained as reflected in Dr. Quiñonez's note Choledocholithiasis -ERCP with stone extraction x2 performed on 03/13/2022 -GI following-appreciate input -Okay for discharge per GI -P.o. diet initiated patient tolerated well GI bleed secondary to oozing gastric ulcer -EGD done yesterday showed oozing gastric ulcer with visible vessel and treated with heater probe -Diet per GI -Continued Protonix 40 mg p.o. twice daily -Patient received 1 unit packed red blood cells on 03/14/2022 for hemoglobin of 6.6 - hemoglobin since has been stable in the mid 7 range -patient is not anticoagulated at baseline Acute blood loss anemia -Hemoglobin is now stabilized after transfusion on a.m. of 03/14/2022 -Hemoglobin 11 upon presentation but dropped -EGD with visible gastric vessel--> see plan above Hypokalemia -Resolved AIYANA -Resolved -Serum creatinine 0.80 Paroxysmal atrial fibrillation -Currently resolved -Likely related to sepsis -Echocardiogram done on 03/11/2022 demonstrated an EF of 55% with stage I diastolic dysfunction but no other abnormalities -No anticoagulation secondary to bleeding -Would recommend outpatient event monitor to assess for ongoing paroxysmal atrial fibrillation and hold off with anticoagulation at this time -No current rate controlling medications -Continue to monitor on telemetry Left-sided V1 and V2 zoster -Patient has been picking the skin off of his head -No current signs of infection -Dressing in place--> wound care images reviewed -Wound care is following -ID following BPH -Continue home Flomax DVT prophylaxis -Continue SCDs -Chemoprophylaxis contraindicated secondary to GI bleed CODE STATUS -full code Charges/Coding Visit Charges Inpatient E&M: 72577 Subs Hosp L2
[2022-03-15 21:30] VITALS: BP 119/57; PULSE 55; RESP 18; TEMP 36.6; O2SAT 97
[2022-03-15] MEDS: MELATONIN 10 MG TABLET PO (21:59)
--- NOTE | 2022-03-15 23:44 | NURSING ---
Pt keeps taking his dressing on his forehead off. will remain off due to pt keeps taking it off.
[2022-03-16 03:11] VITALS: BP 122/69; PULSE 58; RESP 17; TEMP 36.7; O2SAT 95
[2022-03-16] MEDS: oxyCODONE 5 MG Tablet PO ×3 (03:50→14:40)
[2022-03-16] MEDS: HYDROcodone Bitartrate/Apap 5/325 Tablet PO ×3 (05:46→20:45)
[2022-03-16] MEDS: 0.9% Saline Lock 10 ML Syringe IV (05:52)
--- NOTE | 2022-03-16 08:40 | PN_ITS ---
Subjective Subjective No issues overnight. No complaints. Hemoglobin is stable and no further transfusions required. Objective Data Objective Data Vital Signs: Vital Signs Temp Pulse Resp BP Pulse Ox O2 Del Method O2 Flow Rate 98.0 F 58 L 17 122/69 H 95 Room Air 2 03/16/22 03:11 03/16/22 03:11 03/16/22 03:11 03/16/22 03:11 03/16/22 03:11 03/16/22 03:40 03/11/22 02:28 Oxygen Flow Rate (L/min) 2 Oxygen Delivery Method Room Air Weight: 162 lb 4.163 oz Body Mass Index (BMI) 20.8 Intake & Output: Intake and Output for Last 24 Hours 03/14/22 03/15/22 03/16/22 23:59 23:59 23:59 Intake Total 2833.50 / 2833.50 2147.5 / 2147.5 50 / 50 Output Total 1250 / 1250 550 / 550 Balance 1583.50 / 1583.50 1597.5 / 1597.5 50 / 50 Lab / Micro Data Result Diagrams: 03/15/22 04:37 03/15/22 04:37 Micro: Microbiology 03/11/22 00:51 Urine, Catheterized Urine Culture - Final Meth. resistant Staph. aureus 03/10/22 23:30 Blood Culture (Wb) - Anticubital Right Bacteria Detection (PCR) - Final Enterococcus faecium 03/10/22 23:30 Blood Culture (Wb) - Anticubital Right Blood Culture - Final Enterococcus faecium 03/11/22 00:51 Stool Stool Occult Blood (FLYNN) - Final Occult Blood Positive Physical Exam Const alert, oriented x3, no apparent distress and average body habitus HEENT moist oral mucous membranes HEENT Narrative: Large bandage over scalp wound related to his recent zoster Head and Scalp: normocephalic Resp normal respiratory effort, no retractions, no use of accessory muscles and clear to auscultation bilaterally Auscultation: Negative for crackles, rhonchi or wheezes Cardio regular rate, regular rhythm, S1 normal heart sound, S2 normal heart sound, no murmurs, no rub, no gallops, no clicks and no JVD GI normal to inspection, nondistended, normoactive bowel sounds, soft to palpation and non-tender Extremity no clubbing, cyanosis or edema Extremity Narrative: 2+ pedal pulses Skin Skin Narrative: rash tissue over forehead Neuro oriented x3, moves all extremities and no focal motor deficits Neuro Narrative: Seems to have some generalized weakness however has been refusing participation with physical therapy Speech: speech normal Psych Psych Narrative: Remains grumpy Assessment & Plan Assessment/Plan (1) Choledocholithiasis: PLAN: Status post ERCP with stone removal and stent placement. I would place him on ursodiol 500 mg p.o. twice daily in the interim to prevent clogging of stent. He is having normal bowel movements. He is not having abdominal pain. Continue antibiotics as per ID. (2) GI (gastrointestinal bleed): PLAN: Agree to trend his hemoglobin. If he does continue to have a decreased h emoglobin he will need an outpatient colonoscopy. Patient can be discharged from GI standpoint. Charges/Coding Visit Charges Inpatient E&M: 47624 Subs Hosp L3
[2022-03-16 09:04] VITALS: BP 117/65; PULSE 58; RESP 16; TEMP 36.5; O2SAT 96
[2022-03-16] MEDS: Sertraline 50 MG Tablet 25 MG PO (09:11)
[2022-03-16] MEDS: Pantoprazole Sodium 40 MG Tablet PO ×2 (09:12→20:40)
[2022-03-16] MEDS: Tamsulosin HCl 0.4 MG Capsule PO (09:12)
[2022-03-16 11:13] LABS: Hemoglobin 8.3 g/dL (13.0-16.5); Mean Corp Hgb Conc 27.7 g/dL (32-36); Mean Corpuscular Hgb 25.6 pg (27.0-32.0); Mean Corpuscular Volume 92.6 fL (80-94); Mean Platelet Vol. 9.9 fl (6.2-12.0); POSITIVE COUNT YES; RBC Distribution Width CV 17.1 % (11.6-14.6); RBC Distribution Width SD 58.3 fl (35.1-43.9); Red Blood Count 3.24 M/mm3 (4.6-6.2); White Blood Count 4.7 K/mm3 (4.4-11.0)
[2022-03-16 11:15] LABS: Scan Indicated on CBC? Y/N YES- FLAGS NOTED
[2022-03-16 11:35] LABS: Platelet Count 81 K/mm3 (150-450)
[2022-03-16 15:00] VITALS: BP 122/67; PULSE 58; RESP 16; TEMP 36.8; O2SAT 97
--- NOTE | 2022-03-16 16:38 | PCM.PN.HOSP ---
Objective Data Objective Data Vital Signs: Vital Signs Temp Pulse Resp BP Pulse Ox O2 Del Method O2 Flow Rate 98.3 F 58 L 16 122/67 H 97 Room Air 2 03/16/22 15:00 03/16/22 15:00 03/16/22 15:00 03/16/22 15:00 03/16/22 15:00 03/16/22 15:00 03/11/22 02:28 Oxygen Flow Rate (L/min) 2 Oxygen Delivery Method Room Air Weight: 73.6 kg Body Mass Index (BMI) 20.8 Intake & Output: Intake and Output for Last 24 Hours 03/14/22 03/15/22 03/16/22 23:59 23:59 23:59 Intake Total 2833.50 / 2833.50 2147.5 / 2147.5 605 / 605 Output Total 1250 / 1250 550 / 550 400 / 400 Balance 1583.50 / 1583.50 1597.5 / 1597.5 205 / 205 Lab / Micro Data Result Diagrams: 03/16/22 11:00 03/15/22 04:37 Labs: Laboratory Results - last 24 hr 03/16/22 11:00: WBC 4.7, RBC 3.24 L, Hgb 8.3 L, Hct 30.0 L, MCV 92.6 D, MCH 25.6 L, MCHC 27.7 L D, RDW Std Deviation 58.3 H, RDW Coeff of Sekou 17.1 H, Plt Count 81 L, MPV 9.9 Micro: Microbiology 03/14/22 11:30 Blood Culture (Wb) - Anticubital Right Blood Culture - Preliminary No growth in 48 hours. 03/14/22 11:25 Blood Culture (Wb) - Right Hand Blood Culture - Preliminary No growth in 48 hours. 03/11/22 00:51 Urine, Catheterized Urine Culture - Final Meth. resistant Staph. aureus 03/10/22 23:30 Blood Culture (Wb) - Anticubital Right Bacteria Detection (PCR) - Final Enterococcus faecium 03/10/22 23:30 Blood Culture (Wb) - Anticubital Right Blood Culture - Final Enterococcus faecium 03/11/22 00:51 Stool Stool Occult Blood (FLYNN) - Final Occult Blood Positive Physical Exam Const alert, oriented x3, no apparent distress and average body habitus Constitutional Narrative: Elderly, white male lying in bed, appears comfortable, nontoxic, light is off and patient is resting but awakens easily HEENT moist oral mucous membranes HEENT Narrative: Large wound on left side of forehead related to recent zoster infection-patient keeps picking at this-dressing in place-no sign of infection Eyes Eyes Narrative: Left thigh is somewhat injected with erythematous conjunctiva inferiorly Resp normal respiratory effort, no retractions, no use of accessory muscles and clear to auscultation bilaterally Auscultation: Negative for crackles, rhonchi or wheezes Cardio regular rate, regular rhythm, S1 normal heart sound, S2 normal heart sound, no murmurs, no rub, no gallops and no clicks GI normal to inspection, nondistended, normoactive bowel sounds, soft to palpation and non-tender Extremity no clubbing, cyanosis or edema Extremity Narrative: 2+ pedal pulses Skin Skin Narrative: rash tissue over forehead Neuro oriented x3, moves all extremities and no focal motor deficits Neuro Narrative: Seems to have some generalized weakness however has been refusing participation with physical therapy Speech: speech normal Psych Psych Narrative: Remains grumpy Assessment & Plan Assessment/Plan (1) Sepsis: QUALIFIERS: Acute renal failure type: unspecified Sepsis acute organ dysfunction status: with acute organ dysfunction Sepsis type: sepsis due to unspecified organism Severe sepsis acute organ dysfunction type: acute renal failure Severe sepsis shock status: with septic shock Qualified Code(s): A41.9 - Sepsis, unspecified organism; R65.21 - Severe sepsis with septic shock; N17.9 - Acute kidney failure, unspecified (2) Choledocholithiasis: (3) GI (gastrointestinal bleed): (4) Atrial fibrillation: QUALIFIERS: Atrial fibrillation type: unspecified Qualified Code(s): I48.91 - Unspecified atrial fibrillation (5) AIYANA (acute kidney injury): (6) Acute blood loss anemia: (7) Bacteremia: (8) UTI (urinary tract infection): (9) Zoster ocular disease, unspecified: (10) Hypokalemia: PLAN: Plan Sepsis secondary to Enterococcus faecium bacteremia -Source is likely his gallbladder with choledocholithiasis and possible cholangitis -Continue Zosyn -Patient is now hemodynamically stable -Continue to monitor cultures -Source control with ERCP and 2 stones removed -Plan is for discharge on oral Bactrim and Augmentin for 5 more days at the time of discharge MRSA UTI -It was initially felt that this was not a true infection however with greater than 100,000 colony counts of staph aureus it will need to be treated -Source is unclear -Patient with persistent leukocytosis -Repeat blood cultures pending -Continue vancomycin -ID consulted-appreciate input -To be discharged on Augmentin and Bactrim for 5 more days at discharge Choledocholithiasis -ERCP with stone extraction x2 performed on 03/13/2022 -GI following-appreciate input -Okay for discharge per GI -P.o. diet initiated patient tolerated well GI bleed secondary to oozing gastric ulcer -EGD done yesterday showed oozing gastric ulcer with visible vessel and treated with heater probe -Diet per GI -Continue Protonix 40 mg p.o. twice daily -Patient received 1 unit packed red blood cells on 03/14/2022 for hemoglobin of 6.6 -Hemoglobin up to 8.3 today -patient is not anticoagulated at baseline Acute blood loss anemia -Hemoglobin is now stabilized after transfusion on a.m. of 03/14/2022 -Hemoglobin 11 upon presentation but dropped -EGD with visible gastric vessel--> see plan above AIYANA -Resolved -Serum creatinine 0.80 Paroxysmal atrial fibrillation -Currently resolved -Likely related to sepsis -Echocardiogram done on 03/11/2022 demonstrated an EF of 55% with stage I diastolic dysfunction but no other abnormalities -No anticoagulation secondary to bleeding -Would recommend outpatient event monitor to assess for ongoing paroxysmal atrial fibrillation and hold off with anticoagulation at this time -No current rate controlling medications -Continue to monitor on telemetry Left-sided V1 and V2 zoster -Patient has been picking the skin off of his head -No current signs of infection -Dressing in place--> wound care images reviewed -Wound care is following -ID following BPH -Continue home Flomax DVT prophylaxis -Continue SCDs -Chemoprophylaxis contraindicated secondary to GI bleed CODE STATUS -full code Charges/Coding Visit Charges Inpatient E&M: 29999 Subs Hosp L2
[2022-03-16 19:00] VITALS: PULSE 62
[2022-03-16] MEDS: MELATONIN 10 MG TABLET PO (20:39)
[2022-03-16 22:00] VITALS: BP 132/97; PULSE 58; RESP 16; TEMP 37.1; O2SAT 97
[2022-03-17 04:00] VITALS: BP 121/60; PULSE 56; RESP 18; TEMP 36.8; O2SAT 96
[2022-03-17 04:40] LABS: Absolute Lymphocyte Count 0.89 X10^3/uL (0.83-4.51); Absolute Neutrophil Count 3.8 X10^3/uL (2.0-7.7); Basophil# 0.06 X10^3/uL; Basophil% 1.1 % (0-1); Eosinophil# 0.29 X10^3/uL; Eosinophils% 5.5 % (0-5); Lymphocyte # 0.89 X10^3/ul (0.83-4.51); Lymphocyte % 16.7 % (19-41); Mean Corp Hgb Conc 30.8 g/dL (32-36); Mean Corpuscular Hgb 26.1 pg (27.0-32.0); Mean Platelet Vol. 9.6 fl (6.2-12.0); Monocyte# 0.24 X10^3/uL; Monocyte% 4.5 % (0-10); NRBC Flagged by Analyzer 0 % (0-5); Neutrophil # 3.79 X10^3/uL (2.7-7.7); Neutrophil % 71.3 % (47-70); Platelet Count 197 K/mm3 (150-450); RBC Distribution Width CV 16.9 % (11.6-14.6); RBC Distribution Width SD 52.8 fl (35.1-43.9); Red Blood Count 3.06 M/mm3 (4.6-6.2); White Blood Count 5.3 K/mm3 (4.4-11.0)
[2022-03-17 05:27] LABS: Anion Gap 7 (5-15); BUN 5 mg/dL (7-18); BUN/Creat Ratio 6.1 RATIO (10-20); Calcium,Total 7.3 mg/dL (8.5-10.1); Chloride 112 mmol/L (98-107); Creatinine, Serum 0.82 mg/dL (0.70-1.30); EST Glomerular Filtration Rate 97 mL/min (>60); Est Glom Filt Rate - Afr Amer 118 mL/min (>60); Glucose 64 mg/dL (74-106); Potassium 3.3 mmol/L (3.5-5.1); Sodium Level 141 mmol/L (136-145)
[2022-03-17 05:31] LABS: Vancomycin, Trough Level 23.4 ug/mL (5.0-15.0)
--- NOTE | 2022-03-17 05:58 | PCM.RX.CS ---
Consult Pharmacy has been consulted to manage selected antiobiotic: Vancomycin Type of Consult: Follow-up Labs: Sodium 141 mmol/L (136-145) 03/17/22 04:29 Potassium 3.3 mmol/L (3.5-5.1) L 03/17/22 04:29 Chloride 112 mmol/L (98-107) H 03/17/22 04:29 Carbon Dioxide 22.0 mmol/L (21.0-32.0) 03/17/22 04:29 Anion Gap 7 (5-15) 03/17/22 04:29 BUN 5 mg/dL (7-18) L 03/17/22 04:29 Creatinine 0.82 mg/dL (0.70-1.30) 03/17/22 04:29 Est GFR (MDRD) Af Amer 118 mL/min (>60) 03/17/22 04:29 Est GFR (MDRD) Non-Af 97 mL/min (>60) 03/17/22 04:29 BUN/Creatinine Ratio 6.1 RATIO (10-20) L 03/17/22 04:29 Glucose 64 mg/dL (74-106) L 03/17/22 04:29 Vancomycin Trough 23.4 ug/mL (5.0-15.0) H 03/17/22 04:29 Microbiology: Microbiology 03/14/22 11:30 Blood Culture (Wb) - Anticubital Right Blood Culture - Preliminary No growth in 48 hours. 03/14/22 11:25 Blood Culture (Wb) - Right Hand Blood Culture - Preliminary No growth in 48 hours. 03/11/22 00:51 Urine, Catheterized Urine Culture - Final Meth. resistant Staph. aureus 03/10/22 23:30 Blood Culture (Wb) - Anticubital Right Bacteria Detection (PCR) - Final Enterococcus faecium 03/10/22 23:30 Blood Culture (Wb) - Anticubital Right Blood Culture - Final Enterococcus faecium 03/11/22 00:51 Stool Stool Occult Blood (FLYNN) - Final Occult Blood Positive Goal Trough: 10-15 mcg/mL Pharmacy Plan for Drug Dosing: Pharmacy Service will continue to monitor and adjust dosing as required. TROUGH 23.4 @ 10.5 HOURS. HOLD CURRENT DOSE, DRAW RANDOM TROUGH IN 12 HOURS Follow-Up Labs: Trough Vancomycin Labs to be done on [date and time ordered]: 03/17 @ 1630
[2022-03-17] MEDS: HYDROcodone Bitartrate/Apap 5/325 Tablet PO ×2 (06:24→14:57)
--- NOTE | 2022-03-17 09:30 | CASEMGMT ---
ROBERTA received a call from [facility] stating patient can return today. ROBERTA notified physician. Await orders. Plan: d/c back to [facility] under intermediate level of care. Shira VALADEZ
[2022-03-17 10:08] VITALS: BP 129/66; PULSE 59; RESP 18; TEMP 36.8; O2SAT 94
[2022-03-17] MEDS: Pantoprazole Sodium 40 MG Tablet PO (10:09)
[2022-03-17] MEDS: Sertraline 50 MG Tablet 25 MG PO (10:09)
[2022-03-17] MEDS: Tamsulosin HCl 0.4 MG Capsule PO (10:09)
--- NOTE | 2022-03-17 14:38 | CASEMGMT ---
Per RN patient's daughter does not want patient discharged. RN is notifying physician. SW notified [facility] admissions via [facility] of this issue. Plan: d/c back to [facility] under intermediate level of care. Shira VALADEZ
[2022-03-17 15:16] LABS: Hemoglobin 8.7 g/dL (13.0-16.5)
--- NOTE | 2022-03-17 15:55 | CASEMGMT ---
Patient's Hemoglobin has been re-checked and it is trending up so physician will still d/c patient. SW sent hemoglobin number to [facility] via [facility] and notified them patient will still be coming. Plan: d/c back to [facility] under intermediate level of care. Shira Javier [employer]
--- NOTE | 2022-03-17 16:19 | PCM.TXEXTCAR ---
Diet Diet Order/Speech Therapy: 03/13/22 17:34 Diet: Regular - General Is pt able to select menu?: No Diet Comments: ok for pills w/ sips Routine Orders/Code Status Code Status: Full Code Wound(s) Left forehead/ brow/ adventist: Wound Type: healing wound s/p shingles Dressing Change: Adaptic Therapies Weight Bearing: resume previous activity Problem/Diagnosis (1) Sepsis: Status: Acute Code(s): A41.9 - Sepsis, unspecified organism Comment: Enterococcus faecium (2) Choledocholithiasis: Status: Acute Code(s): K80.50 - Calculus of bile duct without cholangitis or cholecystitis without obstruction (3) GI (gastrointestinal bleed): Status: Acute Code(s): K92.2 - Gastrointestinal hemorrhage, unspecified Comment: gastric ulcer (4) Atrial fibrillation: Status: Acute Code(s): I48.91 - Unspecified atrial fibrillation Comment: paroxysmal (5) AIYANA (acute kidney injury): Status: Acute Code(s): N17.9 - Acute kidney failure, unspecified (6) Acute blood loss anemia: Status: Acute Code(s): D62 - Acute posthemorrhagic anemia (7) Bacteremia: Status: Acute Code(s): R78.81 - Bacteremia (8) UTI (urinary tract infection): Status: Acute Code(s): N39.0 - Urinary tract infection, site not specified Comment: MRSA (9) Zoster ocular disease, unspecified: Status: Acute Code(s): B02.30 - Zoster ocular disease, unspecified (10) Hypokalemia: Status: Acute Code(s): E87.6 - Hypokalemia (11) Cholangitis: Status: Acute Code(s): K83.09 - Other cholangitis Allergies/Procedures Done in Hospital Allergies allopurinol Allergy (Intermediate, Verified 05/13/21 11:28) UNK Procedures: 2-D Echocardiogram, Blood transfusion, EGD and - (ERCP with lithotripsy and biliary sphincterotomy) Type of Care/Length of Stay Estimated LOS: More Than 30 Days Type of Care Needed: Intermediate Rehab Potential: Poor Prognosis: Poor Additional Orders/Day of Discharge H&P will serve as current which was dated: 03/11/22 Day of Discharge: 03/17/22 Dietary and Speech Recommendations Dietitian Recommendations/Changes: will continue regular diet until adequate PO intake is established; will add ensure plus high protein 120mL 4x/day w/ medpass for additional calories/protein if consumed Discharge Plan Admission Admit Date/Time: 03/11/22 01:45 Primary Reason for Your Visit: sepsis, gastric ulcer, GI bleed, choledocholithiasis Attending Provider: Richard Gonzalez Primary Care Provider: Care Physician,No Primary Consulting Providers: Jamie Powell ; Chay Cornelius ; Ramesh Grimaldo ; Tr Quiñonez ; Marcie Syed Instructions Additional Instructions / Restrictions: See Dr Cornelius for follow up, biliary stent will need removal Discharge Orders/Prescriptions Prescriptions: New sulfamethoxazole-trimethoprim [Bactrim DS] 800-160 mg tablet 1 tab PO BID 5 Days Qty: 10 0RF amoxicillin-pot clavulanate 875-125 mg tablet 1 tab PO BID Qty: 10 0RF hydrocodone-acetaminophen 5-325 mg Tablet 1 tab PO Q8 2 Days Qty: 6 0RF pantoprazole 40 mg Tablet,Delayed Release (Dr/Ec) 40 mg PO BID Qty: 60 0RF ursodiol 500 mg tablet 500 mg PO BID Qty: 1 0RF Continued melatonin 10 mg Tablet 10 mg PO QHS tamsulosin 0.4 mg Capsule 0.4 mg PO DAILY sertraline [Zoloft] 25 mg Tablet 25 mg PO DAILY Discontinued hydrocodone-acetaminophen 5-325 mg tablet 1 tab PO Q8 promethazine 25 mg/mL solution 25 mg IM Q8 No Action acetaminophen 500 mg Tablet 500 mg PO Q8 PRN (Reason: Pain) Referrals / Follow Up: Chay Cornelius DO [Med Staff - Active Staff] - See Referral Note (in two weeks) Care Physician,No Primary [Primary Care Provider] - Disposition Disposition (needs filled in before D/C Order can be placed): Intermediate Facility (1) Sepsis Qualifiers: Sepsis type: sepsis due to unspecified organism Sepsis acute organ dysfunction status: with acute organ dysfunction Severe sepsis acute organ dysfunction type: acute renal failure Acute renal failure type: unspecified Severe sepsis shock status: with septic shock Qualified Code(s): A41.9 - Sepsis, unspecified organism; R65.21 - Severe sepsis with septic shock; N17.9 - Acute kidney failure, unspecified (2) Atrial fibrillation Qualifiers: Atrial fibrillation type: unspecified Qualified Code(s): I48.91 - Unspecified atrial fibrillation
--- NOTE | 2022-03-17 16:42 | PCM.PROGNOTE ---
Subjective Subjective Patient is doing well without any complaints at this time. He denies any nausea and is tolerating regular diet. Objective Data Objective Data Vital Signs: Vital Signs Temp Pulse Resp BP Pulse Ox O2 Del Method O2 Flow Rate 98.3 F 59 L 18 129/66 H 94 Room Air 2 03/17/22 10:08 03/17/22 10:08 03/17/22 10:08 03/17/22 10:08 03/17/22 10:08 03/17/22 10:08 03/11/22 02:28 Oxygen Flow Rate (L/min) 2 Oxygen Delivery Method Room Air Weight: 161 lb 13.109 oz Body Mass Index (BMI) 20.8 Intake & Output: Intake and Output for Last 24 Hours 03/15/22 03/16/22 03/17/22 23:59 23:59 23:59 Intake Total 2147.5 / 2147.5 1515 / 1515 220 / 220 Output Total 550 / 550 400 / 700 1350 / 1350 Balance 1597.5 / 1597.5 1115 / 815 -1130 / -1130 Lab / Micro Data Result Diagrams: 03/17/22 15:00 03/17/22 04:29 Labs: Laboratory Results - last 24 hr 03/17/22 04:29: Vancomycin Trough 23.4 H 03/17/22 04:29: WBC 5.3, RBC 3.06 L, Hgb 8.0 L, Hct 26.0 L, MCV 85.0 D, MCH 26.1 L, MCHC 30.8 L D, RDW Std Deviation 52.8 H, RDW Coeff of Sekou 16.9 H, Plt Count 197, MPV 9.6, Immature Gran % (Auto) 0.900, Neut % (Auto) 71.3 H, Lymph % (Auto) 16.7 L, [place] % (Auto) 4.5, Eos % (Auto) 5.5 H, Baso % (Auto) 1.1 H, Absolute Neuts (auto) 3.8, Absolute Lymphs (auto) 0.89, Nucleated RBC % 0 03/17/22 04:29: Sodium 141, Potassium 3.3 L, Chloride 112 H, Carbon Dioxide 22.0, Anion Gap 7, BUN 5 L, Creatinine 0.82, Estim Creat Clear Calc 77.90, Est GFR (MDRD) Af Amer 118, Est GFR (MDRD) Non-Af 97, BUN/Creatinine Ratio 6.1 L, Glucose 64 L, Calcium 7.3 L 03/17/22 15:00: Hgb 8.7 L Micro: Microbiology 03/14/22 11:30 Blood Culture (Wb) - Anticubital Right Blood Culture - Preliminary No growth in 48 hours. 03/14/22 11:25 Blood Culture (Wb) - Right Hand Blood Culture - Preliminary No growth in 48 hours. 03/11/22 00:51 Urine, Catheterized Urine Culture - Final Meth. resistant Staph. aureus 03/10/22 23:30 Blood Culture (Wb) - Anticubital Right Bacteria Detection (PCR) - Final Enterococcus faecium 03/10/22 23:30 Blood Culture (Wb) - Anticubital Right Blood Culture - Final Enterococcus faecium 03/11/22 00:51 Stool Stool Occult Blood (FLYNN) - Final Occult Blood Positive Physical Exam Const alert, oriented x3, no apparent distress and average body habitus Constitutional Narrative: Elderly, white male lying in bed, appears comfortable, nontoxic, light is off and patient is resting but awakens easily HEENT moist oral mucous membranes HEENT Narrative: Large wound on left side of forehead related to recent zoster infection-patient keeps picking at this-dressing in place-no sign of infection Eyes Eyes Narrative: Left thigh is somewhat injected with erythematous conjunctiva inferiorly Resp normal respiratory effort, no retractions, no use of accessory muscles and clear to auscultation bilaterally Auscultation: Negative for crackles, rhonchi or wheezes Cardio regular rate, regular rhythm, S1 normal heart sound, S2 normal heart sound, no murmurs, no rub, no gallops and no clicks GI normal to inspection, nondistended, normoactive bowel sounds, soft to palpation and non-tender Extremity no clubbing, cyanosis or edema Extremity Narrative: 2+ pedal pulses Skin Skin Narrative: rash tissue over forehead Neuro oriented x3, moves all extremities and no focal motor deficits Neuro Narrative: Seems to have some generalized weakness however has been refusing participation with physical therapy Speech: speech normal Psych Psych Narrative: Remains grumpy Charges/Coding Visit Charges Inpatient E&M: 94451 Subs Hosp L2
--- NOTE | 2022-03-17 16:57 | PCM.DC.SUM ---
Providers Date of Admission: 03/11/22 Date of Discharge: 03/17/22 Primary Care Physician: Deja Primary Care Phys Consultations 03/11/22 02:26 Consult: Gastroenterology Routine Consulting Provider: Chay Cornelius Reason for Consult: ABLA EMERGENT Consult: No MD Notified: Yes Date Notified: 03/11/22 Time Notified: 10:43 Method of Notification: Verbal 03/12/22 04:56 Consult: Onc/Wound/inspector balance truing Routine Comment: Reason for Consult:: head wound 03/12/22 14:26 Consult: Onc/Wound/inspector balance truing Routine Comment: 03/13/22 16:02 Consult: Infectious Disease Routine Consulting Provider: Tr Quiñonez Reason for Consult: E. faecium Bacteremia/MRSA UTI EMERGENT Consult: No MD Notified: Yes Date Notified: 03/13/22 Time Notified: 17:29 Method of Notification: Answering Service Reason For Visit: SEPSIS Diagnosis Discharge Diagnosis (1) Sepsis: Status: Acute Code(s): A41.9 - Sepsis, unspecified organism Qualifiers: Acute renal failure type: unspecified Sepsis acute organ dysfunction status: with acute organ dysfunction Sepsis type: sepsis due to unspecified organism Severe sepsis acute organ dysfunction type: acute renal failure Severe sepsis shock status: with septic shock Qualified Code(s): A41.9 - Sepsis, unspecified organism; R65.21 - Severe sepsis with septic shock; N17.9 - Acute kidney failure, unspecified (2) Choledocholithiasis: Status: Acute Code(s): K80.50 - Calculus of bile duct without cholangitis or cholecystitis without obstruction (3) GI (gastrointestinal bleed): Status: Acute Code(s): K92.2 - Gastrointestinal hemorrhage, unspecified (4) Atrial fibrillation: Status: Acute Code(s): I48.91 - Unspecified atrial fibrillation Qualifiers: Atrial fibrillation type: unspecified Qualified Code(s): I48.91 - Unspecified atrial fibrillation (5) AIYANA (acute kidney injury): Status: Acute Code(s): N17.9 - Acute kidney failure, unspecified (6) Acute blood loss anemia: Status: Acute Code(s): D62 - Acute posthemorrhagic anemia (7) Bacteremia: Status: Acute Code(s): R78.81 - Bacteremia (8) UTI (urinary tract infection): Status: Acute Code(s): N39.0 - Urinary tract infection, site not specified (9) Zoster ocular disease, unspecified: Status: Acute Code(s): B02.30 - Zoster ocular disease, unspecified (10) Hypokalemia: Status: Acute Code(s): E87.6 - Hypokalemia (11) Cholangitis: Status: Acute Code(s): K83.09 - Other cholangitis Plan 1 sepsis secondary to Enterococcus faecium bacteremia from cholecystitis and cholangitis #2 cholecystitis with cholangitis #3 MRSA UTI #4 choledocholithiasis #5 acute upper GI hemorrhage secondary to bleeding gastric ulcer #6 paroxysmal atrial fibrillation #7 chronic debility secondary to multiple medical problems and advanced age #8 acute blood loss anemia secondary to acute gastric hemorrhage from ulcer, requiring blood transfusion Medications at Discharge Home Medications acetaminophen 500 mg tablet 500 mg PO Q8 PRN Pain 09/05/21 melatonin 10 mg tablet 10 mg PO QHS Sleep 09/05/21 tamsulosin 0.4 mg capsule 0.4 mg PO DAILY Bladder Spasm 09/05/21 sertraline 25 mg tablet (Zoloft) 25 mg PO DAILY Depression 03/11/22 amoxicillin 875 mg-potassium clavulanate 125 mg tablet 1 tab PO BID #10 tabs 03/15/22 sulfamethoxazole 800 mg-trimethoprim 160 mg tablet (Bactrim DS) 1 tab PO BID 5 days #10 tabs 03/15/22 hydrocodone-acetaminophen 5-325mg 5mg-325mg 1 tab PO Q8 2 days #6 tabs 03/17/22 pantoprazole 40 mg tablet,delayed release 40 mg PO BID #60 tabs 03/17/22 ursodiol 500 mg tablet 500 mg PO BID #1 TAB 03/17/22 Hospital Course Operations None Procedures 2-D Echocardiogram, Blood transfusion, EGD (With treatment of gastric ulcer with heater probe), Paracentesis and - (ERCP with biliary sphincterotomy and balloon extraction of stone along with biopsy in the upper third of the main bile duct and lithotripsy) Summary of Care Provided Minutes Spent on Discharge: 31 Hospital Course: This 76-year-old white male was [facility] a [facility] which [facility] chronically due to decreased mental status with bouts of vomiting that appeared to contain blood. Upon arrival to the emergency room, patient was noted to be obtunded and was responsive to sternal rub only, but his airway was protected and he would move all extremities and reaction to pain. Blood pressure was noted to be low at 55/44, he was given IV fluids and his blood pressure improved. Mental status also improved with the elevation of blood pressure. Hematemesis was noted on the patient's shirt and the patient was given IV Protonix and placed on an IV Protonix drip. Patient's mental status improved somewhat in the emergency room, labs showed an elevated white blood cell count-patient was felt to be septic. Potassium was noted to be low at 3, creatinine was elevated 1.62 and glucose was 179. Urinalysis showed 10-25 WBCs and +2 bacteria as well as positive nitrite. Patient was admitted to ICU, he was seen in consultation by critical care, he was maintained on IV antibiotics and seen in consultation by gastroenterology. Gastroenterology performed an ERCP and performed a sphincterotomy with removal of stones within the biliary tract and treatment of a gastric ulcer with heater probe. Patient was seen in consultation by infectious diseases, blood cultures were positive for Enterococcus faecium, urine culture was positive for methicillin-resistant staph aureus. Patient received a single unit of blood transfusion during his hospital stay. Patient was ultimately transferred to PCU, seen by PT and OT, and ultimately was stable for return to his intermediate nursing facility. On 03/17/2022, patient was seen and examined: On examination he appeared frail and older than his stated age. Vital signs as documented. Skin warm and dry Neck without JVD, neck was supple, trachea midline, thyroid was normal. Lungs clear bilaterally, normal air movement was noted. Heart exam notable for irregular rhythm, normal sounds and absence of murmurs, rubs or gallops. Abdomen unremarkable and without evidence of organomegaly, masses, or abdominal aortic enlargement. Bowel sounds are present, abdomen is not distended. Extremities nonedematous, no cyanosis was noted, no clubbing was noted. Neuro: Cranial nerves II through XII are grossly intact, no focal motor deficits were noted, sensation to light touch and pinprick intact, motor exam 5/5 throughout. Psych: Patient is alert and oriented x3, he does not appear anxious or depressed, he does not appear agitated. Patient was discharged in stable condition on 03/17/2022 to an intermediate extended care facility. Weight / BMI Weight Weight: 73.4 kg Body Mass Index (BMI) 20.8 ABG / Lab / Microbiology Data Result Diagrams: 03/17/22 15:00 03/17/22 04:29 Laboratory: Laboratory Results - last 24 hr 03/17/22 04:29: Vancomycin Trough 23.4 H 03/17/22 04:29: WBC 5.3, RBC 3.06 L, Hgb 8.0 L, Hct 26.0 L, MCV 85.0 D, MCH 26.1 L, MCHC 30.8 L D, RDW Std Deviation 52.8 H, RDW Coeff of Sekou 16.9 H, Plt Count 197, MPV 9.6, Immature Gran % (Auto) 0.900, Neut % (Auto) 71.3 H, Lymph % (Auto) 16.7 L, [place] % (Auto) 4.5, Eos % (Auto) 5.5 H, Baso % (Auto) 1.1 H, Absolute Neuts (auto) 3.8, Absolute Lymphs (auto) 0.89, Nucleated RBC % 0 03/17/22 04:29: Sodium 141, Potassium 3.3 L, Chloride 112 H, Carbon Dioxide 22.0, Anion Gap 7, BUN 5 L, Creatinine 0.82, Estim Creat Clear Calc 77.90, Est GFR (MDRD) Af Amer 118, Est GFR (MDRD) Non-Af 97, BUN/Creatinine Ratio 6.1 L, Glucose 64 L, Calcium 7.3 L 03/17/22 15:00: Hgb 8.7 L Microbiology: Microbiology 03/14/22 11:30 Blood Culture (Wb) - Anticubital Right Blood Culture - Preliminary No growth in 48 hours. 03/14/22 11:25 Blood Culture (Wb) - Right Hand Blood Culture - Preliminary No growth in 48 hours. 03/11/22 00:51 Urine, Catheterized Urine Culture - Final Meth. resistant Staph. aureus 03/10/22 23:30 Blood Culture (Wb) - Anticubital Right Bacteria Detection (PCR) - Final Enterococcus faecium 03/10/22 23:30 Blood Culture (Wb) - Anticubital Right Blood Culture - Final Enterococcus faecium 03/11/22 00:51 Stool Stool Occult Blood (FLYNN) - Final Occult Blood Positive Meaningful Use Info Meaningful Use Diagnoses (Choose all that apply): None applicable Discharge Plan Admission Admit Date/Time: 03/11/22 01:45 Primary Reason for Your Visit: sepsis, gastric ulcer, GI bleed, choledocholithiasis Attending Provider: Richard Gonzalez Primary Care Provider: Umer Decker,Deja Primary Consulting Providers: Jamie Powell ; Chay Cornelius ; Ramesh Grimaldo ; Tr Quiñonez ; Marcie Syed Instructions Additional Instructions / Restrictions: See Dr Cornelius for follow up, biliary stent will need removal Discharge Orders/Prescriptions Prescriptions: New sulfamethoxazole-trimethoprim [Bactrim DS] 800-160 mg tablet 1 tab PO BID 5 Days Qty: 10 0RF amoxicillin-pot clavulanate 875-125 mg tablet 1 tab PO BID Qty: 10 0RF hydrocodone-acetaminophen 5-325 mg Tablet 1 tab PO Q8 2 Days Qty: 6 0RF pantoprazole 40 mg Tablet,Delayed Release (Dr/Ec) 40 mg PO BID Qty: 60 0RF ursodiol 500 mg tablet 500 mg PO BID Qty: 1 0RF Continued melatonin 10 mg Tablet 10 mg PO QHS tamsulosin 0.4 mg Capsule 0.4 mg PO DAILY sertraline [Zoloft] 25 mg Tablet 25 mg PO DAILY Discontinued hydrocodone-acetaminophen 5-325 mg tablet 1 tab PO Q8 promethazine 25 mg/mL solution 25 mg IM Q8 No Action acetaminophen 500 mg Tablet 500 mg PO Q8 PRN (Reason: Pain) Referrals / Follow Up: Chay Cornelius DO [Med Staff - Active Staff] - See Referral Note (in two weeks) Care Physician,No Primary [Primary Care Provider] - Disposition Disposition (needs filled in before D/C Order can be placed): Senior Living Facility Charges/Coding Visit Charges Inpatient E&M: 21809 Disch Hosp >30min
[2022-03-17 17:07] LABS: Vancomycin, Random Level 19.1 ug/mL (0.0-15.0)
[2022-03-17 17:51] VITALS: BP 108/61; PULSE 56; RESP 18; TEMP 36.8; O2SAT 96
--- NOTE | 2022-03-17 18:24 | NURSING ---
Report called to Michelle at [facility], transport here to take patient at this time.
== END 2022-03-17 18:38 | disposition skilled nursing facility (03) | DRG 871 ==
LOC: ED 03-11 01:50 → ICU 03-11 03:53 → PCU 03-11 14:24
PROVIDERS: Family Medicine; Internal Medicine; Internal Medicine Gastroenterology; Admitting Provider Hospitalist; Emergency Provider Emergency Medicine; Visit Provider Internal Medicine
PROC: 0FC98ZZ Extirpation of Matter from Common Bile Duct, Via Natural or Artificial Opening Endoscopic (ICD-10-PCS; CPT 43260; principal; 2022-03-13 11:40)
DX: A41.81 Sepsis due to Enterococcus (principal); G93.41 Metabolic encephalopathy; N17.0 Acute kidney failure with tubular necrosis; R65.21 Severe sepsis with septic shock; K25.4 Chronic or unspecified gastric ulcer with hemorrhage; I50.32 Chronic diastolic (congestive) heart failure; I13.0 Hypertensive heart and chronic kidney disease with heart failure and stage 1 through stage 4 chronic kidney disease, or unspecified chronic kidney disease; D68.59 Other primary thrombophilia; K80.31 Calculus of bile duct with cholangitis, unspecified, with obstruction; E87.0 Hyperosmolality and hypernatremia; E87.3 Alkalosis; D62 Acute posthemorrhagic anemia; K80.71 Calculus of gallbladder and bile duct without cholecystitis with obstruction; K80.40 Calculus of bile duct with cholecystitis, unspecified, without obstruction; E87.29 Other acidosis; N39.0 Urinary tract infection, site not specified; B02.30 Zoster ocular disease, unspecified; F03.90 Unspecified dementia, unspecified severity, without behavioral disturbance, psychotic disturbance, mood disturbance, and anxiety; I48.0 Paroxysmal atrial fibrillation; K83.8 Other specified diseases of biliary tract; N18.2 Chronic kidney disease, stage 2 (mild); K80.50 Calculus of bile duct without cholangitis or cholecystitis without obstruction; E87.8 Other disorders of electrolyte and fluid balance, not elsewhere classified; I25.10 Atherosclerotic heart disease of native coronary artery without angina pectoris; E87.6 Hypokalemia; E78.2 Mixed hyperlipidemia; K57.30 Diverticulosis of large intestine without perforation or abscess without bleeding; K44.9 Diaphragmatic hernia without obstruction or gangrene; B95.2 Enterococcus as the cause of diseases classified elsewhere; F32.A Depression, unspecified; B95.62 Methicillin resistant Staphylococcus aureus infection as the cause of diseases classified elsewhere
CPT/HCPCS: 36415; 36600; 70450; 71260; 74177; 74330; 76000; 80048; 80053; 80076; 80202; 81001; 82140; 82274; 82803; 83605; 83735; 84100; 84145; 84443; 85014; 85018; 85025; 85027; 85610; 85730; 86850; 86900; 86901; 86920; 86922; 87040; 87077; 87086; 87088; 87149; 87186; 87811; 93005; 93306; 97802; 97803; 99284; J7030; J7040; J7050; J7120; P9016; Q9957; Q9967; A4216; J0295; J2405; J3490

== ENCOUNTER 2022-04-14 17:24 | Emergency (ER) | payer MEDICARE, MEDICAID, SELFPAY ==
[2022-04-14 17:25] VITALS: BP 112/70; PULSE 89; RESP 16; TEMP 36.3; O2SAT 100; BMI 19.5
[2022-04-14 17:50] LABS: Absolute Lymphocyte Count 1.38 X10^3/uL (0.83-4.51); Absolute Neutrophil Count 7.1 X10^3/uL (2.0-7.7); Basophil# 0.06 X10^3/uL; Basophil% 0.7 % (0-1); Eosinophil# 0.11 X10^3/uL; Eosinophils% 1.2 % (0-5); Hematocrit 30.3 % (40-54); Lymphocyte # 1.38 X10^3/ul (0.83-4.51); Lymphocyte % 15.1 % (19-41); Mean Corpuscular Hgb 28.7 pg (27.0-32.0); Mean Corpuscular Volume 87.1 fL (80-94); Mean Platelet Vol. 8.7 fl (6.2-12.0); Monocyte# 0.41 X10^3/uL; Monocyte% 4.5 % (0-10); NRBC Flagged by Analyzer 0 % (0-5); Neutrophil # 7.14 X10^3/uL (2.7-7.7); Neutrophil % 78.1 % (47-70); POSITIVE MORPHOLOGY YES; Platelet Count 350 K/mm3 (150-450); RBC Distribution Width CV 21.9 % (11.6-14.6); RBC Distribution Width SD 68.1 fl (35.1-43.9); Red Blood Count 3.48 M/mm3 (4.6-6.2); White Blood Count 9.1 K/mm3 (4.4-11.0)
[2022-04-14 17:53] LABS: Differential Indicated SCAN CRITERIA MET
--- NOTE | 2022-04-14 17:55 | EDS_ITS ---
HPI History of Present Illness Chief Complaint: Abn Labs Informant: patient Narrative Narrative: Patient sent in from [facility] secondary to hypokalemia. Patient states has been having some intermittent diarrhea. Lab work that was sent along indicates his potassium has been running between 2.9 and 3.1 for the last 10 days or so. He states he has been on oral potassium replacement. He denies any complaints other than the diarrhea. [facility] Medical History Arthritis Atherosclerotic heart disease of [place] coronary artery without angina pectoris Atrial fibrillation BMI 29.0-29.9,adult Cancer Chronic kidney disease, stage 2 (mild) Exertional dyspnea Fatty liver Gastric reflux Generalized pruritus High cholesterol History of echocardiogram History of pain when walking Hypertension Hypokalemia Low vitamin B12 level Lymphoma Mixed hyperlipidemia Restless legs Stroke/cerebrovascular accident Syncope Walker as ambulation aid Zoster ocular disease, unspecified Home Medications acetaminophen 500 mg tablet 500 mg PO Q8 PRN Pain 09/05/21 [History Last Taken Unknown] melatonin 10 mg tablet 10 mg PO QHS Sleep 09/05/21 [History Last Taken Unknown] tamsulosin 0.4 mg capsule 0.4 mg PO DAILY Bladder Spasm 09/05/21 [History Last Taken Unknown] sertraline 25 mg tablet (Zoloft) 25 mg PO DAILY Depression 03/11/22 [History Last Taken Unknown] amoxicillin 875 mg-potassium clavulanate 125 mg tablet 1 tab PO BID #10 tabs 03/15/22 [Rx Last Taken Unknown] sulfamethoxazole 800 mg-trimethoprim 160 mg tablet (Bactrim DS) 1 tab PO BID 5 days #10 tabs 03/15/22 [Rx Last Taken Unknown] hydrocodone-acetaminophen 5-325mg 5mg-325mg 1 tab PO Q8 2 days #6 tabs 03/17/22 [Rx Last Taken Unknown] pantoprazole 40 mg tablet,delayed release 40 mg PO BID #60 tabs 03/17/22 [Rx Last Taken Unknown] ursodiol 500 mg tablet 500 mg PO BID #1 TAB 03/17/22 [Rx Last Taken Unknown] Allergy/AdvReac Type Severity Reaction Status Date / Time allopurinol Allergy Intermediate UNK Verified 04/14/22 17:28 Family History Father Emphysema of lung COPD (chronic obstructive pulmonary disease) Mother Cancer Surgical History History of cholecystectomy Social History Smoking Status: Never smoker Electronic Cigarette Use: not used second hand exposure: No alcohol intake: never substance use type: does not use ROS ROS ED Constitutional Constitutional ED: Denies chills or fever(s) Eyes Eyes: Denies change in vision or discharge from eye(s) ENT ENT ED: Denies discharge from eye(s), rhinorrhea or sore throat Cardiovascular Cardiovascular: Denies chest pain or palpitations Respiratory/Chest Respiratory/Chest: Denies cough or dyspnea Gastrointestinal Gastrointestinal: Reports diarrhea; Denies abdominal pain, nausea or vomiting Genitourinary Genitourinary ED: Denies dysuria Musculoskeletal Musculoskeletal: Denies back pain or extremity pain Integumentary Reports rash; Denies Abrasions Neurologic Neurologic: Denies headache(s) or weakness Psychiatric Psychiatric: Denies anxiety or depression Allergic/Immunologic Allergic/Immunologic ED: Denies lip swelling or urticaria EXAM Physical Exam Const Vital Signs: 04/14/22 17:25 04/14/22 17:28 04/14/22 20:15 Temperature 97.3 F L Temperature Source Temporal Pulse Rate 89 81 Respiratory Rate 16 21 H Respiratory Effort Normal Non-Labored Respiratory Pattern Normal Blood Pressure 112/70 104/65 Blood Pressure Mean 84 78 Pulse Ox 100 Oxygen Delivery Method Room Air 04/14/22 21:30 04/14/22 22:08 Temperature Temperature Source Pulse Rate 84 95 Respiratory Rate Respiratory Effort Respiratory Pattern Blood Pressure 122/71 H Blood Pressure Mean 88 Pulse Ox Oxygen Delivery Method Positive well nourished and well developed General Appearance ED: well developed HEENT Reports normocephalic and head/scalp atraumatic HEENT Narrative: Skin sloughing to the left periorbital/left forehead region secondary to recent shingles infection. Eyes PERRL and EOMs intact bilaterally Neck supple Chest Wall inspection of chest normal and palpation of chest normal Resp normal respiratory effort and clear to auscultation bilaterally Cardio regular rate and regular rhythm GI non-tender Auscultation: hypoactive bowel sounds Palpation: soft Extremity normal to inspection Neuro oriented x3 and no sensory deficits noted Sensorium / Orientation: alert Motor Exam: strength 5/5 throughout Psych mental status grossly normal MDM MDM MDM Narrative Medical decision making narrative: Patient placed on cardiac sonographer. EKG obtained given hypokalemia to evaluate for dysrhythmia. Chemistry studies obtained to evaluate for leukocytosis, anemia, electrolyte derangement. IV potassium chloride ordered as the patient has not had improvement when given oral replacement. Lab Data Attestation: I reviewed the patient's lab results. Labs: Laboratory Results - last 24 hr 04/14/22 04/14/22 17:32 17:32 WBC 9.1 RBC 3.48 L Hgb 10.0 L Hct 30.3 L MCV 87.1 MCH 28.7 MCHC 33.0 RDW Std Deviation 68.1 H RDW Coeff of Sekou 21.9 H Plt Count 350 MPV 8.7 Immature Gran % (Auto) 0.400 Neut % (Auto) 78.1 H Lymph % (Auto) 15.1 L [place] % (Auto) 4.5 Eos % (Auto) 1.2 Baso % (Auto) 0.7 Absolute Neuts (auto) 7.1 Absolute Lymphs (auto) 1.38 Nucleated RBC % 0 Differential Comment SCANNED Sodium 141 Potassium 3.3 L Chloride 109 H Carbon Dioxide 22.0 Anion Gap 10 BUN 7 Creatinine 0.86 Estim Creat Clear Calc 62.78 Est GFR (MDRD) Af Amer 112 Est GFR (MDRD) Non-Af 92 BUN/Creatinine Ratio 8.2 L Glucose 87 Calcium 7.6 L Magnesium 1.4 L Total Bilirubin 2.10 H Direct Bilirubin 1.25 H AST 28 ALT 12 L Alkaline Phosphatase 335 H Total Protein 6.4 Albumin 1.4 L Globulin 5.0 H Treatment and Re-Evaluation Narrative: CBC was normal white count at 9.1. Hemoglobin is 10.0. Chemistry studies reveal potassium of 3.3. On review of prior records it appears that his potassium has been about this for the last year or so. LFTs reveal total bili of 2.1 and a direct bili 1.25. ALT and AST are normal. Alk phos is 335 which is actually improved when compared to prior values. Patient is ordered 40 mEq of IV potassium. On repeat evaluation he is sleeping comfortably. Patient's prehospital EKG had been reviewed and unremarkable and therefore not repeated at this time. Plan will be discharged back to [facility] following IV potassium replacement. Discharge Plan Triage Chief Complaint: Abn Labs ED Provider: Monserrat Louis Dx/Rx/DC Orders Clinical Impression: Hypokalemia Instructions: ED Hypokalemia Prescriptions: No Action melatonin 10 mg Tablet 10 mg PO QHS acetaminophen 500 mg Tablet 500 mg PO Q8 PRN (Reason: Pain) tamsulosin 0.4 mg Capsule 0.4 mg PO DAILY sertraline [Zoloft] 25 mg Tablet 25 mg PO DAILY sulfamethoxazole-trimethoprim [Bactrim DS] 800-160 mg tablet 1 tab PO BID 5 Days Qty: 10 0RF amoxicillin-pot clavulanate 875-125 mg tablet 1 tab PO BID Qty: 10 0RF hydrocodone-acetaminophen 5-325 mg Tablet 1 tab PO Q8 2 Days Qty: 6 0RF pantoprazole 40 mg Tablet,Delayed Release (Dr/Ec) 40 mg PO BID Qty: 60 0RF ursodiol 500 mg tablet 500 mg PO BID Qty: 1 0RF Primary Care Provider: Marta An Referrals: Marta An MD [Primary Care Provider] - 5-7 Days Disposition Disposition: Long Term Facility Discharge Location: [facility]
[2022-04-14 18:15] LABS: AST(SGOT) 28 U/L (15-37); Alanine Aminotransfer ALT/SGPT 12 U/L (16-61); Albumin, Serum 1.4 g/dL (3.2-5.0); Alkaline Phosphatase 335 U/L (45-117); Anion Gap 10 (5-15); BUN 7 mg/dL (7-18); BUN/Creat Ratio 8.2 RATIO (10-20); Bilirubin, Direct 1.25 mg/dL (0.00-0.30); Calcium,Total 7.6 mg/dL (8.5-10.1); Chloride 109 mmol/L (98-107); Creatinine, Serum 0.86 mg/dL (0.70-1.30); EST Glomerular Filtration Rate 92 mL/min (>60); Est Glom Filt Rate - Afr Amer 112 mL/min (>60); Estimated Creatinine Clearance 62.78 ml/min; Glucose 87 mg/dL (74-106); Magnesium 1.4 mg/dL (1.6-2.6); Potassium 3.3 mmol/L (3.5-5.1); Protein, Total 6.4 g/dL (6.4-8.2); Sodium Level 141 mmol/L (136-145)
[2022-04-14 18:18] LABS: Differential Comment SCANNED
[2022-04-14] MEDS: Potassium Chloride 10mEq/100mL 10 MEQ/100 ML IV.SOLN. 100 MEQ IV BOLUS ×3 (18:44→22:47)
[2022-04-14 20:15] VITALS: BP 104/65; PULSE 81; RESP 21
[2022-04-14 21:30] VITALS: PULSE 84
[2022-04-14 22:08] VITALS: BP 122/71; PULSE 95
[2022-04-14 23:14] VITALS: BP 115/59; PULSE 81; RESP 12
[2022-04-15] VITALS: BP 90/47; PULSE 80; RESP 15; O2SAT 98
[2022-04-15] MEDS: Potassium Chloride 10mEq/100mL 10 MEQ/100 ML IV.SOLN. 100 MEQ IV BOLUS (00:45)
[2022-04-15 00:59] VITALS: BP 95/57; PULSE 96; RESP 17; O2SAT 97
[2022-04-15 01:00] VITALS: BP 107/62; PULSE 75; RESP 15; O2SAT 97
[2022-04-15 03:00] VITALS: BP 127/66; PULSE 76; RESP 15; O2SAT 97
[2022-04-15 03:03] VITALS: BP 127/66; PULSE 76; RESP 15; O2SAT 97
== END 2022-04-15 04:06 | disposition skilled nursing facility (03) ==
PROVIDERS: Emergency Provider Emergency Medicine; PCP Internal Medicine; Visit Provider Emergency Medicine
DX: E87.6 Hypokalemia (principal); N18.2 Chronic kidney disease, stage 2 (mild); I12.9 Hypertensive chronic kidney disease with stage 1 through stage 4 chronic kidney disease, or unspecified chronic kidney disease; E78.2 Mixed hyperlipidemia; R19.7 Diarrhea, unspecified; I25.10 Atherosclerotic heart disease of native coronary artery without angina pectoris
CPT/HCPCS: 80048; 80076; 83735; 85025; 99285; J7050; A4216